=== PATIENT | female | born 1945 | race Caucasian/White ===

== ENCOUNTER 2020-12-05 22:07 | Inpatient (IN) | payer MEDICARE, BC ==
[2020-12-05] MEDS ORDERED: SODIUM CHLORIDE 0.9% 1,000 ML IV STA (22:09)
--- NOTE | 2020-12-05 22:11 | ED ---
Chest Pain HPI - General Stated Complaint: Chest Pain Time Seen by Provider: 12/05/20 22:09 Source: RN notes reviewed, old records reviewed Mode of arrival: EMS Limitations: no limitations - History of Present Illness Initial Comments: This is a 75-year-old female to the ER for evaluation. Patient resents today for evaluation in regards to chest pain. Patient has history of CAD chest pain A. fib hypertension. Patient is on anticoagulation, Xarelto. Patient states she has not been feeling well all day worsening tonight the pain was substernal with no radiation no significant shortness of breath or sweating. MD Complaint: chest pain -: hour(s) (4) Onset: during rest Pain Location: substernal, left chest Pain Radiation: none Severity: moderate Severity scale (1-10): 6 Quality: tightness, heaviness Consistency: constant Improves With: nothing Worsens With: nothing Context: other (none) Anginal Symptoms: nausea, sense of impending doom Other Symptoms: palpitations Treatments Prior to Arrival: none - Related Data Home Medications Medication Instructions Recorded Confirmed Amiodarone HCl [Pacerone] 400 mg PO DAILY 12/05/20 12/05/20 Cholecalciferol [Vitamin D3 (25 50 mcg PO DAILY 12/05/20 12/05/20 Mcg = 1000 Iu)] Cyanocobalamin (Vitamin B-12) 1,000 mcg PO DAILY 12/05/20 12/05/20 [Vitamin B-12] Diltiazem HCl [Diltiazem HCl 24Hr 180 mg PO DAILY 12/05/20 12/05/20 ER (CD)] HYDROcodone/APAP 10-325MG [[place] 1 tab PO Q6H PRN 12/05/20 12/05/20 10-325] Pantoprazole Sodium [Protonix] 40 mg PO DAILY 12/05/20 12/05/20 Rivaroxaban [Xarelto] 20 mg PO DAILY 12/05/20 12/05/20 Venlafaxine HCl ER [Effexor XR] 150 mg PO DAILY 12/05/20 12/05/20 Vit C/E/Zn/Coppr/Lutein/Zeaxan 1 cap PO BID 12/05/20 12/05/20 [Preservision Areds 2 Softgel] amLODIPine [Norvasc] 5 mg PO DIRECTED 12/05/20 12/05/20 Allergies Allergy/AdvReac Type Severity Reaction Status Date / Time diazepam [From Valium] AdvReac Hallucinati Verified 12/05/20 22:15 ons meclizine [From Antivert] AdvReac Anaphylaxis Verified 12/05/20 22:15 Review of Systems ROS Statement: Those systems with pertinent positive or pertinent negative responses have been documented in the HPI. ROS Other: All systems not noted in ROS Statement are negative. EKG Findings - EKG Comments: EKG Findings:: EKG shows a flutter 95 QRS 88 QTc 510 General Exam General appearance: alert, in no apparent distress Head exam: Present: atraumatic, normocephalic, normal inspection Eye exam: Present: normal appearance, PERRL, EOMI. Absent: scleral icterus, conjunctival injection, periorbital swelling ENT exam: Present: normal exam, mucous membranes moist Neck exam: Present: normal inspection. Absent: tenderness, meningismus, lymphadenopathy Respiratory exam: Present: normal lung sounds bilaterally. Absent: respiratory distress, wheezes, rales, rhonchi, stridor Cardiovascular Exam: Present: normal rhythm, bradycardia, normal heart sounds. Absent: systolic murmur, diastolic murmur, rubs, gallop, clicks GI/Abdominal exam: Present: soft, normal bowel sounds. Absent: distended, tenderness, guarding, rebound, rigid Extremities exam: Present: normal inspection, full ROM, normal capillary refill. Absent: tenderness, pedal edema, joint swelling, calf tenderness Back exam: Present: normal inspection Neurological exam: Present: alert, oriented X3, CN II-XII intact Psychiatric exam: Present: normal affect, normal mood Skin exam: Present: warm, dry, intact, normal color. Absent: rash Course Vital Signs 12/05/20 12/05/20 12/06/20 22:09 23:15 00:00 Temperature 97.8 F Pulse Rate 50 L 95 80 Pulse Rate [ Ambulatory Service Representative ] Respiratory 18 18 18 Rate Blood Pressure 110/79 148/82 O2 Sat by Pulse 98 95 95 Oximetry 12/06/20 00:45 Temperature Pulse Rate Pulse Rate [ 64 Ambulatory Service Representative ] Respiratory Rate Blood Pressure O2 Sat by Pulse Oximetry - Reevaluation(s) Reevaluation #1: 12/06/20 01:21 Medical record is reviewed Reevaluation #2: 12/06/20 01:21 Patient still feels uneasy still has chest pain in the ER Reevaluation #3: 12/06/20 01:21 Patient is informed of results and questions are answered - Consultations Consultation #1: Spoke with he to agree to admit this patient Chest Pain MDM - MDM 75 female to the ER for evaluation patient be admitted for chest pain, patient has history of heart disease and CAD and will be admitted for chest pain observation Critical Care Time Critical Care Time: Yes Total Critical Care Time: 31 Disposition Clinical Impression: Chest pain Disposition: ADMITTED IP TO THIS HOSP Condition: Undetermined Is patient prescribed a controlled substance at d/c from ED?: No Referrals: Lewis Mendoza MD [Primary Care Provider] - 1-2 days
[2020-12-05 22:43] LABS: Basophils % (A) 0 %; Eosinophils % (A) 2 %; HCT 39.5 % (34.0-46.0); HGB 13.1 gm/dL (11.4-16.0); Lymphocytes # (A) 2.5 k/uL (1.0-4.8); Lymphocytes % (A) 25 %; MCH 29.5 pg (25.0-35.0); MCHC 33.3 g/dL (31.0-37.0); MCV 88.7 fL (80.0-100.0); Mean Platelet Volume 8.8; Monocytes # (A) 0.5 k/uL (0-1.0); Monocytes % (A) 5 %; Neutrophils # (A) 6.6 k/uL (1.3-7.7); Neutrophils % (A) 66 %; Platelet Count 219 k/uL (150-450); RBC 4.45 m/uL (3.80-5.40); RDW 15.5 % (11.5-15.5); WBC 10.1 k/uL (3.8-10.6)
[2020-12-05 22:44] LABS: Eosinophils # (A) 0.2 k/uL (0-0.7)
--- NOTE | 2020-12-05 22:50 | XR ---
EXAMINATION TYPE: XR chest 2V DATE OF EXAM: 12/05/2020 COMPARISON: NONE HISTORY: Chest pain TECHNIQUE: 2 views FINDINGS: There is no heart failure nor confluent pneumonic infiltrate. Costophrenic angles are clear . There are no hilar masses. There are chest leads. IMPRESSION: No active cardiopulmonary disease. Normal heart.
[2020-12-05 23:06] LABS: Partial Thromboplastin Time 23.9 sec (22.0-30.0); Prothrombin Time 10.5 sec (9.0-12.0)
[2020-12-05 23:30] LABS: Albumin 3.6 g/dL (3.5-5.0); Calcium 8.8 mg/dL (8.4-10.2); Magnesium 2.1 mg/dL (1.6-2.3); Total Bilirubin 0.2 mg/dL (0.2-1.3); Total Protein 6.4 g/dL (6.3-8.2)
[2020-12-06] MEDS ORDERED: ASPIRIN 81 MG PO STA (01:18)
[2020-12-06] MEDS ORDERED: NITROGLYCERIN SL TABS 0.4 MG TAB SUBLINGUAL PRN ×3 (01:18→14:33)
[2020-12-06] MEDS: MORPHINE SULFATE 4 MG/ML SYRINGE IV PRN ×2 (02:20→08:05)
[2020-12-06] MEDS ORDERED: HEPARIN SODIUM 1,000 UN/ML (10ML VL) IV ONE (04:46)
[2020-12-06] MEDS ORDERED: HEPARIN SODIUM 1,000 UN/ML (10ML VL) IV PRN (04:49)
[2020-12-06] MEDS ORDERED: HEPARIN SOD,PORK IN 0.45% NACL 25,000 UNIT in 0.45% NACL 1 250ML.BAG IV SCH (05:00)
--- NOTE | 2020-12-06 08:45 | P.HPIM ---
History of Present Illness H&P Date: 12/06/20 Chief Complaint: Chest pain This is history of physical 75-year-old white female with known history of PAD and hypertension. The patient states significant chest pressure. There has been some titration of her cardiac meds in the past. She states some palpitations but no pain over the last several days. Yesterday she had significant substernal chest pain. Some nausea and diaphoresis is stated. The patient is admitted for rule out myocardial infraction and chest pain. Review of Systems Constitutional: Denies chills, Denies fever Eyes: denies blurred vision, denies pain Ears, nose, mouth and throat: Denies headache, Denies sore throat Cardiovascular: Reports chest pain, Denies leg edema Genitourinary: Denies dysuria, Denies hematuria Integumentary: Reports rash Neurological: Denies numbness, Denies weakness Past Medical History Past Medical History: Coronary Artery Disease (CAD), Chest Pain / Angina, Hypertension Additional Past Medical History / Comment(s): extensive cardiac history, A-fib History of Any Multi-Drug Resistant Organisms: None Reported Past Surgical History: Adenoidectomy, Heart Catheterization With Stent, Orthopedic Surgery, Tonsillectomy Additional Past Surgical History / Comment(s): stents in lower extremities Past Psychological History: No Psychological Hx Reported Smoking Status: Former smoker Past Alcohol Use History: Occasional Past Drug Use History: None Reported Medications and Allergies Home Medications Medication Instructions Recorded Confirmed Type Amiodarone HCl [Pacerone] 400 mg PO DAILY 12/05/20 12/05/20 History Cholecalciferol [Vitamin D3 (25 50 mcg PO DAILY 12/05/20 12/05/20 History Mcg = 1000 Iu)] Cyanocobalamin (Vitamin B-12) 1,000 mcg PO DAILY 12/05/20 12/05/20 History [Vitamin B-12] Diltiazem HCl [Diltiazem HCl 24Hr 180 mg PO DAILY 12/05/20 12/05/20 History ER (CD)] HYDROcodone/APAP 10-325MG [[place] 1 tab PO Q6H PRN 12/05/20 12/05/20 History 10-325] Pantoprazole Sodium [Protonix] 40 mg PO DAILY 12/05/20 12/05/20 History Rivaroxaban [Xarelto] 20 mg PO DAILY 12/05/20 12/05/20 History Venlafaxine HCl ER [Effexor XR] 150 mg PO DAILY 12/05/20 12/05/20 History Vit C/E/Zn/Coppr/Lutein/Zeaxan 1 cap PO BID 12/05/20 12/05/20 History [Preservision Areds 2 Softgel] amLODIPine [Norvasc] 5 mg PO DIRECTED 12/05/20 12/05/20 History Allergies Allergy/AdvReac Type Severity Reaction Status Date / Time diazepam [From Valium] AdvReac Hallucinati Verified 12/05/20 22:15 ons meclizine [From Antivert] AdvReac Anaphylaxis Verified 12/05/20 22:15 Physical Exam Vitals: Vital Signs Temp Pulse Pulse Resp BP BP Pulse Ox 12/06/20 07:51 97.8 F 65 18 131/82 99 12/06/20 05:35 98.0 F 106 H 18 94/71 97 12/06/20 02:16 97.9 F 115 H 18 138/93 95 12/06/20 00:45 64 12/06/20 00:00 80 18 95 12/05/20 23:15 95 18 148/82 95 12/05/20 22:09 97.8 F 50 L 18 110/79 98 Intake and Output 12/05/20 12/06/20 12/06/20 22:59 06:59 14:59 Other: Weight 107.048 kg - Constitutional General appearance: obese - Neck Neck: no lymphadenopathy - Respiratory Respiratory: bilateral: CTA - Cardiovascular Rhythm: regular Heart sounds: normal: S1, S2 Abnormal Heart Sounds: no S3 Gallop - Gastrointestinal General gastrointestinal: soft, no tenderness - Integumentary Integumentary: no cellulitis - Neurologic Neurologic: CNII-XII intact - Musculoskeletal Musculoskeletal: strength equal bilaterally - Psychiatric Psychiatric: A&O x's 3, appropriate affect, intact judgment & insight Results CBC & Chem 7: 12/05/20 22:17 12/05/20 22:17 Labs: Abnormal Lab Results - Last 24 Hours (Table) 12/05/20 12/06/20 12/06/20 Range/Units 22:17 02:19 05:00 Sodium 135 L (137-145) mmol/L BUN 21 H (7-17) mg/dL Glucose 146 H (74-99) mg/dL Troponin I 1.250 H* 2.080 H* (0.000-0.034) ng/mL Assessment and Plan (1) CAD (coronary artery disease) Current Visit: Yes Status: Acute Code(s): I25.10 - ATHSCL HEART DISEASE OF [place] CORONARY ARTERY W/O ANG PCTRS SNOMED Code(s): 13569184 (2) Hypertension Current Visit: Yes Status: Acute Code(s): I10 - ESSENTIAL (PRIMARY) HYPERTENSION SNOMED Code(s): 00321195 (3) PAD (peripheral artery disease) Current Visit: Yes Status: Acute Code(s): I73.9 - PERIPHERAL VASCULAR DISEASE, UNSPECIFIED SNOMED Code(s): 927131854 (4) Chest pain Current Visit: Yes Status: Acute Code(s): R07.9 - CHEST PAIN, UNSPECIFIED SNOMED Code(s): 65395620 Plan: Rule out myocardial infarction. Await cardiology input. Reconcile medications as necessary. Prognosis is guarded. See orders otherwise.
[2020-12-06] MEDS ORDERED: HYDROcodone/APAP 10-325MG 1 EACH TAB PO PRN (08:46)
[2020-12-06] MEDS ORDERED: AMIODARONE 200 MG TAB PO SCH (09:00)
[2020-12-06] MEDS ORDERED: RIVAROXABAN 20 MG TAB PO SCH (09:00)
[2020-12-06] MEDS ORDERED: DILTIAZEM CD 180 MG CAP.ER.24H PO SCH (09:00)
[2020-12-06] MEDS: VIT A,C & E-LUTEIN-MINERALS 1 EACH TAB PO SCH ×2 (10:25→20:08)
[2020-12-06] MEDS: PANTOPRAZOLE 40 MG TABLET PO SCH (10:25)
[2020-12-06] MEDS: VENLAFAXINE HCL ER 150 MG CAP PO SCH (10:25)
[2020-12-06] MEDS: CYANOCOBALAMIN 500 MCG TAB PO SCH (10:25)
[2020-12-06] MEDS: CHOLECALCIFEROL 25 MCG (1000 IU) TABLET PO SCH (10:25)
[2020-12-06] MEDS ORDERED: SODIUM CHLORIDE 0.9% 1,000 ML in EMPTY BAG 1 BAG IV ONE (10:56)
[2020-12-06] MEDS ORDERED: ALPRAZolam 0.25 MG TAB PO PRN (10:56)
[2020-12-06] MEDS ORDERED: ATORVASTATIN 80 MG TAB PO STA (10:56)
[2020-12-06] MEDS ORDERED: ASPIRIN 325 MG TAB PO STA (10:56)
[2020-12-06] MEDS ORDERED: ALPRAZolam 0.5 MG TAB PO PRN (10:56)
--- NOTE | 2020-12-06 11:22 | P.CRDCN ---
History of Present Illness Consult date: 12/06/20 History of present illness: HISTORY OF PRESENT ILLNESS: This is a 75-year-old female with a past medical history significant for hypertension, peripheral vascular disease, former nicotine dependence, and recent diagnosis of paroxysmal atrial fibrillation. Patient follows in the office with Dr. Mulligan. We have been asked to see the patient in consultation for elevated troponins. Patient examined at the bedside in the emergency room. Patient's spouse present. Patient states yesterday she began having chest pain. She denied radiation of the pain. She reports feeling diaphoretic. She also reports that she was having palpitations. She states her son called 911 and she came to the hospital via EMS for evaluation. Patient reports she has been having episodes of dizziness at home. She also reports episodes of her chest "burning" at night when her "meds wear off". Patient reports having chest pain at 2:00 in the morning and received a dose of morphine with relief. She also states she had another episode of chest pain this morning around 8:30. At the time of examination, patient denies chest pain or pressure. Patient reports taking Xarelto at home for her atrial for ablation. She states her last dose was Sunday evening. EKG reveals atrial flutter with controlled ventricular rate. Telemetry reveals sinus mechanism Chest xray no active cardiac pulmonary disease. Laboratory data: WBC 10.1. Hemoglobin 13.1. Platelet count 219. Sodium 135. Potassium 4.0. BUN 21. Creatinine 0.92. Magnesium 2.1. Troponin 0.029. 1.250. 2.080. Current home cardiac medications include Xarelto 20 mg daily, amiodarone 400 mg daily, and Cardizem CD 180 mg daily REVIEW OF SYSTEMS: At the time of my exam: CONSTITUTIONAL: Denies fever or chills. HEENT: Denies blurred vision, vision changes, or eye pain. Denies hemoptysis CARDIOVASCULAR: Denies chest pain. Denies orthopnea. Denies PND. Denies pa lpitations RESPIRATORY: Denies shortness of breath. GASTROINTESTINAL: Denies abdominal pain. Denies nausea or vomiting. HEMATOLOGIC: Denies bleeding disorders. GENITOURINARY: Denies any blood in urine. SKIN: Denies pruitis. Denies rash. PHYSICAL EXAM: VITAL SIGNS: Reviewed. GENERAL: Well-developed in no acute distress. HEENT: Head is normocephalic. Pupils are equal, round. Sclerae anicteric. Mucous membranes of the mouth are moist. Neck supple. No JVD or thyromegaly LUNGS: Respirations even and unlabored. Lungs essentially clear to auscultation bilaterally. HEART: Regular rate and rhythm. S1 and S2 heard. ABDOMEN: Soft. Nondistended. Nontender. EXTREMITIES: Normal range of motion. No clubbing or cyanosis. Peripheral pulses intact. Trace bilateral lower extremity edema NEUROLOGIC: Awake and alert. Oriented x 3. ASSESSMENT: Non-ST elevated myocardial infarction Paroxysmal atrial fibrillation, on anticoagulation with Xarelto Peripheral vascular disease Hypertension Former nicotine dependence PLAN: Obtain 2D echo to assess cardiac structure and function Decrease aspirin to 81 mg daily Continue to hold Xarelto. Continue IV heparin Add metoprolol 25mg BID Patient to undergo cardiac cath today with Dr. Mulligan Further recommendations pending patient course Nurse practitioner note has been reviewed by physician. Signing provider agrees with the documented findings, assessment, and plan of care. Past Medical History Past Medical History: Coronary Artery Disease (CAD), Chest Pain / Angina, Hypertension Additional Past Medical History / Comment(s): extensive cardiac history, A-fib History of Any Multi-Drug Resistant Organisms: None Reported Past Surgical History: Adenoidectomy, Heart Catheterization With Stent, Orthopedic Surgery, Tonsillectomy Additional Past Surgical History / Comment(s): stents in lower extremities Past Anesthesia/Blood Transfusion Reactions: No Reported Reaction Date of Last Stent Placement:: 2008 Past Psychological History: No Psychological Hx Reported Smoking Status: Former smoker Past Alcohol Use History: Occasional Past Drug Use History: None Reported Medications and Allergies Home Medications Medication Instructions Recorded Confirmed Type Amiodarone HCl [Pacerone] 400 mg PO DAILY 12/05/20 12/05/20 History Cholecalciferol [Vitamin D3 (25 50 mcg PO DAILY 12/05/20 12/05/20 History Mcg = 1000 Iu)] Cyanocobalamin (Vitamin B-12) 1,000 mcg PO DAILY 12/05/20 12/05/20 History [Vitamin B-12] Diltiazem HCl [Diltiazem HCl 24Hr 180 mg PO DAILY 12/05/20 12/05/20 History ER (CD)] HYDROcodone/APAP 10-325MG [[place] 1 tab PO Q6H PRN 12/05/20 12/05/20 History 10-325] Pantoprazole Sodium [Protonix] 40 mg PO DAILY 12/05/20 12/05/20 History Rivaroxaban [Xarelto] 20 mg PO DAILY 12/05/20 12/05/20 History Venlafaxine HCl ER [Effexor XR] 150 mg PO DAILY 12/05/20 12/05/20 History Vit C/E/Zn/Coppr/Lutein/Zeaxan 1 cap PO BID 12/05/20 12/05/20 History [Preservision Areds 2 Softgel] Allergies Allergy/AdvReac Type Severity Reaction Status Date / Time diazepam [From Valium] AdvReac Hallucinati Verified 12/05/20 22:15 ons meclizine [From Antivert] AdvReac Anaphylaxis Verified 12/05/20 22:15 Physical Exam Vitals: Vital Signs Temp Pulse Pulse Resp BP BP Pulse Ox 12/06/20 07:51 97.8 F 65 18 131/82 99 12/06/20 05:35 98.0 F 106 H 18 94/71 97 12/06/20 02:16 97.9 F 115 H 18 138/93 95 12/06/20 00:45 64 12/06/20 00:00 80 18 95 12/05/20 23:15 95 18 148/82 95 12/05/20 22:09 97.8 F 50 L 18 110/79 98 Intake and Output 12/05/20 12/06/20 12/06/20 22:59 06:59 14:59 Other: Weight 107.048 kg 107.048 kg Results 12/05/20 22:17 12/05/20 22:17 Cardiac Enzymes 12/05/20 12/05/20 12/06/20 Range/Units 22:17 22:17 02:19 AST 26 (14-36) U/L Troponin I 0.029 1.250 H* (0.000-0.034) ng/mL 12/06/20 Range/Units 05:00 AST (14-36) U/L Troponin I 2.080 H* (0.000-0.034) ng/mL Coagulation 12/05/20 Range/Units 22:17 PT 10.5 (9.0-12.0) sec APTT 23.9 (22.0-30.0) sec CBC 12/05/20 Range/Units 22:17 WBC 10.1 (3.8-10.6) k/uL RBC 4.45 (3.80-5.40) m/uL Hgb 13.1 (11.4-16.0) gm/dL Hct 39.5 (34.0-46.0) % Plt Count 219 (150-450) k/uL Comprehensive Metabolic Panel 12/05/20 Range/Units 22:17 Sodium 135 L (137-145) mmol/L Potassium 4.0 (3.5-5.1) mmol/L Chloride 102 (98-107) mmol/L Carbon Dioxide 25 (22-30) mmol/L BUN 21 H (7-17) mg/dL Creatinine 0.92 (0.52-1.04) mg/dL Glucose 146 H (74-99) mg/dL Calcium 8.8 (8.4-10.2) mg/dL AST 26 (14-36) U/L ALT 17 (4-34) U/L Alkaline Phosphatase 74 (38-126) U/L Total Protein 6.4 (6.3-8.2) g/dL Albumin 3.6 (3.5-5.0) g/dL Current Medications Generic Name Dose Route Start Last Admin Trade Name Freq PRN Reason Stop Dose Admin Hydrocodone Bitart/Acetaminophen 1 each 12/06/20 08:46 Hydrocodone/Apap 10-325mg 1 Each Tab PO Q6H PRN Pain Alprazolam 0.25 mg 12/06/20 10:56 Alprazolam 0.25 Mg Tab PO Q6HR PRN Mild Anxiety Alprazolam 0.5 mg 12/06/20 10:56 Alprazolam 0.5 Mg Tab PO Q6HR PRN Moderate Anxiety Amiodarone HCl 400 mg 12/06/20 09:00 12/06/20 10:25 Amiodarone 200 Mg Tab PO 400 mg DAILY MISSY Administration Aspirin 325 mg 12/07/20 09:00 Aspirin 325 Mg Tab PO DAILY MISSY Cholecalciferol 50 mcg 12/06/20 09:00 12/06/20 10:25 Cholecalciferol 25 Mcg (1000 Iu) Tablet PO 50 mcg DAILY MISSY Administration Cyanocobalamin 1,000 mcg 12/06/20 09:00 12/06/20 10:25 Cyanocobalamin 500 Mcg Tab PO 1,000 mcg DAILY MISSY Administration Diltiazem HCl 180 mg 12/06/20 09:00 12/06/20 10:25 Diltiazem Cd 180 Mg Cap.Er.24h PO 180 mg DAILY MISSY Administration Heparin Sodium (Porcine) 0 unit 12/06/20 04:49 Heparin Sodium 1,000 Un/Ml (10ml Vl) IV Q6HR PRN Low PTT Protocol Heparin Sodium/Sodium Chloride 250 mls @ 10.009 mls/hr 12/06/20 05:00 12/06/20 05:34 25,000 unit/ Sodium Chloride IV 9.35 units/kg/hr .Q24H MISSY 10.009 mls/hr Administration Protocol 9.35 UNITS/KG/HR Sodium Chloride 1,000 ml/ IV 1,000 mls @ 107.048 mls/hr 12/06/20 10:56 Solution IV 12/06/20 20:16 .Q9H21M ONE 1 ML/KG/HR Heparin Sodium (Porcine) 10, 1,001 mls @ 999 mls/hr 12/07/20 07:00 000 unit/ Sodium Chloride IRRIGATION 12/07/20 23:00 ONCE PRN INTRA-OP Heparin Sodium (Porcine) 2,500 250.5 mls @ 250 mls/hr 12/07/20 07:00 unit/ Sodium Chloride IRRIGATION 12/07/20 23:00 ONCE PRN INTRA-OP Morphine Sulfate 4 mg 12/06/20 01:18 12/06/20 08:05 Morphine Sulfate 4 Mg/Ml Syringe IV 4 mg Q4HR PRN Administration Chest Pain Multivitamins/Minerals 1 each 12/06/20 09:00 12/06/20 10:25 Vit A,C & D-Valjol-Rbqtqksq 1 Each Tab PO 1 each BID MISSY Administration Nitroglycerin 0.4 mg 12/06/20 01:18 Nitroglycerin Sl Tabs 0.4 Mg Tab SUBLINGUAL Q5M PRN Chest Pain Nitroglycerin 0.4 mg 12/06/20 10:56 Nitroglycerin Sl Tabs 0.4 Mg Tab SUBLINGUAL Q5M PRN Chest Pain Pantoprazole Sodium 40 mg 12/06/20 09:00 12/06/20 10:25 Pantoprazole 40 Mg Tablet PO 40 mg DAILY@0730 MISSY Administration Venlafaxine HCl 150 mg 12/06/20 09:00 12/06/20 10:25 Venlafaxine Hcl Er 150 Mg Cap PO 150 mg DAILY MISSY Administration Intake and Output 12/05/20 12/06/20 12/06/20 22:59 06:59 14:59 Other: Weight 107.048 kg 107.048 kg 12/05/20 22:17 12/05/20 22:17
[2020-12-06] MEDS ORDERED: VERAPAMIL 2.5 MG/ML 2 ML AMP ONE (11:49)
[2020-12-06] MEDS ORDERED: LIDOCAINE 1% INJ 10MG/ML (20 ML MDV) ONE ×2 (11:50→12:30)
[2020-12-06] MEDS ORDERED: IV FLUID CONTINUATION 1,000 ML IV ONE (11:55)
[2020-12-06] MEDS ORDERED: fentaNYL (PF) 50 MCG/ML 2 ML AMP ONE (12:17)
[2020-12-06] MEDS ORDERED: LIDOCAINE 1% INJ 10MG/ML (20 ML MDV) SQ ONE ×2 (12:20)
[2020-12-06] MEDS: MIDAZOLAM 2 MG/2 ML VIAL IV ONE ×2 (12:21→13:30)
[2020-12-06] MEDS ORDERED: fentaNYL (PF) 50 MCG/ML 2 ML AMP IV ONE (12:21)
[2020-12-06] MEDS ORDERED: VERAPAMIL SYRINGE (5 MG/10 ML) INTRAARTER ONE (12:32)
[2020-12-06] MEDS: HEPARIN SODIUM 1,000 UN/ML (10ML VL) IV ONE ×2 (12:33→12:57)
[2020-12-06] MEDS ORDERED: CLOPIDOGREL 75 MG TAB ONE (12:56)
[2020-12-06] MEDS ORDERED: CLOPIDOGREL 75 MG TAB PO ONE (13:02)
--- NOTE | 2020-12-06 13:02 | P.CARDCATH ---
Date of Procedure: 12/06/20 Preoperative Diagnosis: Non-STEMI Postoperative Diagnosis: Critical lesion involving the mid RCA and moderate disease in the LAD Procedure(s) Performed: Left heart catheterization without left ventriculography Description of Procedure: HISTORY: This is a 75-year-old female with history of hypertension and previous history of smoking and also peripheral vascular disease with previous aortobifemoral bypass, who presented to the hospital with complaints of chest pain, positive troponins suggestive of non-ST DC. Patient is advised to have a cardiac catheterization for definitive diagnosis CONSENT:I have discussed the risks, benefits and alternative therapies for the above-mentioned procedure and for both sedation/analgesia as well as necessary blood product administration, if indicated, as they pertain to this patient. The patient has indicated understanding and acceptance of the risks and procedures discussed. PROCEDURE: Patient was brought to the lab in a fasting state. Patient was given some IV sedation. The right brachial area is infiltrated with lidocaine and right brachial artery was entered using Seldinger technique. A 6-Hebrew catheter was left in place and selective coronary arteriography was performed. Patient tolerated the procedure well. Patient went on to have stent placement of the RCA. No immediate complications were noted and patient was transferred to [facility] in a stable condition Conscious Sedation: Versed 1mg Fentanyl 50 g Duration 27minutes HEMODYNAMICS: The aortic pressure is about 137/70. Left ventricle end-diastolic pressure is 20-25 SELECTIVE CORONARY ARTERIOGRAPHY: LEFT MAIN: Normal length and patent THE LEFT ANTERIOR DESCENDING CORONARY ARTERY: . This is a good caliber vessel giving rise good-sized diagonal branch. There is a 50- 60% lesion in the LAD and origin of the diagonal THE LEFT CIRCUMFLEX AND IS CORONARY ARTERY: This is a fair caliber vessel. Free of any significant focal lesion THE RIGHT CORONARY ARTERY: . This is a good caliber vessel with diffuse disease involving the midportion with about 95% stenosis at worst with a filling defect suggestive of acute ruptured plaque LEFT VENTRICULOGRAPHY: Not performed FINAL IMPRESSION: . Critical lesion involving the RCA. Moderate disease in one LAD PLAN: And placement of the RCA to be done by Dr. Pruitt PROGNOSIS: Fair
[2020-12-06] MEDS ORDERED: IOPAMIDOL-370 125ML BTL INJ ONE (13:17)
[2020-12-06] MEDS ORDERED: HYDROmorphone 0.5 MG/0.5 ML SYRINGE IVP ONE (13:18)
[2020-12-06] MEDS ORDERED: SODIUM CHLORIDE 0.9% 500 ML 500 ML IV ONE (13:20)
[2020-12-06] MEDS: HEPARIN SODIUM 1,000 UN/ML (10ML VL) ONE ×2 (13:35→14:12)
[2020-12-06] MEDS ORDERED: IOPAMIDOL-370 100ML BTL INJ ONE ×2 (14:09→14:27)
[2020-12-06] MEDS ORDERED: MAG HYDROX/AL HYDROX/SIMETH 30 ML CUP PO PRN (14:33)
[2020-12-06] MEDS ORDERED: RX INFO: IV CONTRAST WAS GIVEN 1 EACH MISC MISCELLANE PRN (14:33)
[2020-12-06] MEDS ORDERED: ATROPINE SULFATE 0.1 MG/ML 10ML SYRINGE IV PRN (14:33)
[2020-12-06] MEDS ORDERED: ZOLPIDEM 5 MG TAB PO PRN (14:33)
[2020-12-06] MEDS ORDERED: SODIUM CHLORIDE 0.9% 1,000 ML IV SCH (14:45)
[2020-12-06] MEDS: METOPROLOL TARTRATE 25 MG TAB PO SCH ×2 (15:05→23:00)
--- NOTE | 2020-12-06 15:26 | PTCA ---
PERCUTANEOUSTRANS CORORONARY ANGIOGRAPHY Mrs. Sharpe is a 75-year-old female with known history of severe peripheral vascular disease who presented with fat-RG-nooffvv-elevation myocardial infarction, was evaluated by Dr. Mulligan and underwent cardiac catheterization. She was found to have subtotally occluded mid right coronary artery with heavily calcified vessel; in view of that, recommendation was made regarding angioplasty and stenting. The procedure as well as its risks and complications were discussed with the patient, who was in full understanding and agreement. PROCEDURE: A 6-Wallisian AL0.75 guiding catheter was introduced into the system after cannulating the ostium of the right coronary artery. There was inability to advance the wire and there was evidence to suggest a total occlusion of the vessel with a possible dissection. At that time, the guiding catheter was removed and a 6-Wallisian FR4 and subsequently a 6- Wallisian FR3.5 guiding catheter was introduced into the system. After engaging the right coronary ostium, a 0.014 balanced medium weight J-wire with the help of a straight Super Cross was successful in crossing the lesion and positioned distally. Following that, a 2.5 x 12 mm NC Trek balloon was advanced and multiple inflations to a maximum of 8 atmospheres were done. Following that the balloon was removed and a 2.5 x 33 mm Xience Skypoint was deployed proximally and post-dilated at 16 atmospheres. Following that the balloon was removed and another 0.014 balanced medium weight J-wire was advanced next to the first one in a joesph fashion, positioned distally. Then another 2.5 x 33 mm Xience Skypoint was advanced, positioned distal to the first one and post- dilated at 16 atmospheres. Following that the balloon was removed an IVUS [place] Eye catheter was introduced and images were obtained. Following that, the IVUS catheter was removed and a 3.5 x 18 mm Xience Skypoint was positioned proximally at the ostium and post-dilated at 16 atmospheres. Following that, the balloon was removed and a 3.75 x 15 mm NC Trek balloon was advanced and multiple inflations throughout the stented segments were done at a maximum of 10 atmospheres. After the last inflation, after appropriate wait, the balloon and the guidewire were withdrawn back into the guiding catheter. Images were obtained and repeated. Those images revealed stable successful stenting. At that point, the guiding catheter, the balloon and the guidewire were removed. The sheath was sutured in place the patient was returned to her room in stable condition. Of note, the patient received a total of 9000 units of intravenous heparin and her ACT was followed. She also received a loading dose of clopidogrel. Her chest discomfort resolved at the end of the procedure. RESULT: Successful stenting of the right coronary artery with reduction of stenosis from 95% to 0%. RECOMMENDATIONS: The patient will be continued on aspirin, Plavix, beta jarod, ARI inhibitor and statin. The importance of dual antiplatelet treatment was discussed with the patient her family, and they are in full understanding and agreement. Duration of the procedure was 82 minutes. BRETT / SANJUANAN: [id number] / ANDRZEJ
[2020-12-06] MEDS: lisinopriL 5 MG TAB PO SCH (19:57)
[2020-12-06] MEDS ORDERED: METOPROLOL TARTRATE 25 MG TAB PO SCH (21:00)
[2020-12-06] MEDS: RIVAROXABAN 20 MG TAB PO SCH (22:59)
[2020-12-07] MEDS: PANTOPRAZOLE 40 MG TABLET PO SCH (06:47)
[2020-12-07] MEDS ORDERED: HEPARIN SODIUM,PORCINE 2,500 UNIT in SODIUM CHLORIDE 0.9% 250 ML IRRIGATION PRN (07:00)
[2020-12-07] MEDS ORDERED: HEPARIN SODIUM,PORCINE 10,000 UNIT in SODIUM CHLORIDE 0.9% 1,000 ML IRRIGATION PRN (07:00)
[2020-12-07 08:52] LABS: Calcium 8.9 mg/dL (8.4-10.2); Potassium 4.6 mmol/L (3.5-5.1)
[2020-12-07] MEDS: ASPIRIN 81 MG PO SCH (08:56)
[2020-12-07] MEDS: METOPROLOL TARTRATE 25 MG TAB PO SCH ×3 (08:56→22:37)
[2020-12-07] MEDS: VIT A,C & E-LUTEIN-MINERALS 1 EACH TAB PO SCH ×2 (08:56→19:54)
[2020-12-07] MEDS: AMIODARONE 200 MG TAB PO SCH (08:56)
[2020-12-07] MEDS: VENLAFAXINE HCL ER 150 MG CAP PO SCH (08:56)
[2020-12-07] MEDS: CHOLECALCIFEROL 25 MCG (1000 IU) TABLET PO SCH (08:57)
[2020-12-07] MEDS: PRASUGREL 10 MG TAB PO SCH (08:57)
[2020-12-07] MEDS: lisinopriL 5 MG TAB PO SCH ×2 (08:57→19:54)
[2020-12-07] MEDS: CYANOCOBALAMIN 500 MCG TAB PO SCH (08:57)
[2020-12-07] MEDS ORDERED: ASPIRIN 325 MG TAB PO SCH (09:00)
[2020-12-07] MEDS ORDERED: ASPIRIN 81 MG PO SCH (09:00)
[2020-12-07 11:39] VITALS: BMI 44.2
--- NOTE | 2020-12-07 11:56 | ECHOF ---
Referral Reason:LV functino MEASUREMENTS -------- HEIGHT: 157.5 cm WEIGHT: 109.8 kg BP: 120/28 RVIDd: 2.8 cm (< 3.3) IVSd: 1.2 cm (0.6 - 1.1) LVIDd: 4.4 cm (3.9 - 5.3) LVPWd: 1.1 cm (0.6 - 1.1) IVSs: 1.8 cm LVIDs: 2.6 cm LVPWs: 1.9 cm LAESV Index (A-L): 26.41 ml/m Ao Diam: 3.3 cm (2.0 - 3.7) AV Cusp: 2.2 cm (1.5 - 2.6) LA Diam: 2.6 cm (2.7 - 3.8) MV EXCURSION: 12.842 mm (> 18.000) MV EF SLOPE: 56 mm/s (70 - 150) EPSS: 1.6 cm MV E Ran: 1.02 m/s MV DecT: 280 ms MV A Ran: 1.19 m/s MV E/A Ratio: 0.86 RAP: 5.00 mmHg RVSP: 11.95 mmHg FINDINGS -------- This was a technically difficult study with suboptimal views. The left ventricular size is normal. There is mild concentric left ventricular hypertrophy. Overa ll left ventricular systolic function is low-normal with, an EF between 50 - 55 %. Normal LAP Grade 1 Diastolic Dysfunction. Basal inferior LV wall motion is hypokinetic. Basal inferoseptal LV wa ll motion is hypokinetic. The right ventricle is normal in size. The left atrial size is normal. The right atrial size is normal. Lumason used The aortic valve is trileaflet and appears structurally normal. The mitral valve is normal. There is trace mitral regurgitation. The tricuspid valve appears structurally normal. Trace tricuspid regurgitation present. Right cain tricular systolic pressure is normal at < 35 mmHg. There is no pulmonic regurgitation present. The aortic root size is normal. IVC Not well visulized. There is no pericardial effusion. CONCLUSIONS -------- 1. The left ventricular size is normal. 2. There is mild concentric left ventricular hypertrophy. 3. Overall left ventricular systolic function is low-normal with, an EF between 50 - 55 %. 4. Normal LAP Grade 1 Diastolic Dysfunction. 5. Basal inferior LV wall motion is hypokinetic. 6. Basal inferoseptal LV wall motion is hypokinetic. 7. There is trace mitral regurgitation. 8. Trace tricuspid regurgitation present. 9. There is no pericardial effusion. REGISTERED NURSE POST PARTUM: Britney Vaca RDCS
--- NOTE | 2020-12-07 14:22 | P.PN ---
Subjective Progress Note Date: 12/07/20 HISTORY OF PRESENT ILLNESS: This is a 75-year-old female with a past medical history significant for hypertension, peripheral vascular disease, former nicotine dependence, and recent diagnosis of paroxysmal atrial fibrillation. Patient follows in the office with Dr. Mulligan. We have been asked to see the patient in consultation for elevated troponins. Patient examined at the bedside in the emergency room. Patient's spouse present. Patient states yesterday she began having chest pain. She denied radiation of the pain. She reports feeling diaphoretic. She also reports that she was having palpitations. She states her son called 911 and she came to the hospital via EMS for evaluation. Patient reports she has been having episodes of dizziness at home. She also reports episodes of her chest "burning" at night when her "meds wear off". Patient reports having chest pain at 2:00 in the morning and received a dose of morphine with relief. She also states she had another episode of chest pain this morning around 8:30. At the time of examination, patient denies chest pain or pressure. Patient reports taking Xarelto at home for her atrial for ablation. She states her last dose was Sunday evening. EKG reveals atrial flutter with controlled ventricular rate. Telemetry reveals sinus mechanism Chest xray no active cardiac pulmonary disease. Laboratory data: WBC 10.1. Hemoglobin 13.1. Platelet count 219. Sodium 135. Potassium 4.0. BUN 21. Creatinine 0.92. Magnesium 2.1. Troponin 0.029. 1.250. 2.080. Current home cardiac medications include Xarelto 20 mg daily, amiodarone 400 mg daily, and Cardizem CD 180 mg daily 12/07/2020 Patient examined this morning at the bedside. Patient is status post cardiac catheterization with Dr. Mulligan. She underwent stenting of the right coronary artery with Dr. Pruitt. Patient denies chest pain or pressure. She denies shortness of breath. Vital signs are stable. Echocardiogram completed reveals ejection fraction 50-55%. Basal inferior LV wall hypokinesis. Nasal inferior septal LV wall hypokinesis. Trace mitral regurgitation. Trace tricuspid regurgitation. Vital signs are stable. PHYSICAL EXAM: VITAL SIGNS: Reviewed. GENERAL: Well-developed in no acute distress. HEENT: Head is normocephalic. Pupils are equal, round. Sclerae anicteric. Mucous membranes of the mouth are moist. Neck supple. No JVD or thyromegaly LUNGS: Respirations even and unlabored. Lungs essentially clear to auscultation bilaterally. HEART: Regular rate and rhythm. S1 and S2 heard. EXTREMITIES: Normal range of motion. No clubbing or cyanosis. Peripheral pulses intact. Trace bilateral lower extremity edema. Right brachial cath site with pulse present. ASSESSMENT: Non-ST elevated myocardial infarction, status post PCI to RCA Paroxysmal atrial fibrillation, on anticoagulation with Xarelto Peripheral vascular disease Hypertension Former nicotine dependence PLAN: Continue current cardiac medications Continue to observe patient for an additional 24 hours. Possible discharge home tomorrow Further recommendations pending patient course Nurse practitioner note has been reviewed by physician. Signing provider agrees with the documented findings, assessment, and plan of care. Objective - Vital Signs Vital signs: Vital Signs Temp 98.0 F 12/07/20 12:00 Pulse 67 12/07/20 12:00 Resp 18 12/07/20 12:00 BP 128/66 12/07/20 12:00 Pulse Ox 96 12/07/20 12:00 Intake & Output 12/06/20 12/07/20 12/07/20 18:59 06:59 18:59 Intake Total 470 240 840 Output Total 0 Balance 470 240 840 Weight 109.8 kg 109.8 kg Intake: IV 350 Oral 120 240 840 Output: Urine 0 Other: Voiding Method Toilet Toilet # Voids 2 1 1 - Labs CBC & Chem 7: 12/05/20 22:17 12/07/20 07:58 Labs: Abnormal Lab Results - Last 24 Hours (Table) 12/07/20 Range/Units 07:58 Glucose 103 H (74-99) mg/dL
[2020-12-07] MEDS: RIVAROXABAN 20 MG TAB PO SCH (17:27)
[2020-12-07 20:15] LABS: Chol/HDL Ratio 4.13; LDL Cholesterol,Calculated 120.6 mg/dL (0.0-131.0); VLDL Calculation 20.4 mg/dL (5.00-40.00)
[2020-12-07] MEDS ORDERED: ATORVASTATIN 80 MG TAB PO SCH (21:00)
[2020-12-08] MEDS: PANTOPRAZOLE 40 MG TABLET PO SCH (06:32)
--- NOTE | 2020-12-08 08:36 | P.DS ---
Providers Date of admission: 12/06/20 11:49 Attending physician: Lewis Mendoza Consults: 12/06/20 01:18 Consult Physician Urgent Consulting Provider: Aquiles Pruitt Consult Reason/Comments: cp Do you want consulting provider notified?: Yes 12/06/20 14:33 Consult Physician Routine Consulting Provider: [facility] Consult Reason/Comments: Post Interventional patient Do you want consulting provider notified?: Already Contacted Primary care physician: Lewis Mendoza - Discharge Diagnosis(es) (1) CAD (coronary artery disease) Current Visit: Yes Status: Acute (2) Hypertension Current Visit: Yes Status: Acute (3) PAD (peripheral artery disease) Current Visit: Yes Status: Acute (4) Chest pain Current Visit: Yes Status: Acute Hospital Course: This is a discharge summary and a 75-year-old white female who is essentially admitted for angina. The patient ended up having coronary studies which required multiple stents in RCA. The patient tolerated the procedure was placed on appropriate anticoagulation as dictated by cardiology. The patient is tolerating diet but did have slight fall prior to discharge. No overt chest pressure. She feels back to her "baseline." And the patient will follow-up with me in about 3 days. Patient Condition at Discharge: Stable Plan - Discharge Summary Discharge Rx Participant: No New Discharge Prescriptions: New Prasugrel [Effient] 10 mg PO DAILY #30 tab Atorvastatin [Lipitor] 80 mg PO HS #30 tab Metoprolol Tartrate [Lopressor] 25 mg PO TID #90 tab lisinopriL [Zestril] 5 mg PO BID #60 tab Aspirin [Adult Low Dose Aspirin EC] 81 mg PO DAILY #90 tab Nitroglycerin Sl Tabs [Nitrostat] 0.4 mg SUBLINGUAL Q5M PRN tab PRN Reason: Chest Pain Continue Venlafaxine HCl ER [Effexor XR] 150 mg PO DAILY Rivaroxaban [Xarelto] 20 mg PO DAILY HYDROcodone/APAP 10-325MG [Cassoday 10-325] 1 tab PO Q6H PRN PRN Reason: Pain Vit C/E/Zn/Coppr/Lutein/Zeaxan [Preservision Areds 2 Softgel] 1 cap PO BID Cholecalciferol [Vitamin D3 (25 Mcg = 1000 Iu)] 50 mcg PO DAILY Pantoprazole Sodium [Protonix] 40 mg PO DAILY Diltiazem HCl [Diltiazem HCl 24Hr ER (CD)] 180 mg PO DAILY Amiodarone HCl [Pacerone] 400 mg PO DAILY Cyanocobalamin (Vitamin B-12) [Vitamin B-12] 1,000 mcg PO DAILY Discharge Medication List Amiodarone HCl [Pacerone] 400 mg PO DAILY 12/05/20 [History] Cholecalciferol [Vitamin D3 (25 Mcg = 1000 Iu)] 50 mcg PO DAILY 12/05/20 [History] Cyanocobalamin (Vitamin B-12) [Vitamin B-12] 1,000 mcg PO DAILY 12/05/20 [History] Diltiazem HCl [Diltiazem HCl 24Hr ER (CD)] 180 mg PO DAILY 12/05/20 [History] HYDROcodone/APAP 10-325MG [Cassoday 10-325] 1 tab PO Q6H PRN 12/05/20 [History] Pantoprazole Sodium [Protonix] 40 mg PO DAILY 12/05/20 [History] Rivaroxaban [Xarelto] 20 mg PO DAILY 12/05/20 [History] Venlafaxine HCl ER [Effexor XR] 150 mg PO DAILY 12/05/20 [History] Vit C/E/Zn/Coppr/Lutein/Zeaxan [Preservision Areds 2 Softgel] 1 cap PO BID 12/05/20 [History] Aspirin [Adult Low Dose Aspirin EC] 81 mg PO DAILY #90 tab 12/08/20 [Rx] Atorvastatin [Lipitor] 80 mg PO HS #30 tab 12/08/20 [Rx] Metoprolol Tartrate [Lopressor] 25 mg PO TID #90 tab 12/08/20 [Rx] Nitroglycerin Sl Tabs [Nitrostat] 0.4 mg SUBLINGUAL Q5M PRN tab 12/08/20 [Rx] Prasugrel [Effient] 10 mg PO DAILY #30 tab 12/08/20 [Rx] lisinopriL [Zestril] 5 mg PO BID #60 tab 12/08/20 [Rx] Follow up Appointment(s)/Referral(s): Lewis Mendoza MD [Primary Care Provider] - 3 Days [facility], [NON-STAFF] - Discharge Disposition: HOME SELF-CARE
[2020-12-08 08:43] VITALS: BP 106/61; PULSE 94; RESP 18; TEMP 98.1
[2020-12-08] MEDS: CYANOCOBALAMIN 500 MCG TAB PO SCH (08:43)
[2020-12-08] MEDS: AMIODARONE 200 MG TAB PO SCH (08:44)
[2020-12-08] MEDS: VIT A,C & E-LUTEIN-MINERALS 1 EACH TAB PO SCH (08:44)
[2020-12-08] MEDS: METOPROLOL TARTRATE 25 MG TAB PO SCH (08:44)
[2020-12-08] MEDS: lisinopriL 5 MG TAB PO SCH (08:44)
[2020-12-08] MEDS: ASPIRIN 81 MG PO SCH (08:44)
[2020-12-08] MEDS: CHOLECALCIFEROL 25 MCG (1000 IU) TABLET PO SCH (08:44)
[2020-12-08] MEDS: VENLAFAXINE HCL ER 150 MG CAP PO SCH (08:44)
[2020-12-08] MEDS: PRASUGREL 10 MG TAB PO SCH (08:44)
--- NOTE | 2020-12-08 13:36 | P.PN ---
Subjective Progress Note Date: 12/08/20 HISTORY OF PRESENT ILLNESS: This is a 75-year-old female with a past medical history significant for hypertension, peripheral vascular disease, former nicotine dependence, and recent diagnosis of paroxysmal atrial fibrillation. Patient follows in the office with Dr. Mulligan. We have been asked to see the patient in consultation for elevated troponins. Patient examined at the bedside in the emergency room. Patient's spouse present. Patient states yesterday she began having chest pain. She denied radiation of the pain. She reports feeling diaphoretic. She also reports that she was having palpitations. She states her son called 911 and she came to the hospital via EMS for evaluation. Patient reports she has been having episodes of dizziness at home. She also reports episodes of her chest "burning" at night when her "meds wear off". Patient reports having chest pain at 2:00 in the morning and received a dose of morphine with relief. She also states she had another episode of chest pain this morning around 8:30. At the time of examination, patient denies chest pain or pressure. Patient reports taking Xarelto at home for her atrial for ablation. She states her last dose was Sunday evening. EKG reveals atrial flutter with controlled ventricular rate. Telemetry reveals sinus mechanism Chest xray no active cardiac pulmonary disease. Laboratory data: WBC 10.1. Hemoglobin 13.1. Platelet count 219. Sodium 135. Potassium 4.0. BUN 21. Creatinine 0.92. Magnesium 2.1. Troponin 0.029. 1.250. 2.080. Current home cardiac medications include Xarelto 20 mg daily, amiodarone 400 mg daily, and Cardizem CD 180 mg daily 12/07/2020 Patient examined this morning at the bedside. Patient is status post cardiac catheterization with Dr. Mulligan. She underwent stenting of the right coronary artery with Dr. Pruitt. Patient denies chest pain or pressure. She denies shortness of breath. Vital signs are stable. Echocardiogram completed reveals ejection fraction 50-55%. Basal inferior LV wall hypokinesis. Nasal inferior septal LV wall hypokinesis. Trace mitral regurgitation. Trace tricuspid regurgitation. Vital signs are stable. 12/08/2020 Patient examined this morning at the bedside. Patient denies chest pain or pre ssure. She denies shortness of breath. Vital signs are stable. She is anxious to be discharged home today. PHYSICAL EXAM: VITAL SIGNS: Reviewed. GENERAL: Well-developed in no acute distress. HEENT: Head is normocephalic. Pupils are equal, round. Sclerae anicteric. Mucous membranes of the mouth are moist. Neck supple. No JVD or thyromegaly LUNGS: Respirations even and unlabored. Lungs essentially clear to auscultation bilaterally. HEART: Regular rate and rhythm. S1 and S2 heard. EXTREMITIES: Normal range of motion. No clubbing or cyanosis. Peripheral pulses intact. Trace bilateral lower extremity edema. Right brachial cath site with pulse present. ASSESSMENT: Non-ST elevated myocardial infarction, status post PCI to RCA Paroxysmal atrial fibrillation, on anticoagulation with Xarelto Peripheral vascular disease Hypertension Former nicotine dependence PLAN: Continue current cardiac medications Patient is stable for discharge home today from a cardiac standpoint She is to follow up on an outpatient basis Nurse practitioner note has been reviewed by physician. Signing provider agrees with the documented findings, assessment, and plan of care. Objective - Vital Signs Vital signs: Vital Signs Temp 98.1 F 12/08/20 08:00 Pulse 94 12/08/20 08:00 Resp 18 12/08/20 08:00 BP 106/61 12/08/20 08:00 Pulse Ox 96 12/08/20 08:00 Intake & Output 12/07/20 12/08/20 12/08/20 18:59 06:59 18:59 Intake Total 1560 240 120 Balance 1560 240 120 Weight 109.8 kg 109.4 kg Intake: Oral 1560 240 120 Other: Voiding Method Toilet Toilet Toilet # Voids 3 1 - Labs CBC & Chem 7: 12/05/20 22:17 12/07/20 07:58
== END 2020-12-08 11:26 | disposition home or self-care (01) | DRG 247 ==
LOC: EC 22:07 → 1SOBS 12-06 01:18 → 3SCARD 12-06 04:29 → OBSVTOIN 12-06 11:49 → 3SCARD 12-06 14:23
PROVIDERS: ADMIT Family Medicine; ATTEND Family Medicine
PROC: 027036Z Dilation of Coronary Artery, One Artery with Three Drug-eluting Intraluminal Devices, Percutaneous Approach (ICD-10-PCS; principal; 2020-12-06 12:30)
PROC: B2111ZZ Fluoroscopy of Multiple Coronary Arteries using Low Osmolar Contrast (ICD-10-PCS; 2020-12-06 12:30)
PROC: 4A023N7 Measurement of Cardiac Sampling and Pressure, Left Heart, Percutaneous Approach (ICD-10-PCS; 2020-12-06 12:30)
DX: I21.4 Non-ST elevation (NSTEMI) myocardial infarction (principal); I48.92 Unspecified atrial flutter; I25.10 Atherosclerotic heart disease of native coronary artery without angina pectoris; I10 Essential (primary) hypertension; I48.0 Paroxysmal atrial fibrillation; I73.9 Peripheral vascular disease, unspecified; Z79.01 Long term (current) use of anticoagulants; Z79.899 Other long term (current) drug therapy; Z87.891 Personal history of nicotine dependence; Z98.61 Coronary angioplasty status; Z95.828 Presence of other vascular implants and grafts; Z90.89 Acquired absence of other organs
CPT/HCPCS: 36415; 71046; 80048; 80053; 80061; 83690; 83735; 83880; 84484; 85025; 85610; 85730; 92978; 93005; 93306; 93458; 96360; 99291

== ENCOUNTER → 2020-12-27 | Outpatient (CLI) | payer MEDICARE, BC | END | disposition home or self-care (01) | LOC: LABWHC1 16:05 | PROVIDERS: ATTEND Family Medicine | DX: Z20.822 Contact with and (suspected) exposure to COVID-19 (principal) | CPT/HCPCS: U0003; C9803; U0005 ==

== ENCOUNTER 2021-01-10 17:43 | Inpatient (IN) | payer MEDICARE, BC ==
[2021-01-10 20:15] LABS: Basophils % (A) 0 %; Eosinophils # (A) 0.1 k/uL (0-0.7); Eosinophils % (A) 1 %; HCT 40.9 % (34.0-46.0); Lymphocytes % (A) 9 %; MCH 28.6 pg (25.0-35.0); MCHC 31.7 g/dL (31.0-37.0); MCV 90.2 fL (80.0-100.0); Mean Platelet Volume 10.3; Monocytes # (A) 0.6 k/uL (0-1.0); Monocytes % (A) 3 %; Neutrophils # (A) 18.7 k/uL (1.3-7.7); Neutrophils % (A) 87 %; Platelet Count 290 k/uL (150-450); RBC 4.53 m/uL (3.80-5.40); RDW 15.6 % (11.5-15.5); WBC 21.5 k/uL (3.8-10.6)
[2021-01-10 20:25] LABS: Albumin 3.7 g/dL (3.5-5.0); Calcium 9.1 mg/dL (8.4-10.2); Total Bilirubin 0.5 mg/dL (0.2-1.3); Total Protein 6.7 g/dL (6.3-8.2)
[2021-01-10 20:38] LABS: Potassium 4.8 mmol/L (3.5-5.1)
[2021-01-10] MEDS ORDERED: PANTOPRAZOLE 40 MG/10 ML VIAL IVP STA (20:51)
[2021-01-10] MEDS ORDERED: HYDROmorphone 0.5 MG/0.5 ML SYRINGE IVP STA (20:51)
--- NOTE | 2021-01-10 20:57 | ED ---
General Adult HPI - General Chief complaint: GI Bleed Stated complaint: diarrhea, blood in stool Time Seen by Provider: 01/10/21 20:36 Source: patient, family, RN notes reviewed Mode of arrival: ambulatory Limitations: no limitations - History of Present Illness Initial comments: Patient is a pleasant 75-year-old female presenting to the emergency Department with rectal bleeding. Onset of symptoms was a few hours ago. Patient has had some discomfort left lower abdomen today. No fevers. Patient does have history of diverticular disease. Blood is bright red mixed with stool. No vomiting. - Related Data Home Medications Medication Instructions Recorded Confirmed Amiodarone HCl [Pacerone] 400 mg PO DAILY 12/05/20 01/10/21 Cholecalciferol [Vitamin D3 (25 25 mcg PO DAILY 12/05/20 01/10/21 Mcg = 1000 Iu)] Cyanocobalamin (Vitamin B-12) 1,000 mcg PO DAILY 12/05/20 01/10/21 [Vitamin B-12] Diltiazem HCl [Diltiazem HCl 24Hr 180 mg PO DAILY 12/05/20 01/10/21 ER (CD)] HYDROcodone/APAP 10-325MG [Bronson 1 tab PO Q6H PRN 12/05/20 01/10/21 10-325] Pantoprazole Sodium [Protonix] 40 mg PO DAILY 12/05/20 01/10/21 Rivaroxaban [Xarelto] 20 mg PO W/SUPPER 12/05/20 01/10/21 Venlafaxine HCl ER [Effexor XR] 150 mg PO DAILY 12/05/20 01/10/21 Vit C/E/Zn/Coppr/Lutein/Zeaxan 1 cap PO DAILY 12/05/20 01/10/21 [Preservision Areds 2 Softgel] Previous Rx's Medication Instructions Recorded Aspirin [Adult Low Dose Aspirin EC] 81 mg PO DAILY #90 tab 12/08/20 Atorvastatin [Lipitor] 80 mg PO HS #30 tab 12/08/20 Metoprolol Tartrate [Lopressor] 25 mg PO TID #90 tab 12/08/20 Nitroglycerin Sl Tabs [Nitrostat] 0.4 mg SUBLINGUAL Q5M PRN tab 12/08/20 Prasugrel [Effient] 10 mg PO DAILY #30 tab 12/08/20 lisinopriL [Zestril] 5 mg PO BID #60 tab 12/08/20 Allergies Allergy/AdvReac Type Severity Reaction Status Date / Time diazepam [From Valium] AdvReac Hallucinati Verified 01/10/21 21:23 ons meclizine [From Antivert] AdvReac Anaphylaxis Verified 01/10/21 21:23 Review of Systems ROS Statement: Those systems with pertinent positive or pertinent negative responses have been documented in the HPI. ROS Other: All systems not noted in ROS Statement are negative. Constitutional: Denies: fever Eyes: Denies: eye pain ENT: Denies: ear pain Respiratory: Denies: cough Cardiovascular: Denies: chest pain Endocrine: Denies: fatigue Gastrointestinal: Reports: as per HPI, abdominal pain, hematochezia Genitourinary: Denies: dysuria Musculoskeletal: Denies: back pain Skin: Denies: rash Neurological: Denies: weakness Past Medical History Past Medical History: Coronary Artery Disease (CAD), Chest Pain / Angina, Hypertension Additional Past Medical History / Comment(s): extensive cardiac history, A-fib History of Any Multi-Drug Resistant Organisms: None Reported Past Surgical History: Adenoidectomy, Heart Catheterization With Stent, Orthopedic Surgery, Tonsillectomy Additional Past Surgical History / Comment(s): stents in lower extremities Past Anesthesia/Blood Transfusion Reactions: No Reported Reaction Date of Last Stent Placement:: 2008 Past Psychological History: No Psychological Hx Reported Smoking Status: Former smoker Past Alcohol Use History: Occasional Past Drug Use History: None Reported General Exam Limitations: no limitations General appearance: alert, in no apparent distress Head exam: Present: normocephalic Eye exam: Present: normal appearance Neck exam: Present: normal inspection Respiratory exam: Present: normal lung sounds bilaterally Cardiovascular Exam: Present: regular rate, normal rhythm GI/Abdominal exam: Present: soft, tenderness (Moderate left-sided tenderness). Absent: distended, guarding, rebound, rigid Rectal exam: Present: normal inspection (Limited stool on exam) Back exam: Present: normal inspection Neurological exam: Present: alert Psychiatric exam: Present: normal affect, normal mood Skin exam: Present: normal color Course Vital Signs 01/10/21 01/10/21 18:49 21:36 Temperature 98.5 F Pulse Rate 48 L 56 L Respiratory 20 16 Rate Blood Pressure 87/47 123/62 O2 Sat by Pulse 93 L 99 Oximetry EKG Findings - EKG Comments: EKG Findings:: Sinus bradycardia with rate of 54. RI 172. QRS 88. QT 452. QTC 420. Normal axis. Normal QRS. No acute ST change. Medical Decision Making - Medical Decision Making Patient reevaluated. Patient and family updated. Case was discussed with Dr. Wells, who will consult. Dr. Mendoza has been paged for admission. - Lab Data Result diagrams: 01/10/21 20:01 01/10/21 20:01 Lab Results 01/10/21 01/10/21 01/10/21 Range/Units 20:01 20:01 20:01 WBC 21.5 H (3.8-10.6) k/uL RBC 4.53 (3.80-5.40) m/uL Hgb 13.0 (11.4-16.0) gm/dL Hct 40.9 (34.0-46.0) % MCV 90.2 (80.0-100.0) fL MCH 28.6 (25.0-35.0) pg MCHC 31.7 (31.0-37.0) g/dL RDW 15.6 H (11.5-15.5) % Plt Count 290 (150-450) k/uL MPV 10.3 Neutrophils % 87 % Lymphocytes % 9 % Monocytes % 3 % Eosinophils % 1 % Basophils % 0 % Neutrophils # 18.7 H (1.3-7.7) k/uL Lymphocytes # 2.0 (1.0-4.8) k/uL Monocytes # 0.6 (0-1.0) k/uL Eosinophils # 0.1 (0-0.7) k/uL Basophils # 0.0 (0-0.2) k/uL PT (9.0-12.0) sec INR (<1.2) APTT 22.4 (22.0-30.0) sec Sodium 136 L (137-145) mmol/L Potassium 4.8 (3.5-5.1) mmol/L Chloride 102 (98-107) mmol/L Carbon Dioxide 24 (22-30) mmol/L Anion Gap 10 mmol/L BUN 37 H (7-17) mg/dL Creatinine 1.53 H (0.52-1.04) mg/dL Est GFR (CKD-EPI)AfAm 38 (>60 ml/min/1.73 sqM) Est GFR (CKD-EPI)NonAf 33 (>60 ml/min/1.73 sqM) Glucose 125 H (74-99) mg/dL Calcium 9.1 (8.4-10.2) mg/dL Total Bilirubin 0.5 (0.2-1.3) mg/dL AST 25 (14-36) U/L ALT 19 (4-34) U/L Alkaline Phosphatase 78 (38-126) U/L Troponin I (0.000-0.034) ng/mL Total Protein 6.7 (6.3-8.2) g/dL Albumin 3.7 (3.5-5.0) g/dL Stool Occult Blood (Negative) 01/10/21 01/10/21 01/10/21 Range/Units 20:01 21:08 21:08 WBC (3.8-10.6) k/uL RBC (3.80-5.40) m/uL Hgb (11.4-16.0) gm/dL Hct (34.0-46.0) % MCV (80.0-100.0) fL MCH (25.0-35.0) pg MCHC (31.0-37.0) g/dL RDW (11.5-15.5) % Plt Count (150-450) k/uL MPV Neutrophils % % Lymphocytes % % Monocytes % % Eosinophils % % Basophils % % Neutrophils # (1.3-7.7) k/uL Lymphocytes # (1.0-4.8) k/uL Monocytes # (0-1.0) k/uL Eosinophils # (0-0.7) k/uL Basophils # (0-0.2) k/uL PT 12.1 H (9.0-12.0) sec INR 1.2 H (<1.2) APTT (22.0-30.0) sec Sodium (137-145) mmol/L Potassium (3.5-5.1) mmol/L Chloride (98-107) mmol/L Carbon Dioxide (22-30) mmol/L Anion Gap mmol/L BUN (7-17) mg/dL Creatinine (0.52-1.04) mg/dL Est GFR (CKD-EPI)AfAm (>60 ml/min/1.73 sqM) Est GFR (CKD-EPI)NonAf (>60 ml/min/1.73 sqM) Glucose (74-99) mg/dL Calcium (8.4-10.2) mg/dL Total Bilirubin (0.2-1.3) mg/dL AST (14-36) U/L ALT (4-34) U/L Alkaline Phosphatase (38-126) U/L Troponin I <0.012 (0.000-0.034) ng/mL Total Protein (6.3-8.2) g/dL Albumin (3.5-5.0) g/dL Stool Occult Blood Positive H (Negative) - Radiology Data Radiology results: report reviewed (Computed tomography scan of abdomen and pelvis shows wall thickening long segment sigmoid colon consistent with colitis or diverticulitis. No abscess.), image reviewed (Chest x-ray shows mild right angelica-diaphragm elevation, unchanged.) Disposition Clinical Impression: Diverticulitis Disposition: ADMITTED IP TO THIS [facility] Is patient prescribed a controlled substance at d/c from ED?: No Referrals: Lewis Mendoza MD [Primary Care Provider] - 1-2 days Decision Time: 23:04
[2021-01-10 21:15] LABS: INR 1.2 (<1.2); Prothrombin Time 12.1 sec (9.0-12.0)
[2021-01-10] MEDS ORDERED: SODIUM CHLORIDE 0.9% 1,000 ML IV STA (21:22)
[2021-01-10] MEDS ORDERED: SODIUM CHLORIDE 0.9% 500 ML 500 ML IV STA (21:22)
--- NOTE | 2021-01-10 21:24 | XR ---
EXAMINATION TYPE: XR chest 1V portable DATE OF EXAM: 01/10/2021 COMPARISON: 12/05/2020 HISTORY: Cough TECHNIQUE: FINDINGS: Heart and mediastinum appear normal. Lungs appear clear of infiltrate. There is elevated ri ght diaphragm. Bony thorax is intact. There is no heart failure. IMPRESSION: There is mild chronic elevation of the right diaphragm without change. 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 Normal heart.
--- NOTE | 2021-01-10 22:58 | CT ---
EXAMINATION TYPE: CT abdomen pelvis w con DATE OF EXAM: 01/10/2021 COMPARISON: None HISTORY: abd pain CT DLP: 1614.8 mGycm Automated exposure control for dose reduction was used. CONTRAST: Performed with IV Contrast, patient injected with 80 mL of Isovue 300. Images obtained from the diaphragm to the floor the pelvis with IV contrast. Lung bases are clear. There is no pleural effusion. Heart size is normal. There is no pericardial eff usion. Liver spleen pancreas gallbladder stomach appear intact. The bile ducts are not dilated. There is no adrenal mass. Kidneys have normal size. There is satisfactory contrast opacification of t he kidneys. There is no hydronephrosis. Ureters are not dilated. 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 There is no retroperitoneal adenopathy. Bladder distends smoothly. There is right hip prosthesis. The re is no free fluid in the pelvis. Uterus is anteverted. There is no sign of a pelvic mass. Appendix is not seen. There is some wall thickening of the descending colon and sigmoid colon with scattered diverticula an d mild fat stranding. There is no ascites. There is no free air. There is no bowel obstruction. Lumbar vertebra have normal alignment. There is no compression fracture. There is right hip prosthesi s. Bony pelvis is intact. Hip joints are intact. IMPRESSION: There is sigmoid diverticula with wall thickening involving long segment of the sigmoid colon and con sistent with colitis or diverticulitis. No abscess.
[2021-01-10] MEDS ORDERED: AMPICILLIN-SULBACTAM 3 GM in SODIUM CHLORIDE 0.9% 100 ML IVPB STA (23:04)
[2021-01-10] MEDS ORDERED: ACETAMINOPHEN TAB 325 MG TAB PO PRN (23:06)
[2021-01-10] MEDS ORDERED: NALOXONE 0.4 MG/ML 1 ML VIAL IV PRN (23:06)
[2021-01-10] MEDS ORDERED: HYDROmorphone 1 MG/ML 1 ML SYRINGE IVP PRN (23:06)
[2021-01-10] MEDS: SODIUM CHLORIDE 0.9% 1,000 ML IV SCH (23:48)
[2021-01-11 04:12] LABS: Basophils % (A) 0 %; Eosinophils # (A) 0.1 k/uL (0-0.7); Eosinophils % (A) 1 %; HCT 36.3 % (34.0-46.0); HGB 11.4 gm/dL (11.4-16.0); Lymphocytes # (A) 2.7 k/uL (1.0-4.8); Lymphocytes % (A) 20 %; MCHC 31.4 g/dL (31.0-37.0); MCV 92.2 fL (80.0-100.0); Mean Platelet Volume 10.6; Monocytes # (A) 0.6 k/uL (0-1.0); Monocytes % (A) 4 %; Neutrophils # (A) 10.3 k/uL (1.3-7.7); Neutrophils % (A) 74 %; Platelet Count 199 k/uL (150-450); RBC 3.94 m/uL (3.80-5.40); RDW 15.5 % (11.5-15.5); WBC 13.9 k/uL (3.8-10.6)
[2021-01-11 04:28] LABS: Calcium 8.5 mg/dL (8.4-10.2); Potassium 4.8 mmol/L (3.5-5.1); Total Bilirubin 0.4 mg/dL (0.2-1.3); Total Protein 5.6 g/dL (6.3-8.2)
[2021-01-11] MEDS: AMPICILLIN-SULBACTAM 1.5 GM in SODIUM CHLORIDE 0.9% 50 ML IVPB SCH ×4 (07:32→23:24)
[2021-01-11] MEDS: HYDROmorphone 0.5 MG/0.5 ML SYRINGE IVP PRN ×2 (07:32→16:06)
[2021-01-11] MEDS: SODIUM CHLORIDE 0.9% 1,000 ML IV SCH ×3 (07:33→23:24)
[2021-01-11] MEDS ORDERED: PANTOPRAZOLE 40 MG/10 ML VIAL IV SCH (09:00)
--- NOTE | 2021-01-11 13:19 | P.GSCN ---
History of Present Illness Consult date: 01/11/21 History of present illness: CHIEF COMPLAINT: Blood in stool HISTORY OF PRESENT ILLNESS: This is a 75-year-old female who presented to the hospital with complaints of left lower quadrant abdominal pain that started yesterday. She also was having bright red blood per rectum that was mixed with stool. She does have a history of diverticular disease. Patient does take Xarelto and Effient at home. Patient denies any fever chills or sweats. Denies any nausea or vomiting. Patient seen and examined with Dr. ortiz PAST MEDICAL HISTORY: Coronary artery disease with cardiac stent, hypertension, atrial fibrillation PAST SURGICAL HISTORY: Adenoidectomy, Heart Catheterization With Stent, Orthopedic Surgery, Tonsillectomy. Stents in lower extremities MEDICATIONS: See list below ALLERGIES: See list below SOCIAL HISTORY: No illicit drug use. Former smoker REVIEW OF SYSTEMS: CONSTITUTIONAL: Denies fever or chills. HEENT: Denies blurred vision, vision changes, or eye pain. Denies hemoptysis CARDIOVASCULAR: Denies chest pain or pressure. RESPIRATORY: No shortness of breath. GASTROINTESTINAL: See HPI for pertinent findings HEMATOLOGIC: Denies bleeding disorders. GENITOURINARY: Denies any blood in urine or increased urinary frequency. SKIN: Denies pruitis. Denies rash. PHYSICAL EXAM: VITAL SIGNS: Reviewed GENERAL: Well-developed in no acute distress. HEENT: No sclera icterus. Extraocular movements grossly intact. Moist buccal mucosa. Head is atraumatic, normocephalic. No nasal drainage. ABDOMEN: Soft. Nondistended. Tenderness to palpation of left lower quadrant NEUROLOGIC: Alert and oriented. Cranial nerves II through XII grossly intact. LABORATORY DATA: WBC 21.5 down to 13.9 Hemoglobin 13 down to 11.4 Sodium 137 potassium 4.8 creatinine 1.40 Stool positive for occult blood COVID-19 not detected IMAGING: Computed tomography scan abdomen and pelvis shows sigmoid diverticula with wall thickening involving long segment of the sigmoid colon consistent with colitis or diverticulitis. No abscess ASSESSMENT: 1. Acute diverticulitis 2. Rectal bleeding likely due to diverticular bleed secondary to the diverticulitis PLAN: -Continue conservative management -Continue antibiotics -Continue IV fluids -Continue clear liquid diet -Repeat CBC in a.m. -Hold Xarelto and Effient -Recommend outpatient colonoscopy in 6-8 weeks Thank you for this consultation Physician Baker Paint note has been reviewed by physician. Signing provider agrees with the documented findings, assessment, and plan of care. Past Medical History Past Medical History: Coronary Artery Disease (CAD), Chest Pain / Angina, Hypertension Additional Past Medical History / Comment(s): extensive cardiac history, A-fib History of Any Multi-Drug Resistant Organisms: None Reported Past Surgical History: Adenoidectomy, Heart Catheterization With Stent, Orthopedic Surgery, Tonsillectomy Additional Past Surgical History / Comment(s): stents in lower extremities Past Anesthesia/Blood Transfusion Reactions: No Reported Reaction Date of Last Stent Placement:: 2008 Past Psychological History: No Psychological Hx Reported Smoking Status: Former smoker Past Alcohol Use History: Occasional Past Drug Use History: None Reported Medications and Allergies Home Medications Medication Instructions Recorded Confirmed Type Amiodarone HCl [Pacerone] 400 mg PO DAILY 12/05/20 01/10/21 History Cholecalciferol [Vitamin D3 (25 25 mcg PO DAILY 12/05/20 01/10/21 History Mcg = 1000 Iu)] Cyanocobalamin (Vitamin B-12) 1,000 mcg PO DAILY 12/05/20 01/10/21 History [Vitamin B-12] Diltiazem HCl [Diltiazem HCl 24Hr 180 mg PO DAILY 12/05/20 01/10/21 History ER (CD)] HYDROcodone/APAP 10-325MG [[place] 1 tab PO Q6H PRN 12/05/20 01/10/21 History 10-325] Pantoprazole Sodium [Protonix] 40 mg PO DAILY 12/05/20 01/10/21 History Rivaroxaban [Xarelto] 20 mg PO W/SUPPER 12/05/20 01/10/21 History Venlafaxine HCl ER [Effexor XR] 150 mg PO DAILY 12/05/20 01/10/21 History Vit C/E/Zn/Coppr/Lutein/Zeaxan 1 cap PO DAILY 12/05/20 01/10/21 History [Preservision Areds 2 Softgel] Aspirin [Adult Low Dose Aspirin EC] 81 mg PO DAILY #90 tab 12/08/20 01/10/21 Rx Atorvastatin [Lipitor] 80 mg PO HS #30 tab 12/08/20 01/10/21 Rx Metoprolol Tartrate [Lopressor] 25 mg PO TID #90 tab 12/08/20 01/10/21 Rx Nitroglycerin Sl Tabs [Nitrostat] 0.4 mg SUBLINGUAL Q5M PRN tab 12/08/20 01/10/21 Rx Prasugrel [Effient] 10 mg PO DAILY #30 tab 12/08/20 01/10/21 Rx lisinopriL [Zestril] 5 mg PO BID #60 tab 12/08/20 01/10/21 Rx Allergies Allergy/AdvReac Type Severity Reaction Status Date / Time diazepam [From Valium] AdvReac Hallucinati Verified 01/10/21 21:23 ons meclizine [From Antivert] AdvReac Anaphylaxis Verified 01/10/21 21:23 Surgical - Exam Vital Signs Temp Pulse Resp BP Pulse Ox 98.5 F 48 L 20 87/47 93 L 01/10/21 18:49 01/10/21 18:49 01/10/21 18:49 01/10/21 18:49 01/10/21 18:49 Results - Labs 01/11/21 03:34 01/11/21 03:34 Abnormal Lab Results - Last 24 Hours (Table) 01/10/21 01/10/21 01/10/21 Range/Units 20:01 20:01 21:08 WBC 21.5 H (3.8-10.6) k/uL RDW 15.6 H (11.5-15.5) % Neutrophils # 18.7 H (1.3-7.7) k/uL PT (9.0-12.0) sec INR (<1.2) Sodium 136 L (137-145) mmol/L BUN 37 H (7-17) mg/dL Creatinine 1.53 H (0.52-1.04) mg/dL Glucose 125 H (74-99) mg/dL Total Protein (6.3-8.2) g/dL Albumin (3.5-5.0) g/dL Stool Occult Blood Positive H (Negative) 01/10/21 01/11/21 01/11/21 Range/Units 21:08 03:34 03:34 WBC 13.9 H (3.8-10.6) k/uL RDW (11.5-15.5) % Neutrophils # 10.3 H (1.3-7.7) k/uL PT 12.1 H (9.0-12.0) sec INR 1.2 H (<1.2) Sodium (137-145) mmol/L BUN 33 H (7-17) mg/dL Creatinine 1.40 H (0.52-1.04) mg/dL Glucose 105 H (74-99) mg/dL Total Protein 5.6 L (6.3-8.2) g/dL Albumin 3.0 L (3.5-5.0) g/dL Stool Occult Blood (Negative) Diabetes panel 01/10/21 01/11/21 Range/Units 20:01 03:34 Sodium 136 L 137 (137-145) mmol/L Potassium 4.8 4.8 (3.5-5.1) mmol/L Chloride 102 105 (98-107) mmol/L Carbon Dioxide 24 26 (22-30) mmol/L BUN 37 H 33 H (7-17) mg/dL Creatinine 1.53 H 1.40 H (0.52-1.04) mg/dL Glucose 125 H 105 H (74-99) mg/dL Calcium 9.1 8.5 (8.4-10.2) mg/dL AST 25 19 (14-36) U/L ALT 19 16 (4-34) U/L Alkaline Phosphatase 78 63 (38-126) U/L Total Protein 6.7 5.6 L (6.3-8.2) g/dL Albumin 3.7 3.0 L (3.5-5.0) g/dL Calcium panel 01/10/21 01/11/21 Range/Units 20:01 03:34 Calcium 9.1 8.5 (8.4-10.2) mg/dL Albumin 3.7 3.0 L (3.5-5.0) g/dL Pituitary panel 01/10/21 01/11/21 Range/Units 20:01 03:34 Sodium 136 L 137 (137-145) mmol/L Potassium 4.8 4.8 (3.5-5.1) mmol/L Chloride 102 105 (98-107) mmol/L Carbon Dioxide 24 26 (22-30) mmol/L BUN 37 H 33 H (7-17) mg/dL Creatinine 1.53 H 1.40 H (0.52-1.04) mg/dL Glucose 125 H 105 H (74-99) mg/dL Calcium 9.1 8.5 (8.4-10.2) mg/dL Adrenal panel 01/10/21 01/11/21 Range/Units 20:01 03:34 Sodium 136 L 137 (137-145) mmol/L Potassium 4.8 4.8 (3.5-5.1) mmol/L Chloride 102 105 (98-107) mmol/L Carbon Dioxide 24 26 (22-30) mmol/L BUN 37 H 33 H (7-17) mg/dL Creatinine 1.53 H 1.40 H (0.52-1.04) mg/dL Glucose 125 H 105 H (74-99) mg/dL Calcium 9.1 8.5 (8.4-10.2) mg/dL Total Bilirubin 0.5 0.4 (0.2-1.3) mg/dL AST 25 19 (14-36) U/L ALT 19 16 (4-34) U/L Alkaline Phosphatase 78 63 (38-126) U/L Total Protein 6.7 5.6 L (6.3-8.2) g/dL Albumin 3.7 3.0 L (3.5-5.0) g/dL
--- NOTE | 2021-01-11 13:49 | P.HPIM ---
History of Present Illness H&P Date: 01/11/21 Chief Complaint: Left lower quadrant abdominal pain. This is a history and physical on a 75-year-old white female with known history of hypertension and PAD who states yesterday sudden onset of left lower quadrant abdominal pain with bloody diarrhea. Evaluation in the emergency room did show significant systemic inflammatory response with diverticular disease and diverticulitis on the CT scan of the abdomen. The patient states that she still feels significant pain poor appetite. No nausea or vomiting recently. Low- grade fever is stated. She is essentially admitted for diverticulitis. Review of Systems Constitutional: Denies chills, Denies fever Eyes: denies blurred vision, denies pain Ears, nose, mouth and throat: Denies headache, Denies sore throat Cardiovascular: Denies chest pain, Denies shortness of breath Respiratory: Denies cough Gastrointestinal: Reports as per HPI, Reports abdominal pain Genitourinary: Denies dysuria, Denies hematuria Musculoskeletal: Denies myalgias Past Medical History Past Medical History: Coronary Artery Disease (CAD), Chest Pain / Angina, Hypertension Additional Past Medical History / Comment(s): extensive cardiac history, A-fib History of Any Multi-Drug Resistant Organisms: None Reported Past Surgical History: Adenoidectomy, Heart Catheterization With Stent, Orthopedic Surgery, Tonsillectomy Additional Past Surgical History / Comment(s): stents in lower extremities Past Anesthesia/Blood Transfusion Reactions: No Reported Reaction Date of Last Stent Placement:: 2008 Past Psychological History: No Psychological Hx Reported Smoking Status: Former smoker Past Alcohol Use History: Occasional Past Drug Use History: None Reported Medications and Allergies Home Medications Medication Instructions Recorded Confirmed Type RX: Amiodarone HCl [Pacerone] 400 mg PO DAILY 12/05/20 01/10/21 History RX: Cholecalciferol [Vitamin D3 25 mcg PO DAILY 12/05/20 01/10/21 History (25 Mcg = 1000 Iu)] RX: Cyanocobalamin (Vitamin B-12) 1,000 mcg PO DAILY 12/05/20 01/10/21 History [Vitamin B-12] RX: Diltiazem HCl [Diltiazem HCl 180 mg PO DAILY 12/05/20 01/10/21 History 24Hr ER (CD)] RX: HYDROcodone/APAP 10-325MG 1 tab PO Q6H PRN 12/05/20 01/10/21 History [[place] 10-325] RX: Pantoprazole Sodium [Protonix] 40 mg PO DAILY 12/05/20 01/10/21 History RX: Rivaroxaban [Xarelto] 20 mg PO W/SUPPER 12/05/20 01/10/21 History RX: Venlafaxine HCl ER [Effexor XR] 150 mg PO DAILY 12/05/20 01/10/21 History RX: Vit C/E/Zn/Coppr/Lutein/Zeaxan 1 cap PO DAILY 12/05/20 01/10/21 History [Preservision Areds 2 Softgel] Aspirin [Adult Low Dose Aspirin EC] 81 mg PO DAILY #90 tab 12/08/20 01/10/21 Rx RX: Atorvastatin [Lipitor] 80 mg PO HS #30 tab 12/08/20 01/10/21 Rx RX: Metoprolol Tartrate [Lopressor] 25 mg PO TID #90 tab 12/08/20 01/10/21 Rx RX: Nitroglycerin Sl Tabs 0.4 mg SUBLINGUAL Q5M PRN tab 12/08/20 01/10/21 Rx [Nitrostat] RX: Prasugrel [Effient] 10 mg PO DAILY #30 tab 12/08/20 01/10/21 Rx RX: lisinopriL [Zestril] 5 mg PO BID #60 tab 12/08/20 01/10/21 Rx Allergies Allergy/AdvReac Type Severity Reaction Status Date / Time diazepam [From Valium] AdvReac Hallucinati Verified 01/10/21 21:23 ons meclizine [From Antivert] AdvReac Anaphylaxis Verified 01/10/21 21:23 Physical Exam Vitals: Vital Signs Temp Pulse Resp BP Pulse Ox 01/11/21 07:00 18 96 01/11/21 06:00 18 96 01/11/21 02:26 97.0 F L 65 18 129/44 96 01/10/21 23:52 60 16 117/67 98 01/10/21 21:36 56 L 16 123/62 99 01/10/21 18:49 98.5 F 48 L 20 87/47 93 L Intake and Output 01/10/21 01/11/21 01/11/21 22:59 06:59 14:59 Other: Weight 101.605 kg - Constitutional General appearance: obese - EENT Eyes: no abnormal pupil - Neck Neck: no lymphadenopathy - Respiratory Respiratory: bilateral: CTA - Cardiovascular Rhythm: regular Heart sounds: normal: S1, S2 Abnormal Heart Sounds: no S3 Gallop - Gastrointestinal General gastrointestinal: soft, no tenderness - Integumentary Integumentary: normal - Neurologic Neurologic: CNII-XII intact Results CBC & Chem 7: 01/11/21 03:34 01/11/21 03:34 Labs: Abnormal Lab Results - Last 24 Hours (Table) 01/10/21 01/10/21 01/10/21 Range/Units 20:01 20:01 21:08 WBC 21.5 H (3.8-10.6) k/uL RDW 15.6 H (11.5-15.5) % Neutrophils # 18.7 H (1.3-7.7) k/uL PT (9.0-12.0) sec INR (<1.2) Sodium 136 L (137-145) mmol/L BUN 37 H (7-17) mg/dL Creatinine 1.53 H (0.52-1.04) mg/dL Glucose 125 H (74-99) mg/dL Total Protein (6.3-8.2) g/dL Albumin (3.5-5.0) g/dL Stool Occult Blood Positive H (Negative) 01/10/21 01/11/21 01/11/21 Range/Units 21:08 03:34 03:34 WBC 13.9 H (3.8-10.6) k/uL RDW (11.5-15.5) % Neutrophils # 10.3 H (1.3-7.7) k/uL PT 12.1 H (9.0-12.0) sec INR 1.2 H (<1.2) Sodium (137-145) mmol/L BUN 33 H (7-17) mg/dL Creatinine 1.40 H (0.52-1.04) mg/dL Glucose 105 H (74-99) mg/dL Total Protein 5.6 L (6.3-8.2) g/dL Albumin 3.0 L (3.5-5.0) g/dL Stool Occult Blood (Negative) Assessment and Plan (1) Diverticulitis Current Visit: Yes Status: Acute Code(s): K57.92 - DVTRCLI OF INTEST, PART UNSP, W/O PERF OR ABSCESS W/O BLEED SNOMED Code(s): 911875632 (2) Hypertension Current Visit: No Status: Acute Code(s): I10 - ESSENTIAL (PRIMARY) HYPERTENSION SNOMED Code(s): 98853705 (3) PAD (peripheral artery disease) Current Visit: No Status: Acute Code(s): I73.9 - PERIPHERAL VASCULAR DISEASE, UNSPECIFIED SNOMED Code(s): 667756887 Plan: Continue empiric antibiotic treatment for diverticulitis. If after surgical evaluation as necessary. Check CBC and CMP in the a.m. She is otherwise a full code. Reconcile home medications when tolerating by mouth.
[2021-01-11] MEDS ORDERED: NITROGLYCERIN SL TABS 0.4 MG TAB SUBLINGUAL PRN (13:57)
[2021-01-11] MEDS ORDERED: HYDROcodone/APAP 10-325MG 1 EACH TAB PO PRN (13:57)
[2021-01-11] MEDS: AMIODARONE 200 MG TAB PO SCH (14:25)
[2021-01-11] MEDS: ASPIRIN 81 MG PO SCH (14:25)
[2021-01-11] MEDS: METOPROLOL TARTRATE 25 MG TAB PO SCH ×2 (14:25→20:39)
[2021-01-11] MEDS: lisinopriL 5 MG TAB PO SCH ×2 (14:26→20:37)
[2021-01-11] MEDS: RIVAROXABAN 20 MG TAB PO SCH (18:26)
[2021-01-11] MEDS: ATORVASTATIN 80 MG TAB PO SCH (20:39)
[2021-01-12] MEDS: SODIUM CHLORIDE 0.9% 1,000 ML IV SCH ×3 (05:54→23:14)
[2021-01-12 06:44] LABS: Basophils % (A) 0 %; Eosinophils # (A) 0.2 k/uL (0-0.7); Eosinophils % (A) 2 %; HCT 38.5 % (34.0-46.0); HGB 12.1 gm/dL (11.4-16.0); Lymphocytes # (A) 2.1 k/uL (1.0-4.8); Lymphocytes % (A) 22 %; MCH 28.8 pg (25.0-35.0); MCHC 31.4 g/dL (31.0-37.0); MCV 91.8 fL (80.0-100.0); Mean Platelet Volume 10.5; Monocytes # (A) 0.4 k/uL (0-1.0); Monocytes % (A) 4 %; Neutrophils # (A) 6.7 k/uL (1.3-7.7); Neutrophils % (A) 71 %; Platelet Count 205 k/uL (150-450); RDW 15.7 % (11.5-15.5); WBC 9.4 k/uL (3.8-10.6)
[2021-01-12 06:52] LABS: African American GFR (CKD) 79 (>60 ml/min/1.73 sqM); Anion Gap 4 mmol/L; Blood Urea Nitrogen 15 mg/dL (7-17); Calcium 8.8 mg/dL (8.4-10.2); Carbon Dioxide 25 mmol/L (22-30); Chloride 113 mmol/L (98-107); Glucose 91 mg/dL (74-99); Non-African American GFR(CKD) 68 (>60 ml/min/1.73 sqM); Potassium 4.5 mmol/L (3.5-5.1); Sodium 142 mmol/L (137-145); Total Protein 5.7 g/dL (6.3-8.2)
[2021-01-12 06:53] LABS: ALT 14 U/L (4-34); AST 21 U/L (14-36); Albumin/Globulin Ratio 1.1; Alkaline Phosphatase 70 U/L (38-126); Globulin 2.7 g/dL; Total Bilirubin 0.4 mg/dL (0.2-1.3)
[2021-01-12] MEDS: CHOLECALCIFEROL 25 MCG (1000 IU) TABLET PO SCH (09:03)
[2021-01-12] MEDS: PANTOPRAZOLE 40 MG TABLET PO SCH (09:03)
[2021-01-12] MEDS: AMPICILLIN-SULBACTAM 1.5 GM in SODIUM CHLORIDE 0.9% 50 ML IVPB SCH ×3 (09:03→23:14)
[2021-01-12] MEDS: ASPIRIN 81 MG PO SCH (09:03)
[2021-01-12] MEDS: AMIODARONE 200 MG TAB PO SCH (09:03)
[2021-01-12] MEDS: lisinopriL 5 MG TAB PO SCH ×2 (09:04→20:26)
[2021-01-12] MEDS: VENLAFAXINE HCL ER 150 MG CAP PO SCH (09:04)
[2021-01-12] MEDS: PRASUGREL 10 MG TAB PO SCH (09:04)
[2021-01-12] MEDS: METOPROLOL TARTRATE 25 MG TAB PO SCH ×3 (09:04→21:03)
--- NOTE | 2021-01-12 12:29 | CDI ---
Documentation Clarification Form Date: 01/12/2021 12:23:14 PM From: Ary Linton [facility], CCDS Admit Date: 01/10/2021 11:06:00 PM Patient Name: Alyssa Sharpe Visit Number: [id number] Discharge Date: ATTENTION: The Clinical Documentation Specialists (CDI) and [facility] Coding Staff appreciate your assistance in clarifying documentation. Please respond to the clarification below the line at the bottom and electronically sign. The CDI & [facility] Coding staff will review the response and follow-up if needed. Please note: Queries are made part of the Legal Health Record. If you have any questions, please contact the author of this message via ITS. Dr. Lewis Mendoza: Atrial Fibrillation is documented in the 01/11 History & Physical and the 01/11 Surgery Consult in the patient's Medical History. Additional clarification regarding the type of atrial fibrillation is requested. History/Risk Factors per the 01/11 H/P: CAD with coronary stents, Angina, Atrial Fibrillation, Diverticular Disease, Hypertension. Clinical Indicators: Presented to the ED on 01/10 with Diarrhea and bloody stool. ED Clinical Impression: Diverticulitis 01/10 VS: T 98.5, P 48 - 56 - 60; R 20, BP 87/47 - 123/62 - 117/67; PO 93 RA - 98 RA, BMI: 42.3 01/10 EKG: R 54 Sinus bradycardia Treatment: IV Dilaudid, IV Protonix, IV fl rate 130, IV fl bolus 500 mls @ 999 mls/hr q31M, IV Ampicillin. Xarelto & Effexor held. Home Rx: Xarelto, Nitro sl, Horatio, Lipitor, Effexor, Protonix, Cardizem, Lopressor, Low Dose Aspirin, Pacerone Please clarify the type of atrial fibrillation, if known: [ x ] Chronic [ ] Permanent [ ] Paroxysmal [ ] Persistent [ ] Other, please specify [ ] Unable to determine (Template Last Revised: August 2020) MTDD
--- NOTE | 2021-01-12 14:36 | P.PN ---
Subjective Progress Note Date: 01/12/21 CHIEF COMPLAINT: Left lower quadrant abdominal pain HISTORY OF PRESENT ILLNESS: Surgical service is following regards to patient's left lower quadrant abdominal pain due to diverticulitis. Patient reports a decrease in her abdominal pain. She is currently rating her pain about a 2 out of 10. She was admitted the pain was 11 out of 10. She denies any nausea or vomiting. She did have a small amount of blood per rectum this morning when she passed gas. She's afebrile. Her white count has normalized from 13.9-9.4. Hemoglobin has gone from 11.4-12.1. Medicine service has restarted patient's Xarelto and Effient. PHYSICAL EXAM: VITAL SIGNS: Reviewed. GENERAL: Well-developed in no acute distress. HEENT: No sclera icterus. Extraocular movements grossly intact. Moist buccal mucosa. Head is atraumatic, normocephalic. ABDOMEN: Soft. Nondistended. Mild tenderness to palpation left lower quadrant NEUROLOGIC: Alert and oriented. Cranial nerves II through XII grossly intact. ASSESSMENT: 1. Acute diverticulitis 2. Rectal bleeding likely due to diverticular bleed secondary to the dive rticulitis PLAN: -Continue conservative management -Advance diet to full liquids -Continue antibiotics -Continue IV fluids -Repeat CBC in a.m. -Recommend outpatient colonoscopy in 6-8 weeks Physician Answerer note has been reviewed by physician. Signing provider agrees with the documented findings, assessment, and plan of care. Objective - Vital Signs Vital signs: Vital Signs Temp 98.2 F 01/12/21 11:58 Pulse 97 01/12/21 11:58 Resp 20 01/12/21 11:58 BP 130/73 01/12/21 11:58 Pulse Ox 96 01/12/21 11:58 Intake & Output 01/11/21 01/12/21 01/12/21 18:59 06:59 18:59 Intake Total 100 2500 60 Balance 100 2500 60 Weight 101.605 kg Intake: Intake, IV Titration 100 2000 Amount Ampicillin-Sulbactam 1.5 100 500 gm In Sodium Chloride 0.9 % 50 ml @ 100 mls/hr IVPB Q8HR [facility] Rx#:[id number] Sodium Chloride 0.9% 1, 1500 000 ml @ 130 mls/hr IV . Q7H42M [facility] Rx#:[id number] Oral 500 60 Other: Voiding Method Toilet # Voids 3 - Labs CBC & Chem 7: 01/12/21 05:59 01/12/21 05:59 Labs: Abnormal Lab Results - Last 24 Hours (Table) 01/12/21 01/12/21 Range/Units 05:59 05:59 RDW 15.7 H (11.5-15.5) % Chloride 113 H (98-107) mmol/L Total Protein 5.7 L (6.3-8.2) g/dL Albumin 3.0 L (3.5-5.0) g/dL Microbiology - Last 24 Hours (Table) 01/10/21 23:44 Blood Culture - Preliminary Blood No Growth after 24 hours 01/10/21 23:25 Blood Culture - Preliminary Blood No Growth after 24 hours
[2021-01-12] MEDS: RIVAROXABAN 20 MG TAB PO SCH (17:30)
[2021-01-12] MEDS: ATORVASTATIN 80 MG TAB PO SCH (20:26)
--- NOTE | 2021-01-12 23:02 | P.PN ---
Subjective Progress Note Date: 01/12/21 Principal diagnosis: This is a continue progress in a patient admitted for left lower quadrant pain. Acute diverticular disease is noted. Appreciate surgical input. The patient has residual pain. She wishes to go home but I suspect she would benefit from continued antibiotic treatment Feels much better. No sleep issues. No sniffing nausea, vomiting or diarrhea. Tolerating liquids. Objective - Vital Signs Vital signs: Vital Signs Temp 98.2 F 01/12/21 19:35 Pulse 97 01/12/21 19:45 Resp 20 01/12/21 19:45 BP 114/75 01/12/21 19:35 Pulse Ox 96 01/12/21 19:35 Intake & Output 01/12/21 01/12/21 01/13/21 06:59 18:59 06:59 Intake Total 2500 1720 Balance 2500 1720 Intake: Intake, IV Titration 1999 1660 Amount Ampicillin-Sulbactam 1.5 500 100 gm In Sodium Chloride 0.9 % 50 ml @ 100 mls/hr IVPB Q8HR [facility] Rx#:[id number] Sodium Chloride 0.9% 1, 1500 1560 000 ml @ 130 mls/hr IV . Q7H42M [facility] Rx#:[id number] Oral 500 60 Other: Voiding Method Toilet Toilet # Voids 3 10 - Constitutional General appearance: Present: obese - EENT Eyes: Absent: abnormal pupil - Neck Neck: Absent: lymphadenopathy - Respiratory Respiratory: bilateral: CTA - Gastrointestinal General gastrointestinal: Present: soft, tenderness Localized gastrointestinal: tender: LLQ - Psychiatric Psychiatric: Present: A&O x's 3 - Labs CBC & Chem 7: 01/12/21 05:59 01/12/21 05:59 Labs: Abnormal Lab Results - Last 24 Hours (Table) 01/12/21 01/12/21 Range/Units 05:59 05:59 RDW 15.7 H (11.5-15.5) % Chloride 113 H (98-107) mmol/L Total Protein 5.7 L (6.3-8.2) g/dL Albumin 3.0 L (3.5-5.0) g/dL Microbiology - Last 24 Hours (Table) 01/10/21 23:44 Blood Culture - Preliminary Blood No Growth after 24 hours 01/10/21 23:25 Blood Culture - Preliminary Blood No Growth after 24 hours Assessment and Plan (1) Diverticulitis Current Visit: Yes Status: Acute Code(s): K57.92 - DVTRCLI OF INTEST, PART UNSP, W/O PERF OR ABSCESS W/O BLEED SNOMED Code(s): 336992719 (2) Hypertension Current Visit: No Status: Acute Code(s): I10 - ESSENTIAL (PRIMARY) HYPERTENSION SNOMED Code(s): 25871014 (3) PAD (peripheral artery disease) Current Visit: No Status: Acute Code(s): I73.9 - PERIPHERAL VASCULAR DISEASE, UNSPECIFIED SNOMED Code(s): 363822647 Plan: Continue empiric antibiotic treatment for diverticulitis. If after surgical evaluation as necessary. Check CBC and CMP in the a.m. Anticipate discharge in the next 24
[2021-01-13] MEDS: SODIUM CHLORIDE 0.9% 1,000 ML IV SCH (05:09)
[2021-01-13] MEDS: AMPICILLIN-SULBACTAM 1.5 GM in SODIUM CHLORIDE 0.9% 50 ML IVPB SCH (08:17)
[2021-01-13] MEDS: PANTOPRAZOLE 40 MG TABLET PO SCH (08:18)
[2021-01-13] MEDS: VENLAFAXINE HCL ER 150 MG CAP PO SCH (08:18)
[2021-01-13] MEDS: lisinopriL 5 MG TAB PO SCH (08:18)
[2021-01-13] MEDS: METOPROLOL TARTRATE 25 MG TAB PO SCH (08:18)
[2021-01-13] MEDS: CHOLECALCIFEROL 25 MCG (1000 IU) TABLET PO SCH (08:18)
[2021-01-13] MEDS: ASPIRIN 81 MG PO SCH (08:18)
[2021-01-13] MEDS: PRASUGREL 10 MG TAB PO SCH (08:18)
[2021-01-13] MEDS: AMIODARONE 200 MG TAB PO SCH (08:18)
[2021-01-13 12:36] LABS: Basophils % (A) 0 %; Eosinophils # (A) 0.1 k/uL (0-0.7); Eosinophils % (A) 1 %; HCT 38.1 % (34.0-46.0); HGB 11.9 gm/dL (11.4-16.0); Lymphocytes # (A) 2.2 k/uL (1.0-4.8); Lymphocytes % (A) 22 %; MCH 28.7 pg (25.0-35.0); MCHC 31.2 g/dL (31.0-37.0); MCV 91.9 fL (80.0-100.0); Mean Platelet Volume 9.7; Monocytes # (A) 0.4 k/uL (0-1.0); Monocytes % (A) 4 %; Neutrophils % (A) 71 %; Platelet Count 221 k/uL (150-450); RBC 4.14 m/uL (3.80-5.40); RDW 15.5 % (11.5-15.5); WBC 9.8 k/uL (3.8-10.6)
[2021-01-13 13:07] VITALS: BP 161/75; PULSE 63; RESP 17; TEMP 98.5
--- NOTE | 2021-01-13 14:01 | P.DS ---
Providers Date of admission: 01/10/21 23:06 Attending physician: Lewis Mendoza Consults: 01/10/21 23:08 Consult Physician Urgent Consulting Provider: Chano Richardson Consult Reason/Comments: diverticulitis Do you want consulting provider notified?: Yes Primary care physician: Lewis Mendoza - Discharge Diagnosis(es) (1) Diverticulitis Current Visit: Yes Status: Acute (2) Hypertension Current Visit: No Status: Acute (3) PAD (peripheral artery disease) Current Visit: No Status: Acute Plan - Discharge Summary New Discharge Prescriptions: New Amoxicillin/Potassium Clav [Augmentin 500-125 Tablet] 1 tab PO Q12HR 7 Days #14 tab Continue Venlafaxine HCl ER [Effexor XR] 150 mg PO DAILY Rivaroxaban [Xarelto] 20 mg PO W/SUPPER HYDROcodone/APAP 10-325MG [Protection 10-325] 1 tab PO Q6H PRN PRN Reason: Pain Prasugrel [Effient] 10 mg PO DAILY #30 tab Atorvastatin [Lipitor] 80 mg PO HS #30 tab Metoprolol Tartrate [Lopressor] 25 mg PO TID #90 tab lisinopriL [Zestril] 5 mg PO BID #60 tab Vit C/E/Zn/Coppr/Lutein/Zeaxan [Preservision Areds 2 Softgel] 1 cap PO DAILY Cholecalciferol [Vitamin D3 (25 Mcg = 1000 Iu)] 25 mcg PO DAILY Pantoprazole Sodium [Protonix] 40 mg PO DAILY Diltiazem HCl [Diltiazem HCl 24Hr ER (CD)] 180 mg PO DAILY Amiodarone HCl [Pacerone] 400 mg PO DAILY Cyanocobalamin (Vitamin B-12) [Vitamin B-12] 1,000 mcg PO DAILY Aspirin [Adult Low Dose Aspirin EC] 81 mg PO DAILY #90 tab Nitroglycerin Sl Tabs [Nitrostat] 0.4 mg SUBLINGUAL Q5M PRN tab PRN Reason: Chest Pain Discharge Medication List Amiodarone HCl [Pacerone] 400 mg PO DAILY 12/05/20 [History] Cholecalciferol [Vitamin D3 (25 Mcg = 1000 Iu)] 25 mcg PO DAILY 12/05/20 [History] Cyanocobalamin (Vitamin B-12) [Vitamin B-12] 1,000 mcg PO DAILY 12/05/20 [History] Diltiazem HCl [Diltiazem HCl 24Hr ER (CD)] 180 mg PO DAILY 12/05/20 [History] HYDROcodone/APAP 10-325MG [Protection 10-325] 1 tab PO Q6H PRN 12/05/20 [History] Pantoprazole Sodium [Protonix] 40 mg PO DAILY 12/05/20 [History] Rivaroxaban [Xarelto] 20 mg PO W/SUPPER 12/05/20 [History] Venlafaxine HCl ER [Effexor XR] 150 mg PO DAILY 12/05/20 [History] Vit C/E/Zn/Coppr/Lutein/Zeaxan [Preservision Areds 2 Softgel] 1 cap PO DAILY 12/05/20 [History] Aspirin [Adult Low Dose Aspirin EC] 81 mg PO DAILY #90 tab 12/08/20 [Rx] Atorvastatin [Lipitor] 80 mg PO HS #30 tab 12/08/20 [Rx] Metoprolol Tartrate [Lopressor] 25 mg PO TID #90 tab 12/08/20 [Rx] Nitroglycerin Sl Tabs [Nitrostat] 0.4 mg SUBLINGUAL Q5M PRN tab 12/08/20 [Rx] Prasugrel [Effient] 10 mg PO DAILY #30 tab 12/08/20 [Rx] lisinopriL [Zestril] 5 mg PO BID #60 tab 12/08/20 [Rx] Amoxicillin/Potassium Clav [Augmentin 500-125 Tablet] 1 tab PO Q12HR 7 Days #14 tab 01/13/21 [Rx] Follow up Appointment(s)/Referral(s): Lewis Mendoza MD [Primary Care Provider] - 1-2 days [facility], [NON-STAFF] - 1 Week
--- NOTE | 2021-01-13 14:23 | P.PN ---
Subjective Progress Note Date: 01/13/21 CHIEF COMPLAINT: Left lower quadrant abdominal pain HISTORY OF PRESENT ILLNESS: Surgical service is following regards to patient's diverticulitis. She reports that her abdominal pain has resolved. She is not requiring any pain medication. She denies any nausea or vomiting. She is tolerating full liquid diet. She's afebrile. Heart rate she's been tachycardic heart rate up to 125. She does have a known history of atrial fibrillation. PHYSICAL EXAM: VITAL SIGNS: Reviewed. GENERAL: Well-developed in no acute distress. HEENT: No sclera icterus. Extraocular movements grossly intact. Moist buccal mucosa. Head is atraumatic, normocephalic. ABDOMEN: Soft. Nondistended nontender NEUROLOGIC: Alert and oriented. Cranial nerves II through XII grossly intact. ASSESSMENT: 1. Acute diverticulitis improving with conservative management 2. Rectal bleeding likely due to diverticular bleed secondary to the diverticulitis. Resolved PLAN: -Patient can be discharge from surgical standpoint -Continue antibiotics after discharge -Recommend outpatient colonoscopy in 6-8 weeks Physician Archery Equipment Repairer note has been reviewed by physician. Signing provider agrees with the documented findings, assessment, and plan of care. Objective - Vital Signs Vital signs: Vital Signs Temp 98.1 F 01/13/21 04:35 Pulse 125 H 01/13/21 09:07 Resp 20 01/13/21 04:35 BP 158/75 01/13/21 09:07 Pulse Ox 94 L 01/13/21 04:35 Intake & Output 01/12/21 01/13/21 01/13/21 18:59 06:59 18:59 Intake Total 1720 2050 Balance 1720 2050 Intake: Intake, IV Titration 1660 1550 Amount Ampicillin-Sulbactam 1.5 100 50 gm In Sodium Chloride 0.9 % 50 ml @ 100 mls/hr IVPB Q8HR MISSY Rx#:[id number] Sodium Chloride 0.9% 1, 1560 1500 000 ml @ 130 mls/hr IV . Q7H42M MISSY Rx#:[id number] Oral 60 500 Other: Voiding Method Toilet # Voids 10 3 - Labs CBC & Chem 7: 01/13/21 12:20 01/12/21 05:59 Labs: Microbiology - Last 24 Hours (Table) 09/27/21 23:44 Blood Culture - Preliminary Blood No Growth after 48 hours 01/10/21 23:25 Blood Culture - Preliminary Blood No Growth after 48 hours
== END 2021-01-13 15:33 | disposition home or self-care (01) | DRG 378 ==
LOC: EC 17:43 → 5NMEDONC 23:06
PROVIDERS: ADMIT Family Medicine; ATTEND Family Medicine
DX: K57.93 Diverticulitis of intestine, part unspecified, without perforation or abscess with bleeding (principal); I48.20 Chronic atrial fibrillation, unspecified; Z68.41 Body mass index [BMI] 40.0-44.9, adult; K57.31 Diverticulosis of large intestine without perforation or abscess with bleeding; I10 Essential (primary) hypertension; I25.10 Atherosclerotic heart disease of native coronary artery without angina pectoris; E66.9 Obesity, unspecified; Z20.822 Contact with and (suspected) exposure to COVID-19; I73.9 Peripheral vascular disease, unspecified; Z79.01 Long term (current) use of anticoagulants; Z79.02 Long term (current) use of antithrombotics/antiplatelets; Z79.82 Long term (current) use of aspirin; Z79.899 Other long term (current) drug therapy; Z87.891 Personal history of nicotine dependence; Z95.5 Presence of coronary angioplasty implant and graft; Z88.8 Allergy status to other drugs, medicaments and biological substances; Z95.828 Presence of other vascular implants and grafts; Z88.5 Allergy status to narcotic agent
CPT/HCPCS: 36415; 71045; 74177; 80053; 82272; 84484; 85025; 85610; 85730; 87040; 87635; 93005; 96361; 96374; 96375; 99285

== ENCOUNTER 2021-07-09 14:14 | Emergency (ER) | payer MEDICARE, BC ==
[2021-07-09 14:20] VITALS: RESP 18; TEMP 96.9
[2021-07-09 15:51] LABS: Basophils # (A) 0.1 k/uL (0-0.2); Basophils % (A) 1 %; Eosinophils # (A) 0.2 k/uL (0-0.7); Eosinophils % (A) 3 %; HCT 40.7 % (34.0-46.0); HGB 12.5 gm/dL (11.4-16.0); Lymphocytes # (A) 2.6 k/uL (1.0-4.8); Lymphocytes % (A) 29 %; MCH 26.8 pg (25.0-35.0); MCHC 30.6 g/dL (31.0-37.0); MCV 87.7 fL (80.0-100.0); Mean Platelet Volume 8.8; Monocytes # (A) 0.6 k/uL (0-1.0); Monocytes % (A) 7 %; Neutrophils # (A) 5.5 k/uL (1.3-7.7); Neutrophils % (A) 60 %; Platelet Count 299 k/uL (150-450); RBC 4.64 m/uL (3.80-5.40); RDW 15.2 % (11.5-15.5); WBC 9.2 k/uL (3.8-10.6)
[2021-07-09 16:02] LABS: Calcium 8.8 mg/dL (8.4-10.2); Magnesium 2.3 mg/dL (1.6-2.3); Potassium 4.6 mmol/L (3.5-5.1); Total Bilirubin 0.6 mg/dL (0.2-1.3); Total Protein 7.1 g/dL (6.3-8.2)
[2021-07-09 16:06] LABS: Partial Thromboplastin Time 25.3 sec (22.0-30.0); Prothrombin Time 10.7 sec (9.0-12.0)
--- NOTE | 2021-07-09 17:28 | ED ---
GI Bleed HPI - General Chief complaint: GI Bleed Stated complaint: GI Bleed Source: patient, family Mode of arrival: ambulatory Limitations: no limitations - History of Present Illness Initial comments: 75 year old female past medical history of coronary artery disease, hypertens ion, A. fib on xarelto presents to the emergency department after she had a bowel movement with bright red blood earlier today. States that she had brown formed stool however when she wiped she saw bright red blood. Denies any abdominal pain or rectal pain. No history of peptic ulcer disease. Does have a history of hemorrhoids. No fevers, chills, nausea, vomiting, hematemesis. Reports to one episode of previous when she had this. Patient has taken her anticoagulation as directed. Patient did go to the hospital however reports that her made her. No other alleviating, Perceptin or modifying factors - Related Data Home Medications Medication Instructions Recorded Confirmed Cholecalciferol [Vitamin D3 (25 25 mcg PO DAILY 12/05/20 07/09/21 Mcg = 1000 Iu)] Cyanocobalamin (Vitamin B-12) 1,000 mcg PO DAILY 12/05/20 07/09/21 [Vitamin B-12] Diltiazem HCl [Diltiazem HCl 24Hr 180 mg PO DAILY 12/05/20 07/09/21 ER (CD)] Pantoprazole Sodium [Protonix] 40 mg PO DAILY 12/05/20 07/09/21 Rivaroxaban [Xarelto] 20 mg PO W/SUPPER 12/05/20 07/09/21 Venlafaxine HCl ER [Effexor XR] 150 mg PO DAILY 12/05/20 07/09/21 Vit C/E/Zn/Coppr/Lutein/Zeaxan 1 cap PO DAILY 12/05/20 07/09/21 [Preservision Areds 2 Softgel] Amiodarone [Cordarone] 200 mg PO BID 07/09/21 07/09/21 Losartan [Cozaar] 25 mg PO DAILY 07/09/21 07/09/21 Metoprolol Tartrate [Lopressor] 25 mg PO BID 07/09/21 07/09/21 Montelukast [Singulair] 10 mg PO HS 07/09/21 07/09/21 amLODIPine [Norvasc] 5 mg PO DAILY 07/09/21 07/09/21 Previous Rx's Medication Instructions Recorded Aspirin [Adult Low Dose Aspirin EC] 81 mg PO DAILY #90 tab 12/08/20 Nitroglycerin Sl Tabs [Nitrostat] 0.4 mg SUBLINGUAL Q5M PRN tab 12/08/20 Prasugrel [Effient] 10 mg PO DAILY #30 tab 12/08/20 Amoxicillin/Potassium Clav 1 tab PO Q12HR #20 tab 07/09/21 [Augmentin 875-125 Tablet] Allergies Allergy/AdvReac Type Severity Reaction Status Date / Time diazepam [From Valium] AdvReac Hallucinati Verified 07/09/21 17:21 ons meclizine [From Antivert] AdvReac Anaphylaxis Verified 07/09/21 17:21 Review of Systems ROS Statement: Those systems with pertinent positive or pertinent negative responses have been documented in the HPI. ROS Other: All systems not noted in ROS Statement are negative. Past Medical History Past Medical History: Coronary Artery Disease (CAD), Chest Pain / Angina, Hypertension Additional Past Medical History / Comment(s): extensive cardiac history, A-fib History of Any Multi-Drug Resistant Organisms: None Reported Past Surgical History: Adenoidectomy, Heart Catheterization With Stent, Orthopedic Surgery, Tonsillectomy Additional Past Surgical History / Comment(s): stents in lower extremities Past Anesthesia/Blood Transfusion Reactions: No Reported Reaction Date of Last Stent Placement:: 2008 Past Psychological History: No Psychological Hx Reported Smoking Status: Former smoker - Past Family History Mother Family Medical History: Chest Pain / Angina, Deep Vein Thrombosis (DVT), Myocardial Infarction ([place]), Pulmonary Embolus Father Family Medical History: CVA/TIA General Exam Limitations: no limitations Course Vital Signs 07/09/21 07/09/21 14:17 17:49 Temperature 96.9 F L Pulse Rate 59 L 57 L Respiratory 18 18 Rate Blood Pressure 131/56 138/51 O2 Sat by Pulse 97 98 Oximetry Medical Decision Making - Medical Decision Making Upon arrival patient is placed into room 9. Thorough history and physical exam was performed. Rectal exam is performed and demonstrates brown stool which does come back as occult positive. Laboratory studies reviewed. Hemoglobin 12.5. Coreg physician studies within normal limits. I did discuss diagnosis, differential and treatment options. Patient is in no pain at this time. Patient requesting discharge home. Recommend that she follow up with her primary care doctor in 2-4 days for reevaluation. The patient has any new worsening symptoms or increasing blood per rectum to return to the emergency department. I did recommend that the patient follow up with surgery or GI for colonoscopy. Patient understood and was discharged home in stable condition - Lab Data Result diagrams: 07/09/21 15:40 07/09/21 15:40 Lab Results 07/09/21 07/09/21 07/09/21 Range/Units 15:40 15:40 15:40 WBC 9.2 (3.8-10.6) k/uL RBC 4.64 (3.80-5.40) m/uL Hgb 12.5 (11.4-16.0) gm/dL Hct 40.7 (34.0-46.0) % MCV 87.7 (80.0-100.0) fL MCH 26.8 (25.0-35.0) pg MCHC 30.6 L (31.0-37.0) g/dL RDW 15.2 (11.5-15.5) % Plt Count 299 (150-450) k/uL MPV 8.8 Neutrophils % 60 % Lymphocytes % 29 % Monocytes % 7 % Eosinophils % 3 % Basophils % 1 % Neutrophils # 5.5 (1.3-7.7) k/uL Lymphocytes # 2.6 (1.0-4.8) k/uL Monocytes # 0.6 (0-1.0) k/uL Eosinophils # 0.2 (0-0.7) k/uL Basophils # 0.1 (0-0.2) k/uL PT 10.7 (9.0-12.0) sec INR 1.0 (<1.2) APTT 25.3 (22.0-30.0) sec Sodium (137-145) mmol/L Potassium (3.5-5.1) mmol/L Chloride (98-107) mmol/L Carbon Dioxide (22-30) mmol/L Anion Gap mmol/L BUN (7-17) mg/dL Creatinine (0.52-1.04) mg/dL Est GFR (CKD-EPI)AfAm (>60 ml/min/1.73 sqM) Est GFR (CKD-EPI)NonAf (>60 ml/min/1.73 sqM) Glucose (74-99) mg/dL Calcium (8.4-10.2) mg/dL Magnesium (1.6-2.3) mg/dL Total Bilirubin (0.2-1.3) mg/dL AST (14-36) U/L ALT (4-34) U/L Alkaline Phosphatase (38-126) U/L Troponin I (0.000-0.034) ng/mL Total Protein (6.3-8.2) g/dL Albumin (3.5-5.0) g/dL Stool Occult Blood Positive H (Negative) 07/09/21 07/09/21 Range/Units 15:40 15:40 WBC (3.8-10.6) k/uL RBC (3.80-5.40) m/uL Hgb (11.4-16.0) gm/dL Hct (34.0-46.0) % MCV (80.0-100.0) fL MCH (25.0-35.0) pg MCHC (31.0-37.0) g/dL RDW (11.5-15.5) % Plt Count (150-450) k/uL MPV Neutrophils % % Lymphocytes % % Monocytes % % Eosinophils % % Basophils % % Neutrophils # (1.3-7.7) k/uL Lymphocytes # (1.0-4.8) k/uL Monocytes # (0-1.0) k/uL Eosinophils # (0-0.7) k/uL Basophils # (0-0.2) k/uL PT (9.0-12.0) sec INR (<1.2) APTT (22.0-30.0) sec Sodium 137 (137-145) mmol/L Potassium 4.6 (3.5-5.1) mmol/L Chloride 107 (98-107) mmol/L Carbon Dioxide 23 (22-30) mmol/L Anion Gap 7 mmol/L BUN 16 (7-17) mg/dL Creatinine 0.98 (0.52-1.04) mg/dL Est GFR (CKD-EPI)AfAm 65 (>60 ml/min/1.73 sqM) Est GFR (CKD-EPI)NonAf 57 (>60 ml/min/1.73 sqM) Glucose 76 (74-99) mg/dL Calcium 8.8 (8.4-10.2) mg/dL Magnesium 2.3 (1.6-2.3) mg/dL Total Bilirubin 0.6 (0.2-1.3) mg/dL AST 21 (14-36) U/L ALT 11 (4-34) U/L Alkaline Phosphatase 71 (38-126) U/L Troponin I <0.012 (0.000-0.034) ng/mL Total Protein 7.1 (6.3-8.2) g/dL Albumin 4.0 (3.5-5.0) g/dL Stool Occult Blood (Negative) Disposition Clinical Impression: Hematochezia Disposition: HOME SELF-CARE Condition: Stable Instructions (If sedation given, give patient instructions): Gastrointestinal Bleeding (ED) Additional Instructions: If you develop any pain, fevers or worsening bleeding I recommend you come back to the hospital. Follow up with your doctor and I recommend that you have a colonoscopy in the near future Prescriptions: Amoxicillin/Potassium Clav [Augmentin 875-125 Tablet] 1 tab PO Q12HR #20 tab Is patient prescribed a controlled substance at d/c from ED?: No Referrals: Lewis Mendoza MD [Primary Care Provider] - 1-2 days Time of Disposition: 17:28
[2021-07-09 17:50] VITALS: BP 138/51; PULSE 57
== END 2021-07-09 17:50 | disposition home or self-care (01) ==
LOC: EC 14:14
DX: K92.1 Melena (principal); I25.10 Atherosclerotic heart disease of native coronary artery without angina pectoris; I10 Essential (primary) hypertension; Z87.891 Personal history of nicotine dependence; Z79.82 Long term (current) use of aspirin
CPT/HCPCS: 36415; 80053; 82272; 83735; 84484; 85025; 85610; 85730; 99284

== ENCOUNTER 2021-08-04 06:19 | Day surgery (SDC) | payer MEDICARE, BC ==
[2021-08-02 15:24] VITALS: BMI 42.3
[~2021-08-04 06:19] MED LIST: LACTATED RINGERS 1,000 ML IV SCH; SODIUM CHLORIDE 0.9% 1,000 ML IV SCH
[2021-08-04] MEDS ORDERED: SODIUM CHLORIDE 0.9% 500 ML 500 ML IV ONE (06:42)
[2021-08-04 06:52] VITALS: TEMP 98.2
[2021-08-04] MEDS ORDERED: PROPOFOL 10 MG/ML 20 ML VIAL IV ONE (07:26)
[2021-08-04] MEDS ORDERED: BENZOCAINE SPRAY 1 CAN TOPICAL ONE (07:28)
[2021-08-04 08:02] VITALS: RESP 16
[2021-08-04 09:30] VITALS: BP 95/46; PULSE 59
--- NOTE | 2021-08-04 10:42 | ECHOT ---
TRANSESOPHAGEAL ECHOCARDIOGRAM PROCEDURE: Transesophageal echocardiogram. INDICATION: To rule out intracardiac thrombus prior to cardioversion in a patient with persistent atrial fibrillation. PROCEDURE NOTE: After obtaining informed consent, transesophageal echocardiogram was performed in left lateral position using an Omniplane probe. Local and IV sedation were obtained by the security assurance analyst. Patient tolerated the procedure well without any obvious immediate complications. Color Doppler, 2D and spectral analysis has been performed. FINDINGS: 1. There is no intracardiac thrombus within the left atrial appendage, left atrium, right atrium, right ventricle or left ventricle. 2. Left atrium appears mildly enlarged. 3. Right ventricle seen within normal limits. 4. Left ventricle appears mildly enlarged, shows diffuse global hypokinesis with mild LV dysfunction with an ejection fraction of 45%. 5. Mitral valve is anatomically normal. There is moderate central mitral regurgitation noted. 6. Tricuspid valve shows mild tricuspid regurgitation. 7. Aortic valve is a 3-leaflet valve. There is no evidence of aortic stenosis or regurgitation. 8. Interatrial septum: There is no evidence of [id number] shunt by color-flow Doppler or [id number]-el-[id number] shunt by agitated saline contrast study. 9. Aorta shows mild atherosclerotic changes and aortic root measures normally. CONCLUSIONS: 1. No intracardiac thrombus. 2. Mild LV dysfunction. 3. Moderate mitral regurgitation. PLAN: Patient will proceed with cardioversion. MMODL / IJN: [id number] /
--- NOTE | 2021-08-04 11:53 | LTR ---
August 04, 2021 To: Dr. Mendoza Re: Alyssa Sharpe (45) Dear Reji, I performed ANKITA and cardioversion on Alyssa Sharpe; a detailed report is enclosed for your records. In brief, the patient was successfully cardioverted with a single shock of 100 joules. Thank you for giving me the privilege of participating in the care of this pleasant lady. Sincerely, Kev Echeverria M.D. BRETT / [place]: [id number] /
--- NOTE | 2021-08-04 11:53 | PCN ---
PROCEDURE NOTE CARDIOVERSION NOTE: INDICATION: Persistent atrial fibrillation. PROCEDURE NOTE: After obtaining informed consent and making sure that the patient was adequately anticoagulated with Xarelto and ruling out intracardiac thrombus with a transesophageal echo, the patient underwent electrical cardioversion with 100 joules of synchronized DC current. Patient converted to sinus rhythm following a single shock and stayed in sinus rhythm. She will continue her current medications, including the amiodarone that she is on. MMODL / IJN: [id number] /
== END 2021-08-04 09:24 | disposition home or self-care (01) ==
LOC: CATHCVL 06:19
PROVIDERS: ATTEND Internal Medicine Cardiovascular Disease
DX: I08.1 Rheumatic disorders of both mitral and tricuspid valves (principal); I48.19 Other persistent atrial fibrillation; Z98.61 Coronary angioplasty status; E78.5 Hyperlipidemia, unspecified; I10 Essential (primary) hypertension; I73.9 Peripheral vascular disease, unspecified; Z87.891 Personal history of nicotine dependence; Z82.49 Family history of ischemic heart disease and other diseases of the circulatory system; K21.9 Gastro-esophageal reflux disease without esophagitis; I65.29 Occlusion and stenosis of unspecified carotid artery; Z79.01 Long term (current) use of anticoagulants; Z79.82 Long term (current) use of aspirin; Z79.899 Other long term (current) drug therapy; Z88.8 Allergy status to other drugs, medicaments and biological substances
CPT/HCPCS: 93312; 93320; 93325; 92960; J2704

== ENCOUNTER 2022-07-30 11:08 | Emergency (ER) | payer MEDICARE, BC ==
[2022-07-30 11:21] VITALS: TEMP 98
[2022-07-30] MEDS ORDERED: ASPIRIN 81 MG PO STA (11:49)
[2022-07-30] MEDS ORDERED: LORazepam 2 MG/ML INJ IV STA (11:49)
--- NOTE | 2022-07-30 11:53 | ED ---
General Adult HPI - General Chief complaint: Arrhythmia/Palpitations Stated complaint: Palpitations Time Seen by Provider: 07/30/22 11:39 Source: patient, RN notes reviewed Mode of arrival: wheelchair Limitations: no limitations - History of Present Illness Initial comments: Patient is a pleasant 76-year-old female presenting to the emergency department with concerns of palpitations. Onset of symptoms has been intermittent the last couple of days. Patient admits to having increased stress and anxiety recently. Patient did have some chest discomfort however that was 2 days ago, none since that time. That did improve with nitroglycerin. No dyspnea. No leg pain or leg swelling. Patient does feel her heart beat racing in her ear. - Related Data Home Medications Medication Instructions Recorded Confirmed Cholecalciferol [Vitamin D3 (25 25 mcg PO DAILY 12/05/20 08/04/21 Mcg = 1000 Iu)] Cyanocobalamin (Vitamin B-12) 1,000 mcg PO DAILY 12/05/20 08/04/21 [Vitamin B-12] Rivaroxaban [Xarelto] 20 mg PO W/SUPPER 12/05/20 08/04/21 Venlafaxine HCl ER [Effexor XR] 150 mg PO DAILY 12/05/20 08/04/21 dilTIAZem HCL [dilTIAZem HCL 24Hr 180 mg PO DAILY 12/05/20 08/04/21 ER (CD)] Amiodarone [Cordarone] 200 mg PO BID 07/09/21 08/04/21 Losartan [Cozaar] 25 mg PO DAILY 07/09/21 08/04/21 Metoprolol Tartrate [Lopressor] 50 mg PO BID 07/09/21 08/04/21 Montelukast [Singulair] 10 mg PO HS 07/09/21 08/04/21 amLODIPine [Norvasc] 5 mg PO DAILY 07/09/21 08/04/21 Previous Rx's Medication Instructions Recorded Aspirin [Adult Low Dose Aspirin EC] 81 mg PO DAILY #90 tab 12/08/20 Nitroglycerin Sl Tabs [Nitrostat] 0.4 mg SUBLINGUAL Q5M PRN tab 12/08/20 Prasugrel [Effient] 10 mg PO DAILY #30 tab 12/08/20 Allergies Allergy/AdvReac Type Severity Reaction Status Date / Time diazepam [From Valium] AdvReac Hallucinati Verified 07/30/22 11:21 ons meclizine [From Antivert] AdvReac Anaphylaxis Verified 07/30/22 11:21 Review of Systems ROS Statement: Those systems with pertinent positive or pertinent negative responses have been documented in the HPI. ROS Other: All systems not noted in ROS Statement are negative. Constitutional: Denies: fever Eyes: Denies: eye pain ENT: Denies: ear pain Respiratory: Denies: cough Cardiovascular: Reports: as per HPI, palpitations Endocrine: Denies: fatigue Gastrointestinal: Denies: abdominal pain Genitourinary: Denies: dysuria Musculoskeletal: Denies: back pain Skin: Denies: rash Neurological: Denies: weakness Past Medical History Past Medical History: Atrial Fibrillation, Coronary Artery Disease (CAD), Chest Pain / Angina, Hypertension Additional Past Medical History / Comment(s): extensive cardiac history, A-fib, SEEN IN ER FOR BLOOD IN STOOL R/T HEMORRHOIDS History of Any Multi-Drug Resistant Organisms: None Reported Past Surgical History: Adenoidectomy, Heart Catheterization, Heart Catheterization With Stent, Joint Replacement, Orthopedic Surgery, Pacemaker, Tonsillectomy Additional Past Surgical History / Comment(s): stents in lower extremities, RT KNEE PARTIAL REPLACEMENT, RT RACHID, COLONOSCOPY, BILAT CATARACTS REMOVED WITH LENS IMPLANTS, FEM FEM CROSS OVER X 2, STENT IN LT ARM, BILAT GROIN STENTS, HEART STENTS X 3, BILAT CTR, Past Anesthesia/Blood Transfusion Reactions: No Reported Reaction Date of Last Stent Placement:: 2008 Past Psychological History: No Psychological Hx Reported Smoking Status: Former smoker Past Alcohol Use History: None Reported Past Drug Use History: None Reported - Past Family History Mother Family Medical History: Chest Pain / Angina, Deep Vein Thrombosis (DVT), Myocardial Infarction (GA), Pulmonary Embolus Father Family Medical History: CVA/TIA General Exam Limitations: no limitations General appearance: alert, in no apparent distress Head exam: Present: normocephalic Eye exam: Present: normal appearance Neck exam: Present: normal inspection Respiratory exam: Present: normal lung sounds bilaterally Cardiovascular Exam: Present: tachycardia, irregular rhythm GI/Abdominal exam: Present: soft. Absent: tenderness Extremities exam: Present: normal inspection. Absent: pedal edema, calf tenderness Neurological exam: Present: alert Psychiatric exam: Present: normal affect, normal mood Skin exam: Present: normal color Course Vital Signs 07/30/22 07/30/22 07/30/22 11:15 11:57 12:00 Temperature 98.0 F Pulse Rate 81 98 110 H Respiratory 20 20 18 Rate Blood Pressure 162/72 O2 Sat by Pulse 99 97 98 Oximetry 07/30/22 12:30 Temperature Pulse Rate 62 Respiratory 12 Rate Blood Pressure 108/43 O2 Sat by Pulse 99 Oximetry EKG Findings - EKG Results: EKG: interpreted by KOREYD (Atrial flutter. Left axis. Normal QRS. Nonspecific ST-T.) Medical Decision Making - Medical Decision Making Was pt. sent in by a medical professional or institution (, [facility], REPULPING SUPERVISOR, urgent care, hospital, or half-way...) When possible be specific @ -No Did you speak to anyone other than the patient for history (EMS, parent, family, police, friend...)? What history was obtained from this source @ - is present and helps provide additional history including patient's strickler attendant Did you review nursing and triage notes (agree or disagree)? Why? @ -I reviewed and agree with nursing and triage notes Were old charts reviewed (outside hosp., previous admission, EMS record, old EKG, old radiological studies, urgent care reports/EKG's, half-way records)? Report findings @ -No old charts were reviewed Differential Diagnosis (chest pain, altered mental status, abdominal pain women, abdominal pain men, vaginal bleeding, weakness, fever, dyspnea, syncope, headache, dizziness, GI bleed, back pain, seizure, CVA, palpatations, mental health)? @ EKG interpreted by me (3pts min.). @ -As above X-rays interpreted by me (1pt min.). @ -Chest x-ray shows no acute process. Elevation of right hemidiaphragm. CT interpreted by me (1pt min.). @ -None done U/S interpreted by me (1pt. min.). @ -None done What testing was considered but not performed or refused? (CT, X-rays, U/S, labs)? Why? @ -None What meds were considered but not given or refused? Why? @ -None Did you discuss the management of the patient with other professionals (professionals i.e. , [facility], REPULPING SUPERVISOR, lab, RT, psych nurse, licensed social worker, plastic sheeting cutter, teacher, command and control officer, manager case)? Give summary @ -No Was smoking cessation discussed for >3mins.? @ -No Was critical care preformed (if so, how long)? @ -No Were there social determinants of health that impacted care today? How? (Homelessness, low income, unemployed, alcoholism, drug addiction, trans portation, low edu. Level, literacy, decrease access to med. care, nursing home, rehab)? @ -No Was there de-escalation of care discussed even if they declined (Discuss DNR or withdrawal of care, Hospice)? DNR status @ -No What co-morbidities impacted this encounter? (DM, HTN, Smoking, COPD, CAD, Cancer, CVA, ARF, Chemo, Hep., AIDS, mental health diagnosis, sleep apnea, morbid obesity)? @ -None Was patient admitted / discharged? Hospital course, mention meds given and route, prescriptions, significant lab abnormalities, going to OR and other pertinent info. @ -Patient reevaluated and symptom-free. Monitor with sinus rhythm. Patient and family are updated on results and need for follow-up. Undiagnosed new problem with uncertain prognosis? @ -No Drug Therapy requiring intensive monitoring for toxicity (Heparin, Nitro, Insulin, Cardizem)? @ -No Were any procedures done? @ -No Diagnosis/symptom? @ -Atrial flutter Acute, or Chronic, or Acute on Chronic? @ -Acute on chronic Uncomplicated (without systemic symptoms) or Complicated (systemic symptoms)? @ -default Side effects of treatment? @ -No Exacerbation, Progression, or Severe Exacerbation? @ -No Poses a threat to life or bodily function? How? (Chest pain, USA, GA, pneumonia, PE, COPD, DKA, ARF, appy, cholecystitis, CVA, Diverticulitis, Homicidal, Suicidal, threat to staff... and all critical care pts) @ -No - Lab Data Result diagrams: 07/30/22 12:01 07/30/22 12: Lab Results 07/30/22 07/30/22 07/30/22 Range/Units 12: 12: 12: WBC 8.7 (3.8-10.6) k/uL RBC 5.20 (3.80-5.40) m/uL Hgb 15.0 (11.4-16.0) gm/dL Hct 46.6 H (34.0-46.0) % MCV 89.7 (80.0-100.0) fL MCH 28.9 (25.0-35.0) pg MCHC 32.2 (31.0-37.0) g/dL RDW 14.8 (11.5-15.5) % Plt Count 227 (150-450) k/uL MPV 9.3 Neutrophils % 56 % Lymphocytes % 34 % Monocytes % 6 % Eosinophils % 2 % Basophils % 0 % Neutrophils # 4.8 (1.3-7.7) k/uL Lymphocytes # 2.9 (1.0-4.8) k/uL Monocytes # 0.6 (0-1.0) k/uL Eosinophils # 0.1 (0-0.7) k/uL Basophils # 0.0 (0-0.2) k/uL PT 11.4 (9.0-12.0) sec INR 1.1 (<1.2) APTT 27.1 (22.0-30.0) sec Sodium 140 (137-145) mmol/L Potassium 4.6 (3.5-5.1) mmol/L Chloride 103 (98-107) mmol/L Carbon Dioxide 30 (22-30) mmol/L Anion Gap 7 mmol/L BUN 25 H (7-17) mg/dL Creatinine 1.05 H (0.52-1.04) mg/dL Est GFR (CKD-EPI)AfAm 60 (>60 ml/min/1.73 sqM) Est GFR (CKD-EPI)NonAf 52 (>60 ml/min/1.73 sqM) Glucose 88 (74-99) mg/dL Calcium 8.9 (8.4-10.2) mg/dL Magnesium 2.4 H (1.6-2.3) mg/dL Total Bilirubin 0.4 (0.2-1.3) mg/dL AST 20 (14-36) U/L ALT 16 (4-34) U/L Alkaline Phosphatase 69 (38-126) U/L Troponin I (0.000-0.034) ng/mL Total Protein 7.2 (6.3-8.2) g/dL Albumin 4.0 (3.5-5.0) g/dL TSH 2.770 (0.465-4.680) mIU/L Free T4 1.13 (0.78-2.19) ng/dL Free T3 pg/mL 4.1 (2.8-5.3) pg/ml 07/30/22 Range/Units 12:01 WBC (3.8-10.6) k/uL RBC (3.80-5.40) m/uL Hgb (11.4-16.0) gm/dL Hct (34.0-46.0) % MCV (80.0-100.0) fL MCH (25.0-35.0) pg MCHC (31.0-37.0) g/dL RDW (11.5-15.5) % Plt Count (150-450) k/uL MPV Neutrophils % % Lymphocytes % % Monocytes % % Eosinophils % % Basophils % % Neutrophils # (1.3-7.7) k/uL Lymphocytes # (1.0-4.8) k/uL Monocytes # (0-1.0) k/uL Eosinophils # (0-0.7) k/uL Basophils # (0-0.2) k/uL PT (9.0-12.0) sec INR (<1.2) APTT (22.0-30.0) sec Sodium (137-145) mmol/L Potassium (3.5-5.1) mmol/L Chloride (98-107) mmol/L Carbon Dioxide (22-30) mmol/L Anion Gap mmol/L BUN (7-17) mg/dL Creatinine (0.52-1.04) mg/dL Est GFR (CKD-EPI)AfAm (>60 ml/min/1.73 sqM) Est GFR (CKD-EPI)NonAf (>60 ml/min/1.73 sqM) Glucose (74-99) mg/dL Calcium (8.4-10.2) mg/dL Magnesium (1.6-2.3) mg/dL Total Bilirubin (0.2-1.3) mg/dL AST (14-36) U/L ALT (4-34) U/L Alkaline Phosphatase (38-126) U/L Troponin I <0.012 (0.000-0.034) ng/mL Total Protein (6.3-8.2) g/dL Albumin (3.5-5.0) g/dL TSH (0.465-4.680) mIU/L Free T4 (0.78-2.19) ng/dL Free T3 pg/mL (2.8-5.3) pg/ml Disposition Clinical Impression: Atrial flutter Disposition: HOME SELF-CARE Condition: Stable Instructions (If sedation given, give patient instructions): Heart Palpitations (ED), Atrial Flutter (ED) Additional Instructions: Please do follow-up with your primary care physician and strickler attendant in the next day or 2 for recheck. Return for increased heart rate, pain, difficulty breathing, worsening or change in symptoms or other concerns. Is patient prescribed a controlled substance at d/c from ED?: No Referrals: Lewis Mendoza MD [Primary Care Provider] - 1-2 days Time of Disposition: 13:52
--- NOTE | 2022-07-30 12:13 | XR ---
EXAMINATION TYPE: XR chest 2V DATE OF EXAM: 07/30/2022 12:06 PM COMPARISON: Chest radiographs from 01/10/2021 TECHNIQUE: XR chest 2V Frontal and lateral views of the chest. CLINICAL INDICATION:Female, 76 years old with history of dysrhythmia; FINDINGS: Lungs/Pleura: There is no evidence of pleural effusion, focal consolidation, or pneumothorax. Elevati on of the right hemidiaphragm redemonstrated. Pulmonary vascularity: Unremarkable. Heart/mediastinum: Cardiomediastinal silhouette is enlarged and stable. Two lead cardiac conduction d evice overlying the left hemithorax with lead tips projecting over the right ventricle and right atri um. Musculoskeletal: No acute osseous pathology. IMPRESSION: 1. No acute cardiopulmonary disease/process. 2. Chronic elevation of the right hemidiaphragm. 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 This can be further evaluated with fluoroscopic sniff test as clinically indicated.
[2022-07-30 12:16] LABS: Basophils % (A) 0 %; Eosinophils # (A) 0.1 k/uL (0-0.7); Eosinophils % (A) 2 %; HCT 46.6 % (34.0-46.0); Lymphocytes # (A) 2.9 k/uL (1.0-4.8); Lymphocytes % (A) 34 %; MCH 28.9 pg (25.0-35.0); MCHC 32.2 g/dL (31.0-37.0); MCV 89.7 fL (80.0-100.0); Mean Platelet Volume 9.3; Monocytes # (A) 0.6 k/uL (0-1.0); Monocytes % (A) 6 %; Neutrophils # (A) 4.8 k/uL (1.3-7.7); Neutrophils % (A) 56 %; Platelet Count 227 k/uL (150-450); RDW 14.8 % (11.5-15.5); WBC 8.7 k/uL (3.8-10.6)
[2022-07-30 12:27] LABS: Calcium 8.9 mg/dL (8.4-10.2); Magnesium 2.4 mg/dL (1.6-2.3); Potassium 4.6 mmol/L (3.5-5.1); Total Bilirubin 0.4 mg/dL (0.2-1.3); Total Protein 7.2 g/dL (6.3-8.2)
[2022-07-30 12:28] LABS: INR 1.1 (<1.2); Partial Thromboplastin Time 27.1 sec (22.0-30.0); Prothrombin Time 11.4 sec (9.0-12.0)
[2022-07-30 12:42] LABS: T4, Free (Free Thyroxine) 1.13 ng/dL (0.78-2.19)
[2022-07-30 14:21] VITALS: BP 119/53; PULSE 60; RESP 18
== END 2022-07-30 14:21 | disposition home or self-care (01) ==
LOC: EC 11:08
DX: I48.92 Unspecified atrial flutter (principal); I25.10 Atherosclerotic heart disease of native coronary artery without angina pectoris; I10 Essential (primary) hypertension; Z87.891 Personal history of nicotine dependence; Z88.6 Allergy status to analgesic agent; Z88.8 Allergy status to other drugs, medicaments and biological substances; Z79.899 Other long term (current) drug therapy; Z79.01 Long term (current) use of anticoagulants
CPT/HCPCS: 36415; 93005; 84439; 84481; 80053; 83735; 84443; 84484; 85025; 85610; 85730; 71046; 99285; 96374; J2060

== ENCOUNTER → 2023-03-28 | Outpatient (CLI) | payer MEDICARE, BC ==
--- NOTE | 2023-03-29 09:16 | MM ---
Reason for Exam: Screening (asymptomatic). Patient History: Menarche at age 12. First Full-Term at age 21. Postmenopausal. Risk Values: Janis 5 year model risk: 1.6%. NCI Lifetime model risk: 3.0%. Prior Study Comparison: No prior studies available for comparison. Tissue Density: There are scattered fibroglandular densities. Findings: Analyzed By CAD. There is no suspicious group of microcalcifications or new suspicious mass. Overall Assessment: Negative, BI-RAD 1 Management: Screening Mammogram of both breasts in [address] [facility] will attempt to contact patient to return for supplemental views and ultrasound if indicated. Patient should continue monthly self-breast exams. A clinical breast exam by your physician is recommended on an annual basis. This exam should not preclude additional follow-up of suspicious palpable abnormalities. Note on Janis scores and lifetime risk: 1. A Janis score greater than 3% is considered moderate risk. If this is the case, consider specialist referral to assess eligibility for a risk reducing agent. 2. If overall lifetime risk for the development of breast cancer is 20% or higher, the patient may qualify for future screening with alternating mammogram and breast MRI. Electronically signed and approved by: Milan Sanchez DO
--- NOTE | 2023-03-30 12:00 | BD ---
EXAMINATION TYPE: Axial Bone Density DATE OF EXAM: 03/28/2023 CLINICAL HISTORY: 77 years old Female. ICD-10 CODE: N95.1 MENOPAUSAL AND FEMALE CLIMA Height: 61 in Weight: 224 lbs RISK FACTORS HISTORY OF: Surgery to Hip(right): rt hip age 67 Active: limited Postmenopausal woman: age 58 MEDICATIONS: Additional Medications: vit d,heart meds, blood pressure meds, blood thinners, EXAM MEASUREMENTS: Bone mineral densitometry was performed using the [employer]. Bone mineral density as measured about the Lumbar spine is: ----- L1-L4(G/cm2): 1.470 T Score Values are as follows: ----- L1: 1.4 ----- L2: 2.1 ----- L3: 2.6 ----- L4: 3.2 ----- L1-L4: 2.4 Z Score Values are as follows: ----- L1: 2.1 ----- L2: 2.7 ----- L3: 3.2 ----- L4: 3.8 ----- L1-L4: 3.0 Bone mineral density baseline Bone mineral density about the L hip (g/cm2): 0.974 T Score values are as follows: -----L Neck: -1.9 -----L Total: -0.3 Z Score values are as follows: -----L Neck: -0.6 -----L Total: 0.8 Bone mineral density baseline FRAX%s: The graph provided illustrates a 12.2% chance for a major osteoporotic fx and a 3.0% chance f or the hips probability for fx in 10 years time. IMPRESSION: Osteopenia (T Score between -2.5 and -1). There is slightly increased risk of fracture and the patient may be considered for treatment. Re-Screen 2-5 years. NOTE: T-SCORE=SD OF THE YOUNG ADULT MEAN.
== END | disposition home or self-care (01) ==
LOC: RADMAMWWP 06:54
PROVIDERS: ATTEND Family Medicine
DX: Z12.31 Encounter for screening mammogram for malignant neoplasm of breast (principal); N95.1 Menopausal and female climacteric states; M85.852 Other specified disorders of bone density and structure, left thigh
CPT/HCPCS: 77063; 77067; 77080

== ENCOUNTER 2023-07-11 10:11 | Emergency (ER) | payer MEDICARE, BC ==
--- NOTE | 2023-07-11 10:34 | ED ---
Abdominal Pain HPI - General Chief Complaint: Abdominal Pain Stated Complaint: Bowel Obstruction after Enema Time Seen by Provider: 07/11/23 10:25 Source: patient, RN notes reviewed Mode of arrival: wheelchair Limitations: no limitations - History of Present Illness Initial Comments: 77-year-old female with a history of diverticulosis presents emergency department chief complaint of constipation. She states that her formed bowel movement was about a week ago. She states that over the last few days she has had difficulty time having complete bowel movements and states she has been passing small round bowel movements. She denies any hematochezia or bright red blood per rectum. Patient states that her last colonoscopy was about 1 year ago where they did not report any abnormal findings and was stated to follow-up as scheduled. Patient states that she does have a history of hemorrhoids, but denies any Luciana or dark or tarry stools at this time. She states that she is taken a senna laxative last night, MiraLAX this morning, and tried a enema at home with no relief. States that she has a bloating sensation in her abdomen that it is cramping, similar sensation when she has to have a bowel movement - Related Data Home Medications Medication Instructions Recorded Confirmed Cholecalciferol [Vitamin D3 (25 25 mcg PO HS 12/05/20 07/11/23 Mcg = 1000 Iu)] Rivaroxaban [Xarelto] 20 mg PO W/SUPPER 12/05/20 07/11/23 Venlafaxine HCl ER [Effexor XR] 150 mg PO DAILY 12/05/20 07/11/23 Losartan [Cozaar] 25 mg PO DAILY 07/09/21 07/11/23 Clotrimazole/Betameth Cream 1 applic TOPICAL BID PRN 07/11/23 07/11/23 [Lotrisone] HYDROcodone/APAP 10-325MG [[place] 1 tab PO Q6HR PRN 07/11/23 07/11/23 10-325] Metoprolol Tartrate [Lopressor] 100 mg PO BID 07/11/23 07/11/23 Vit C/E/Zn/Coppr/Lutein/Zeaxan 1 cap PO BID 07/11/23 07/11/23 [Preservision Areds 2 Softgel] dilTIAZem HCL [dilTIAZem HCL 24Hr 240 mg PO DAILY 07/11/23 07/11/23 ER (Xr)] Previous Rx's Medication Instructions Recorded Amoxic-Pot Clav 875-125Mg 1 tab PO Q12HR #20 tab 07/11/23 [Augmentin 875-125] Fluconazole 150 mg PO ONCE #1 tab 07/11/23 Allergies Allergy/AdvReac Type Severity Reaction Status Date / Time meclizine [From Antivert] Allergy Anaphylaxis Verified 07/11/23 13:46 diazepam [From Valium] AdvReac Hallucinati Verified 07/11/23 13:46 ons/angry Review of Systems ROS Statement: Those systems with pertinent positive or pertinent negative responses have been documented in the HPI. ROS Other: All systems not noted in ROS Statement are negative. Past Medical History Past Medical History: Atrial Fibrillation, Coronary Artery Disease (CAD), Chest Pain / Angina, Hypertension Additional Past Medical History / Comment(s): extensive cardiac history, A-fib, SEEN IN ER FOR BLOOD IN STOOL R/T HEMORRHOIDS History of Any Multi-Drug Resistant Organisms: None Reported Past Surgical History: Adenoidectomy, Heart Catheterization, Heart Cathet erization With Stent, Joint Replacement, Orthopedic Surgery, Pacemaker, Tonsillectomy Additional Past Surgical History / Comment(s): stents in lower extremities, RT KNEE PARTIAL REPLACEMENT, RT RACHID, COLONOSCOPY, BILAT CATARACTS REMOVED WITH LENS IMPLANTS, FEM FEM CROSS OVER X 2, STENT IN LT ARM, BILAT GROIN STENTS, HEART STENTS X 3, BILAT CTR, Past Anesthesia/Blood Transfusion Reactions: No Reported Reaction Date of Last Stent Placement:: 2008 Past Psychological History: No Psychological Hx Reported Smoking Status: Former smoker Past Alcohol Use History: None Reported Past Drug Use History: None Reported - Past Family History Mother Family Medical History: Chest Pain / Angina, Deep Vein Thrombosis (DVT), Myocardial Infarction ([place]), Pulmonary Embolus Father Family Medical History: CVA/TIA General Exam Limitations: no limitations General appearance: alert, in no apparent distress Head exam: Present: atraumatic, normocephalic, normal inspection Eye exam: Present: normal appearance, PERRL, EOMI. Absent: scleral icterus, conjunctival injection, periorbital swelling ENT exam: Present: normal exam, mucous membranes moist Neck exam: Present: normal inspection. Absent: tenderness, meningismus, lymphadenopathy Respiratory exam: Present: normal lung sounds bilaterally. Absent: respiratory distress, wheezes, rales, rhonchi, stridor Cardiovascular Exam: Present: regular rate, normal rhythm, normal heart sounds. Absent: systolic murmur, diastolic murmur, rubs, gallop, clicks GI/Abdominal exam: Present: soft, distended, tenderness (RLQ and LLQ to palpation). Absent: guarding, rebound Extremities exam: Present: normal inspection, full ROM, normal capillary refill. Absent: tenderness, pedal edema, joint swelling, calf tenderness Back exam: Present: normal inspection Neurological exam: Present: alert, oriented X3, CN II-XII intact Psychiatric exam: Present: normal affect, normal mood Skin exam: Present: warm, dry, intact, normal color. Absent: rash Course Vital Signs 07/11/23 07/11/23 07/11/23 10:19 13:34 15:21 Temperature 97.9 F Pulse Rate 77 111 H 80 Respiratory 16 18 18 Rate Blood Pressure 132/57 124/98 127/74 O2 Sat by Pulse 98 98 96 Oximetry Medical Decision Making - Medical Decision Making Was pt. sent in by a medical professional or institution (, PA, AUTO FORMER MACHINE OPERATOR, urgent care, hospital, or senior living...) When possible be specific @ -No Did you speak to anyone other than the patient for history (EMS, parent, family, police, friend...)? What history was obtained from this source @ -No Did you review nursing and triage notes (agree or disagree)? Why? @ -I reviewed and agree with nursing and triage notes Were old charts reviewed (outside hosp., previous admission, EMS record, old EKG, old radiological studies, urgent care reports/EKG's, senior living records)? Report findings @ -No old charts were reviewed Differential Diagnosis (chest pain, altered mental status, abdominal pain women, abdominal pain men, vaginal bleeding, weakness, fever, dyspnea, syncope, headache, dizziness, GI bleed, back pain, seizure, CVA, palpatations, mental health, musculoskeletal)? @ -Differential Abdominal Pain Women: Appendicitis, Cholecystitis, diverticulosis, ischemic bowel, pancreatitis, hepatitis, UTI, gastroenteritis, AAA, incarcerated hernia, bowel obstruction, constipation, inflammatory bowel, hepatitis, peptic ulcer disease, splenic infarction, perforated viscus, vulvitis, ovarian torsion, PID, kidney stone, placenta abruption, this is not meant to be an all-inclusive list EKG interpreted by me (3pts min.). @ -None X-rays interpreted by me (1pt min.). @ -None done CT interpreted by me (1pt min.). @ -CT of abdomen and pelvis with contrast reveals findings of diverticulitis in the descending colon U/S interpreted by me (1pt. min.). @ -None done What testing was considered but not performed or refused? (CT, X-rays, U/S, labs)? Why? @ -None What meds were considered but not given or refused? Why? @ -None Did you discuss the management of the patient with other professionals (professionals i.e. , PA, AUTO FORMER MACHINE OPERATOR, lab, RT, psych nurse, social work instructor, roller coaster designer, teacher, chief analytics officer, housing case manager)? Give summary @ -No Was smoking cessation discussed for >3mins.? @ -No Was critical care preformed (if so, how long)? @ -No Were there social determinants of health that impacted care today? How? (Homelessness, low income, unemployed, alcoholism, drug addiction, transportation, low edu. Level, literacy, decrease access to med. care, fci, rehab)? @ -No Was there de-escalation of care discussed even if they declined (Discuss DNR or withdrawal of care, Hospice)? DNR status @ -No What co-morbidities impacted this encounter? (DM, HTN, Smoking, COPD, CAD, Cancer, CVA, ARF, Chemo, Hep., AIDS, mental health diagnosis, sleep apnea, morbid obesity)? @ -None Was patient admitted / discharged? Hospital course, mention meds given and route, prescriptions, significant lab abnormalities, going to OR and other p ertinent info. @ -77-year-old female with chief complaint of abdominal distention and constipation. X-ray KUB with no acute findings. Physical examination patient was found to be tender of the left lower quadrant and right lower quadrant on palpation. Patient's last CT of abdomen was done 2 years ago, due to findings of tenderness on examination, basic laboratory results were ordered and patient was sent for CT of abdomen revealed findings of acute diverticulitis. Discussed results of finding with patient, and she will be sent home on oral antibiotics. I discussed this case with my attending Dr. Dueñas who is agreeable with plan and for discharge. Undiagnosed new problem with uncertain prognosis? @ -No Drug Therapy requiring intensive monitoring for toxicity (Heparin, Nitro, Insulin, Cardizem)? @ -No Were any procedures done? @ -No Diagnosis/symptom? @ -abdominal pain, diverticulitis Acute, or Chronic, or Acute on Chronic? @ -Acute Uncomplicated (without systemic symptoms) or Complicated (systemic symptoms)? @ -uncomplicated Side effects of treatment? @ -No Exacerbation, Progression, or Severe Exacerbation? @ -No Poses a threat to life or bodily function? How? (Chest pain, [place], [place], pneumonia, PE, COPD, DKA, ARF, appy, cholecystitis, CVA, Diverticulitis, Homicidal, Suicidal, threat to staff... and all critical care pts) @ -No - Lab Data Result diagrams: 07/11/23 11:40 07/11/23 11:40 Lab Results 07/11/23 07/11/23 07/11/23 Range/Units 11:40 11:40 11:40 WBC 12.7 H (3.8-10.6) k/uL RBC 4.85 (3.80-5.40) m/uL Hgb 14.5 (11.4-16.0) gm/dL Hct 45.9 (34.0-46.0) % MCV 94.5 (80.0-100.0) fL MCH 29.9 (25.0-35.0) pg MCHC 31.6 (31.0-37.0) g/dL RDW 14.5 (11.5-15.5) % Plt Count 189 (150-450) k/uL MPV 9.8 Neutrophils % 75 % Lymphocytes % 19 % Monocytes % 4 % Eosinophils % 1 % Basophils % 0 % Neutrophils # 9.5 H (1.3-7.7) k/uL Lymphocytes # 2.4 (1.0-4.8) k/uL Monocytes # 0.5 (0-1.0) k/uL Eosinophils # 0.1 (0-0.7) k/uL Basophils # 0.0 (0-0.2) k/uL PT 11.0 (10.0-12.5) sec INR 1.0 (<1.2) APTT 26.4 (22.0-30.0) sec Sodium 139 (137-145) mmol/L Potassium 4.4 (3.5-5.1) mmol/L Chloride 104 (98-107) mmol/L Carbon Dioxide 27 (22-30) mmol/L Anion Gap 8 mmol/L BUN 28 H (7-17) mg/dL Creatinine 0.84 (0.52-1.04) mg/dL Est GFR (CKD-EPI)AfAm 78 (>60 ml/min/1.73 sqM) Est GFR (CKD-EPI)NonAf 67 (>60 ml/min/1.73 sqM) Glucose 107 H (74-99) mg/dL Calcium 8.9 (8.4-10.2) mg/dL Total Bilirubin 0.5 (0.2-1.3) mg/dL AST 22 (14-36) U/L ALT 15 (4-34) U/L Alkaline Phosphatase 76 (38-126) U/L Total Protein 6.9 (6.3-8.2) g/dL Albumin 3.8 (3.5-5.0) g/dL Amylase 48 (30-110) U/L Lipase 35 (23-300) U/L Disposition Clinical Impression: Diverticulitis Narrative: Please return to the emergency department if symptoms worsen or do not improve. Complete full dose of antibiotics as prescribed. Take fluconazole as needed for yeast infection Disposition: HOME SELF-CARE Condition: Good Prescriptions: Amoxic-Pot Clav 875-125Mg [Augmentin 875-125] 1 tab PO Q12HR #20 tab Fluconazole 150 mg PO ONCE #1 tab Is patient prescribed a controlled substance at d/c from ED?: No Referrals: Lewis Mendoza MD [Primary Care Provider] - 1-2 days Time of Disposition: 15:00
[2023-07-11 10:55] VITALS: TEMP 97.9
--- NOTE | 2023-07-11 11:15 | XR ---
EXAMINATION TYPE: XR KUB DATE OF EXAM: 07/11/2023 COMPARISON: None INDICATION: Constipation TECHNIQUE: Single view abdomen upright view FINDINGS: There is a normal bowel gas pattern. Psoas margins are normal. No organomegaly is present. No significant fecal retention is evident. IMPRESSION: 1. Unremarkable Abdomen
[2023-07-11] MEDS: ONDANSETRON 4 MG/2 ML VIAL IVP STA (12:07)
[2023-07-11 12:31] LABS: Basophils % (A) 0 %; Eosinophils # (A) 0.1 k/uL (0-0.7); Eosinophils % (A) 1 %; HCT 45.9 % (34.0-46.0); HGB 14.5 gm/dL (11.4-16.0); Lymphocytes # (A) 2.4 k/uL (1.0-4.8); Lymphocytes % (A) 19 %; MCH 29.9 pg (25.0-35.0); MCHC 31.6 g/dL (31.0-37.0); MCV 94.5 fL (80.0-100.0); Mean Platelet Volume 9.8; Monocytes # (A) 0.5 k/uL (0-1.0); Monocytes % (A) 4 %; Neutrophils # (A) 9.5 k/uL (1.3-7.7); Neutrophils % (A) 75 %; Platelet Count 189 k/uL (150-450); RBC 4.85 m/uL (3.80-5.40); RDW 14.5 % (11.5-15.5); WBC 12.7 k/uL (3.8-10.6)
[2023-07-11 12:33] LABS: Partial Thromboplastin Time 26.4 sec (22.0-30.0)
[2023-07-11 12:46] LABS: ALT 15 U/L (4-34); AST 22 U/L (14-36); African American GFR (CKD) 78 (>60 ml/min/1.73 sqM); Albumin 3.8 g/dL (3.5-5.0); Alkaline Phosphatase 76 U/L (38-126); Amylase 48 U/L (30-110); Anion Gap 8 mmol/L; Blood Urea Nitrogen 28 mg/dL (7-17); Calcium 8.9 mg/dL (8.4-10.2); Carbon Dioxide 27 mmol/L (22-30); Chloride 104 mmol/L (98-107); Glucose 107 mg/dL (74-99); Lipase 35 U/L (23-300); Non-African American GFR(CKD) 67 (>60 ml/min/1.73 sqM); Potassium 4.4 mmol/L (3.5-5.1); Sodium 139 mmol/L (137-145); Total Bilirubin 0.5 mg/dL (0.2-1.3); Total Protein 6.9 g/dL (6.3-8.2)
[2023-07-11 14:01] VITALS: RESP 18
--- NOTE | 2023-07-11 14:31 | CT ---
EXAMINATION TYPE: CT abdomen pelvis w con CT DLP: 1751 mGycm, Automated exposure control for dose reduction was used. DATE OF EXAM: 07/11/2023 1:30 PM COMPARISON: CT abdomen pelvis 01/10/2021 CLINICAL INDICATION:Female, 77 years old with history of abdominal pain, constipation; abdominal pain , Constipation TECHNIQUE: Axial CT abdomen pelvis w con; Sagittal and coronal reformats were created on a separate workstation. Contrast used:100 ml mL of Isovue 300 with IV Contrast, (none if empty) Oral contrast used: without Oral Contrast (none if empty) FINDINGS: LOWER CHEST: Unremarkable ABDOMEN LIVER: Unremarkable. Elevation of the right hemidiaphragm by the liver GALLBLADDER AND BILE DUCTS: Unremarkable. PANCREAS: Unremarkable. SPLEEN: Unremarkable. ADRENAL GLANDS: Unremarkable. KIDNEYS AND URETERS: No evidence of hydronephrosis or renal calculus. The ureters are unremarkable. PELVIS BLADDER: Unremarkable REPRODUCTIVE: Unremarkable. ABDOMEN & PELVIS STOMACH AND BOWEL: Stomach and duodenum are unremarkable. Scattered diverticula are noted throughout the colon. Mild sigmoid colon wall thickening and fat haziness suggesting mild diverticulitis may be present. No evidence of bowel obstruction. PERITONEUM/RETROPERITONEUM: No evidence of pneumoperitoneum or free fluid. VASCULATURE: Aortoiliac bypass graft reidentified. MUSCULOSKELETAL: No acute osseous abnormalities. Artificial right hip. LYMPH NODES: No gross evidence for lymphadenopathy. SOFT TISSUE/ABDOMINAL WALL: Unremarkable IMPRESSION: 1. Mild sigmoid colon wall thickening and fat haziness suggesting mild diverticulitis may be present .
[2023-07-11 15:52] VITALS: BP 127/74; PULSE 80
== END 2023-07-11 15:22 | disposition home or self-care (01) ==
LOC: EC 10:11
DX: K57.32 Diverticulitis of large intestine without perforation or abscess without bleeding (principal); Z87.891 Personal history of nicotine dependence; Z88.8 Allergy status to other drugs, medicaments and biological substances
CPT/HCPCS: 99284; 96374; 36415; 80053; 82150; 83690; 85025; 85610; 85730; 74018; 74177; J2405; Q9967

== ENCOUNTER → 2024-04-23 | Outpatient (CLI) | payer MEDICARE, BC ==
--- NOTE | 2024-04-23 16:20 | US ---
EXAMINATION TYPE: US kidneys/renal and bladder DATE OF EXAM: 04/23/2024 COMPARISON: CT abdomen and pelvis July 11, 2023 CLINICAL INDICATION: Female, 78 years old with history of R94.4 ABNORMAL RESULTS OF KIDNEY FUNCTION S TUDIES; abn renal labs, no symptoms TECHNIQUE: Grayscale imaging of the bilateral kidneys and urinary bladder: FINDINGS: EXAM MEASUREMENTS: Right Kidney: 7.6 x 3.8 x 4.5 cm Left Kidney: 10.1 x 3.7 x 5.1 cm Right Kidney: small in size with thinning cortex Left Kidney: thinning cortex Bladder: wnl Bilateral Jets seen: Yes There is no evidence for hydronephrosis at this point in time. Cortical thinning is present bilateral ly. No nephrolithiasis is seen. No masses are identified. The urinary bladder is adequately disten ded. IMPRESSION: Evidence of chronic medical renal disease. No hydronephrosis is seen bilaterally. [facility], Workstation: [employer], 04/23/2024 4:18 PM
== END | disposition home or self-care (01) ==
LOC: RADUSWWP 15:44
PROVIDERS: ATTEND Family Medicine
DX: N28.89 Other specified disorders of kidney and ureter (principal); R94.4 Abnormal results of kidney function studies
CPT/HCPCS: 76770

== ENCOUNTER 2024-06-10 10:11 | Emergency (ER) | payer MEDICARE, BC ==
[2024-06-10 10:16] VITALS: TEMP 97.6
[2024-06-10] MEDS ORDERED: HEPARIN SODIUM 1,000 UN/ML (10ML VL) IV PRN (11:04)
[2024-06-10 11:14] LABS: Basophils % (A) 0 %; Eosinophils # (A) 0.2 k/uL (0-0.7); Eosinophils % (A) 3 %; HCT 40.4 % (34.0-46.0); Lymphocytes # (A) 2.6 k/uL (1.0-4.8); Lymphocytes % (A) 26 %; MCH 30.2 pg (25.0-35.0); MCHC 32.3 g/dL (31.0-37.0); MCV 93.6 fL (80.0-100.0); Mean Platelet Volume 9.4; Monocytes # (A) 0.6 k/uL (0-1.0); Monocytes % (A) 6 %; Neutrophils # (A) 6.2 k/uL (1.3-7.7); Neutrophils % (A) 63 %; Platelet Count 178 k/uL (150-450); RBC 4.32 m/uL (3.80-5.40); RDW 14.4 % (11.5-15.5); WBC 9.8 k/uL (3.8-10.6)
[2024-06-10] MEDS: HYDROmorphone 1 MG/ML 1 ML SYRINGE IVP STA (11:20)
[2024-06-10] MEDS: HEPARIN SODIUM 1,000 UN/ML (10ML VL) IV ONE (11:25)
[2024-06-10 11:26] LABS: INR 1.1 (<1.2); Partial Thromboplastin Time 22.6 sec (22.0-30.0); Prothrombin Time 11.5 sec (10.0-12.5)
[2024-06-10] MEDS: HEPARIN SOD,PORK IN 0.45% NACL 25,000 UNIT in 0.45% NACL 1 250ML.BAG IV SCH (11:27)
[2024-06-10 11:32] LABS: Basophils % (A) 0 %; Eosinophils # (A) 0.2 k/uL (0-0.7); Eosinophils % (A) 3 %; HCT 41.4 % (34.0-46.0); HGB 12.7 gm/dL (11.4-16.0); Hypochromasia Slight; Lymphocytes # (A) 2.4 k/uL (1.0-4.8); Lymphocytes % (A) 26 %; MCH 29.2 pg (25.0-35.0); MCHC 30.7 g/dL (31.0-37.0); MCV 95.1 fL (80.0-100.0); Mean Platelet Volume 9.1; Monocytes # (A) 0.5 k/uL (0-1.0); Monocytes % (A) 5 %; Neutrophils # (A) 5.9 k/uL (1.3-7.7); Neutrophils % (A) 64 %; Platelet Count 184 k/uL (150-450); RBC 4.35 m/uL (3.80-5.40); RDW 14.3 % (11.5-15.5); WBC 9.2 k/uL (3.8-10.6)
[2024-06-10 11:34] VITALS: RESP 20
[2024-06-10 11:45] LABS: ALT 12 U/L (4-34); AST 18 U/L (14-36); African American GFR (CKD) 77 (>60 ml/min/1.73 sqM); Albumin 3.7 g/dL (3.5-5.0); Alkaline Phosphatase 59 U/L (38-126); Anion Gap 5 mmol/L; Blood Urea Nitrogen 20 mg/dL (7-17); Calcium 8.8 mg/dL (8.4-10.2); Carbon Dioxide 29 mmol/L (22-30); Chloride 103 mmol/L (98-107); Glucose 85 mg/dL (74-99); Magnesium 2.1 mg/dL (1.6-2.3); Non-African American GFR(CKD) 67 (>60 ml/min/1.73 sqM); Potassium 4.7 mmol/L (3.5-5.1); Sodium 137 mmol/L (137-145); Total Bilirubin 0.5 mg/dL (0.2-1.3); Total Protein 6.5 g/dL (6.3-8.2)
[2024-06-10 12:35] LABS: Partial Thromboplastin Time 24.1 sec (22.0-30.0); Prothrombin Time 11.2 sec (10.0-12.5)
--- NOTE | 2024-06-10 12:45 | P.GSCN ---
History of Present Illness Consult date: 06/10/24 Reason for Consult: Right lower extremity pain, right popliteal artery occlusion Requesting physician: Rico Bernard History of present illness: Is a pleasant 78-year-old female with multiple comorbidities including si gnificant history of peripheral arterial disease status post lower extremity stents, bilateral femorofemoral bypass and aortic by Heard bypass as well as coronary artery disease status post stenting, atrial fibrillation on Xarelto, permanent pacemaker, hypertension and former smoker. Patient has been following Dr. Muro for multiple years her peripheral revascularization has been all done by Dr. Muro she states that her last aortic bifemoral was about 14 years ago or more. She has follow-up with Dr. Muro for yearly ultrasounds. Apparently she had acute onset pain in her right lower extremity it started on after her colonoscopy but by Sunday night she had quite a bit of pain which she felt that she likely had an occlusion. She called Dr. Muro's office Sunday and went in for arterial Doppler that showed a popliteal artery occlusion of the right lower extremity with aortic bifemoral patent graft. Pain goes to from her groin down. Most of her discomfort feels like a tight band around her right groin. She denies any shortness of breath or chest pain. No abdominal pain, nausea or vomiting. She is able to move her right lower extremity and has been able to walk. Review of Systems A 14 point review systems was completed all pertinent positives and negatives as stated in the HPI. Past Medical History Past Medical History: Atrial Fibrillation, Coronary Artery Disease (CAD), Chest Pain / Angina, Hypertension Additional Past Medical History / Comment(s): extensive cardiac history, A-fib, SEEN IN ER FOR BLOOD IN STOOL R/T HEMORRHOIDS History of Any Multi-Drug Resistant Organisms: None Reported Past Surgical History: Adenoidectomy, Heart Catheterization, Heart Catheterization With Stent, Joint Replacement, Orthopedic Surgery, Pacemaker, Tonsillectomy Additional Past Surgical History / Comment(s): stents in lower extremities, RT KNEE PARTIAL REPLACEMENT, RT RACHID, COLONOSCOPY, BILAT CATARACTS REMOVED WITH LENS IMPLANTS, FEM FEM CROSS OVER X 2, STENT IN LT ARM, BILAT GROIN STENTS, HEART STENTS X 3, BILAT CTR, Past Anesthesia/Blood Transfusion Reactions: No Reported Reaction Date of Last Stent Placement:: 2008 Past Psychological History: No Psychological Hx Reported Smoking Status: Former smoker Past Alcohol Use History: None Reported Past Drug Use History: None Reported - Past Family History Mother Family Medical History: Chest Pain / Angina, Deep Vein Thrombosis (DVT), My ocardial Infarction ([place]), Pulmonary Embolus Father Family Medical History: CVA/TIA Medications and Allergies Home Medications Medication Instructions Recorded Confirmed Type Cholecalciferol [Vitamin D3 (25 25 mcg PO HS 12/05/20 06/10/24 History Mcg = 1000 Iu)] Rivaroxaban [Xarelto] 20 mg PO HS 12/05/20 06/10/24 History Venlafaxine HCl ER [Effexor XR] 150 mg PO DAILY 12/05/20 06/10/24 History Losartan [Cozaar] 25 mg PO DAILY 07/09/21 06/10/24 History HYDROcodone/APAP 10-325MG [[place] 1 tab PO Q6HR PRN 07/11/23 06/10/24 History 10-325] Metoprolol Tartrate [Lopressor] 100 mg PO BID 07/11/23 06/10/24 History Vit C/E/Zn/Coppr/Lutein/Zeaxan 1 cap PO BID 07/11/23 06/10/24 History [Preservision Areds 2 Softgel] dilTIAZem HCL [dilTIAZem HCL 24Hr 240 mg PO DAILY 07/11/23 06/10/24 History ER (Xr)] Cyanocobalamin (Vitamin B-12) 1,000 mcg PO DAILY 06/10/24 06/10/24 History [Vitamin B-12] Allergies Allergy/AdvReac Type Severity Reaction Status Date / Time meclizine [From Antivert] Allergy Anaphylaxis Verified 06/10/24 12:23 diazepam [From Valium] AdvReac Hallucinati Verified 06/10/24 12:23 ons/angry Surgical - Exam Vital Signs Temp Pulse Resp BP Pulse Ox 97.6 F 72 18 141/81 97 06/10/24 10:12 06/10/24 10:12 06/10/24 10:12 06/10/24 10:12 06/10/24 10:12 General appearance: The patient is alert, oriented, appears in no acute distress. HET: Head is normocephalic and atraumatic. Pupils are equal and reactive. Neck: Supple. Heart: Regular. Lungs: Equal expansion, normal respiratory effort. Abdomen: Soft, nontender, nondistended. Extremities: Normal skin color and turgor. Palpable femoral pulses. Nonpalpable right PT or DP pulse. Calf is tender to palpation. Warm to the touch. Sensorimotor intact. Neurological: Alert and oriented. Results - Labs 06/10/24 11:16 06/10/24 10:45 Assessment and Plan Assessment: 1. Right lower extremity pain, popliteal artery occlusion per arterial duplex 2. History of peripheral arterial disease with history of aortic bifemoral, bilateral femorofemoral bypass and lower extremity stents 3. History of coronary artery disease status post stents follows with Dr. Metzger 4. Atrial fibrillation 5. Permanent pacemaker 6. Former smoker Plan: 1. Keep n.p.o. 2. Start IV heparin infusion per protocol 3. CBC, CMP, type and screen ordered 4. CT abdomen thoracic with rundown ordered 5. Hold Xarelto 6. Further recommendations forthcoming per vascular surgeon 7. Consult to cardiology for cardiac clearance for possible lower extremity revascularization 8. Rest of medical management per primary medical team Thank you for this consultation, we will continue to follow. The impression and plan of care has been dictated as directed. Dr. Mac I performed a history and examination of this patient, discussed the same with the dictator. I agree with the dictator's note ,documented as a scribe. Any additional findings or plans will be noted.
--- NOTE | 2024-06-10 13:33 | ED ---
Extremity Problem HPI - General Chief complaint: Extremity Problem,Nontraumatic Stated complaint: R leg pain Time Seen by Provider: 06/10/24 10:18 Source: patient, RN notes reviewed Mode of arrival: ambulatory Limitations: no limitations - History of Present Illness Initial comments: 78-year-old female presents emergency department from vascular office for evaluation of possible lower extremity occlusion. Patient's had prior bypass. Patient states that she had arterial duplex yesterday showing some acute abnormality patient follow-up with Dr. Mac today sent earlier for CT. Patient states that she does have some discomfort, states it "feels cold he cannot find a strong pulse. - Related Data Home Medications Medication Instructions Recorded Confirmed Cholecalciferol [Vitamin D3 (25 25 mcg PO HS 12/05/20 06/10/24 Mcg = 1000 Iu)] Rivaroxaban [Xarelto] 20 mg PO HS 12/05/20 06/10/24 Venlafaxine HCl ER [Effexor XR] 150 mg PO DAILY 12/05/20 06/10/24 Losartan [Cozaar] 25 mg PO DAILY 07/09/21 06/10/24 HYDROcodone/APAP 10-325MG [[place] 1 tab PO Q6HR PRN 07/11/23 06/10/24 10-325] Metoprolol Tartrate [Lopressor] 100 mg PO BID 07/11/23 06/10/24 Vit C/E/Zn/Coppr/Lutein/Zeaxan 1 cap PO BID 07/11/23 06/10/24 [Preservision Areds 2 Softgel] dilTIAZem HCL [dilTIAZem HCL 24Hr 240 mg PO DAILY 07/11/23 06/10/24 ER (Xr)] Cyanocobalamin (Vitamin B-12) 1,000 mcg PO DAILY 06/10/24 06/10/24 [Vitamin B-12] Allergies Allergy/AdvReac Type Severity Reaction Status Date / Time meclizine [From Antivert] Allergy Anaphylaxis Verified 06/10/24 12:23 diazepam [From Valium] AdvReac Hallucinati Verified 06/10/24 12:23 ons/angry Review of Systems ROS Statement: Those systems with pertinent positive or pertinent negative responses have been documented in the HPI. ROS Other: All systems not noted in ROS Statement are negative. Past Medical History Past Medical History: Atrial Fibrillation, Coronary Artery Disease (CAD), Chest Pain / Angina, Hypertension Additional Past Medical History / Comment(s): extensive cardiac history, A-fib, SEEN IN ER FOR BLOOD IN STOOL R/T HEMORRHOIDS History of Any Multi-Drug Resistant Organisms: None Reported Past Surgical History: Adenoidectomy, Heart Catheterization, Heart Catheterization With Stent, Joint Replacement, Orthopedic Surgery, Pacemaker, Tonsillectomy Additional Past Surgical History / Comment(s): stents in lower extremities, RT KNEE PARTIAL REPLACEMENT, RT RACHID, COLONOSCOPY, BILAT CATARACTS REMOVED WITH LENS IMPLANTS, FEM FEM CROSS OVER X 2, STENT IN LT ARM, BILAT GROIN STENTS, H EART STENTS X 3, BILAT CTR, Past Anesthesia/Blood Transfusion Reactions: No Reported Reaction Date of Last Stent Placement:: 2008 Past Psychological History: No Psychological Hx Reported Smoking Status: Former smoker Past Alcohol Use History: None Reported Past Drug Use History: None Reported - Past Family History Mother Family Medical History: Chest Pain / Angina, Deep Vein Thrombosis (DVT), Myocardial Infarction (PR), Pulmonary Embolus Father Family Medical History: CVA/TIA General Exam Limitations: no limitations General appearance: alert, in no apparent distress Head exam: Present: atraumatic, normocephalic, normal inspection Eye exam: Present: normal appearance, PERRL, EOMI. Absent: scleral icterus, conjunctival injection, periorbital swelling Respiratory exam: Present: normal lung sounds bilaterally. Absent: respiratory distress, wheezes, rales, rhonchi, stridor Cardiovascular Exam: Present: regular rate, normal rhythm, normal heart sounds. Absent: systolic murmur, diastolic murmur, rubs, gallop, clicks Extremities exam: Present: other (Right lower extremity cool to touch, no palpable pulse) Neurological exam: Present: alert, oriented X3, CN II-XII intact Course Vital Signs 06/10/24 06/10/24 06/10/24 10:12 11:32 13:09 Temperature 97.6 F Pulse Rate 72 56 L 56 L Respiratory 18 20 20 Rate Blood Pressure 141/81 131/63 126/98 O2 Sat by Pulse 97 96 95 Oximetry Medical Decision Making - Medical Decision Making Was pt. sent in by a medical professional or institution (, PA, [employer], urgent care, hospital, or intermediate...) When possible be specific @ -Vascular Did you speak to anyone other than the patient for history (EMS, parent, family, police, friend...)? What history was obtained from this source @ -No Did you review nursing and triage notes (agree or disagree)? Why? @ -I reviewed and agree with nursing and triage notes Were old charts reviewed (outside hosp., previous admission, EMS record, old EKG, old radiological studies, urgent care reports/EKG's, intermediate records)? Report findings @ -No old charts were reviewed Differential Diagnosis (chest pain, altered mental status, abdominal pain women, abdominal pain men, vaginal bleeding, weakness, fever, dyspnea, syncope, headache, dizziness, GI bleed, back pain, seizure, CVA, palpatations, mental health, musculoskeletal)? @ -Arterial occlusion, stent occlusion, graft occlusion, peripheral arterial disease EKG interpreted by me (3pts min.). @ -As above X-rays interpreted by me (1pt min.). @ -None done CT interpreted by me (1pt min.). @ -CT angio abdominal to lower extremity runoff showing occlusion with reconstitution below U/S interpreted by me (1pt. min.). @ -None done What testing was considered but not performed or refused? (CT, X-rays, U/S, labs)? Why? @ -None What meds were considered but not given or refused? Why? @ -None Did you discuss the management of the patient with other professionals (professionals i.e. , PA, [employer], lab, RT, psych nurse, director of social services, digital librarian, teacher, development officer, case management director)? Give summary @ -[Vascular surgeon reviewed CT and discussed with patient about outpatient bypass. Was smoking cessation discussed for >3mins.? @ -No Was critical care preformed (if so, how long)? @ -No Were there social determinants of health that impacted care today? How? (Homele ssness, low income, unemployed, alcoholism, drug addiction, transportation, low edu. Level, literacy, decrease access to med. care, snf, rehab)? @ -No Was there de-escalation of care discussed even if they declined (Discuss DNR or withdrawal of care, Hospice)? DNR status @ -No What co-morbidities impacted this encounter? (DM, HTN, Smoking, COPD, CAD, Cancer, CVA, ARF, Chemo, Hep., AIDS, mental health diagnosis, sleep apnea, morbid obesity)? @ -None Was patient admitted / discharged? Hospital course, mention meds given and route, prescriptions, significant lab abnormalities, going to OR and other pertinent info. @ -[Discharge patient was eval by vascular surgeon after CT was obtained patient will follow-up in office outpatient and she will continue anticoagulants and analgesics. Undiagnosed new problem with uncertain prognosis? @ -No Drug Therapy requiring intensive monitoring for toxicity (Heparin, Nitro, Insulin, Cardizem)? @ -No Were any procedures done? @ -No Diagnosis/symptom? @ -Peripheral arterial disease Acute, or Chronic, or Acute on Chronic? @ -Acute Uncomplicated (without systemic symptoms) or Complicated (systemic symptoms)? @ -Complicated Side effects of treatment? @ -No Exacerbation, Progression, or Severe Exacerbation? @ -No Poses a threat to life or bodily function? How? (Chest pain, [place], PR, pneumonia, PE, COPD, DKA, ARF, appy, cholecystitis, CVA, Diverticulitis, Homicidal, Suicidal, threat to staff... and all critical care pts) @ -No - Lab Data Result diagrams: 06/10/24 11:16 06/10/24 10:45 Lab Results 06/10/24 06/10/24 06/10/24 Range/Units 10:45 10:45 10:45 WBC 9.8 (3.8-10.6) k/uL RBC 4.32 (3.80-5.40) m/uL Hgb 13.0 (11.4-16.0) gm/dL Hct 40.4 (34.0-46.0) % MCV 93.6 (80.0-100.0) fL MCH 30.2 (25.0-35.0) pg MCHC 32.3 (31.0-37.0) g/dL RDW 14.4 (11.5-15.5) % Plt Count 178 (150-450) k/uL MPV 9.4 Neutrophils % 63 % Lymphocytes % 26 % Monocytes % 6 % Eosinophils % 3 % Basophils % 0 % Neutrophils # 6.2 (1.3-7.7) k/uL Lymphocytes # 2.6 (1.0-4.8) k/uL Monocytes # 0.6 (0-1.0) k/uL Eosinophils # 0.2 (0-0.7) k/uL Basophils # 0.0 (0-0.2) k/uL Hypochromasia PT 11.5 (10.0-12.5) sec INR 1.1 (<1.2) APTT 22.6 (22.0-30.0) sec Sodium 137 (137-145) mmol/L Potassium 4.7 (3.5-5.1) mmol/L Chloride 103 (98-107) mmol/L Carbon Dioxide 29 (22-30) mmol/L Anion Gap 5 mmol/L BUN 20 H (7-17) mg/dL Creatinine 0.84 (0.52-1.04) mg/dL Est GFR (CKD-EPI)AfAm 77 (>60 ml/min/1.73 sqM) Est GFR (CKD-EPI)NonAf 67 (>60 ml/min/1.73 sqM) Glucose 85 (74-99) mg/dL Calcium 8.8 (8.4-10.2) mg/dL Magnesium 2.1 (1.6-2.3) mg/dL Total Bilirubin 0.5 (0.2-1.3) mg/dL AST 18 (14-36) U/L ALT 12 (4-34) U/L Alkaline Phosphatase 59 (38-126) U/L Total Protein 6.5 (6.3-8.2) g/dL Albumin 3.7 (3.5-5.0) g/dL 06/10/24 06/10/24 Range/Units 11:16 11:16 WBC 9.2 (3.8-10.6) k/uL RBC 4.35 (3.80-5.40) m/uL Hgb 12.7 (11.4-16.0) gm/dL Hct 41.4 (34.0-46.0) % MCV 95.1 (80.0-100.0) fL MCH 29.2 (25.0-35.0) pg MCHC 30.7 L (31.0-37.0) g/dL RDW 14.3 (11.5-15.5) % Plt Count 184 (150-450) k/uL MPV 9.1 Neutrophils % 64 % Lymphocytes % 26 % Monocytes % 5 % Eosinophils % 3 % Basophils % 0 % Neutrophils # 5.9 (1.3-7.7) k/uL Lymphocytes # 2.4 (1.0-4.8) k/uL Monocytes # 0.5 (0-1.0) k/uL Eosinophils # 0.2 (0-0.7) k/uL Basophils # 0.0 (0-0.2) k/uL Hypochromasia Slight PT 11.2 (10.0-12.5) sec INR 1.0 (<1.2) APTT 24.1 (22.0-30.0) sec Sodium (137-145) mmol/L Potassium (3.5-5.1) mmol/L Chloride (98-107) mmol/L Carbon Dioxide (22-30) mmol/L Anion Gap mmol/L BUN (7-17) mg/dL Creatinine (0.52-1.04) mg/dL Est GFR (CKD-EPI)AfAm (>60 ml/min/1.73 sqM) Est GFR (CKD-EPI)NonAf (>60 ml/min/1.73 sqM) Glucose (74-99) mg/dL Calcium (8.4-10.2) mg/dL Magnesium (1.6-2.3) mg/dL Total Bilirubin (0.2-1.3) mg/dL AST (14-36) U/L ALT (4-34) U/L Alkaline Phosphatase (38-126) U/L Total Protein (6.3-8.2) g/dL Albumin (3.5-5.0) g/dL Disposition Clinical Impression: PAD (peripheral artery disease), Leg pain Disposition: HOME SELF-CARE Condition: Stable Instructions (If sedation given, give patient instructions): Peripheral Artery Disease (ED) Additional Instructions: Please return to the Emergency Department if symptoms worsen or any other concerns. Is patient prescribed a controlled substance at d/c from ED?: No Referrals: Lewis Mendoza MD [Primary Care Provider] - 1-2 days Caleb Mac DO [STAFF PHYSICIAN] - 1-2 days Time of Disposition: 13:32
--- NOTE | 2024-06-10 13:38 | CT ---
CTA abdomen with runoff. HISTORY: Right leg pain. COMPARISON: None. TECHNIQUE: Multiple axial images were obtained through the abdomen, pelvis and lower extremities befo re and after nonionic IV contrast. The exam was performed according to the department CTA protocol. 3 -D post processing was performed FINDINGS: Inflow CTA: There are occluded stents in the [place] common iliac arteries. There is a widely patent aortobifemora l bypass graft and there is no significant stenosis. There is moderate atherosclerotic calcification of the abdominal aorta without evidence of aneurysm or stenosis. Outflow CTA: The common femoral anastomoses are widely patent. There are no outflow aneurysms. On the left, there is no significant stenosis of the common, profunda femoral, superficial femoral o r popliteal arteries. On the right , there is no significant stenosis of the superficial femoral, and profunda femoral or common femoral arteries. The popliteal artery is patent to just below the knee where it is occluded. The trifurcation vessels are reconstituted via small collateral vessels. Runoff CTA: On the right, there is single vessel runoff via the anterior tibial artery. The peroneal and posteri or tibial artery are occluded proximally within the calf. On the left, there is two-vessel runoff via the anterior and peroneal arteries. The posterior tibial artery occludes proximally. Nonvascular findings: Visualized lung bases are clear. The gallbladder and biliary tree are unremarkable. There is no focal mass or organomegaly involving the liver, pancreas, spleen and adrenal glands. There is mild left renal atrophy but no solid renal mass or hydronephrosis. There is no retroperitone al adenopathy. The bowel loops normal in caliber and there is no dilatation, inflammation or obstruction. There is a small ventral hernia containing seen in a nondilated nonstrangulated loop of colon. There is no pelvic mass or adenopathy. There is moderate diverticulosis of the sigmoid colon but no d iverticulitis. There is a right hip prosthesis. There is no focal osseous abnormality. IMPRESSION: 1. Patent aortobifemoral bypass graft. There is no significant inflow stenosis bilaterally. 2. Occluded distal right popliteal artery resulting in severe outflow stenosis. 3. No significant outflow stenosis on the left.. 4. single-vessel runoff on the right and 2 vessel runoff on the left as described above [facility], , 06/10/2024 1:36 PM
[2024-06-10 14:22] VITALS: BP 129/62; PULSE 62
== END 2024-06-10 14:29 | disposition home or self-care (01) ==
LOC: EC 10:11
DX: I73.9 Peripheral vascular disease, unspecified (principal); M79.604 Pain in right leg; Z87.891 Personal history of nicotine dependence; Z88.8 Allergy status to other drugs, medicaments and biological substances
CPT/HCPCS: 36415; 80053; 83735; 85025; 85610; 85730; 75635; 99284; 96365; 96366 ×2; 96375; J1644 ×2; J1171; Q9967

== ENCOUNTER → 2024-07-10 | Outpatient (CLI) | payer MEDICARE, BC ==
[2024-07-10 11:30] LABS: INR 1.1 (<1.2); Partial Thromboplastin Time 25.6 sec (22.0-30.0); Prothrombin Time 12.3 sec (10.0-12.5)
[2024-07-10 14:45] LABS: Basophils # (A) 0.06 X 10*3/uL (0.00-0.10); Basophils % (A) 0.7 %; Eosinophils # (A) 0.34 X 10*3/uL (0.04-0.35); Eosinophils % (A) 3.7 %; HCT 46.8 % (37.2-46.3); Lymphocytes # (A) 2.96 X 10*3/uL (0.90-5.00); Lymphocytes % (A) 32.3 %; MCH 29.8 pg (27.0-32.0); MCHC 32.1 g/dL (32.0-37.0); MCV 92.9 FL (80.0-97.0); Mean Platelet Volume 12.4 FL (9.5-12.2); Monocytes # (A) 0.78 X 10*3/uL (0.20-1.00); Monocytes % (A) 8.5 %; NRBC Per 100 WBC 0 X 10*3/uL (0.00-0.01); Neutrophils # (A) 4.99 X 10*3/uL (1.80-7.70); Neutrophils % (A) 54.5 %; Platelet Count 217 X 10*3/uL (140-440); RBC 5.04 X 10*6/uL (4.10-5.20); RDW 14.9 % (11.5-14.5); WBC 9.16 X 10*3/uL (4.50-10.00)
== END | disposition home or self-care (01) ==
LOC: LABPAT 10:26
PROVIDERS: ATTEND Surgery
DX: Z01.812 Encounter for preprocedural laboratory examination (principal); I70.213 Atherosclerosis of native arteries of extremities with intermittent claudication, bilateral legs
CPT/HCPCS: 36415; 82565; 84520; 85025; 85610; 85730; 86850; 86900; 86901

== ENCOUNTER 2024-07-14 05:32 | Inpatient (IN) | payer MEDICARE, BC ==
[2024-07-09 17:12] VITALS: BMI 39.4
[2024-07-14] MEDS: LACTATED RINGERS 1,000 ML IV SCH (07:05)
[2024-07-14] MEDS: DEXAMETHASONE SOD PHOSPHATE 4 MG/ML 1 ML VIAL IV ONE (07:07)
[2024-07-14] MEDS: IV FLUID CONTINUATION 1,000 ML IV ONE ×2 (07:07→07:08)
[2024-07-14] MEDS: ONDANSETRON 4 MG/2 ML VIAL IVP ONE (07:07)
[2024-07-14] MEDS: MIDAZOLAM 2 MG/2 ML VIAL IV ONE (07:11)
[2024-07-14] MEDS ORDERED: PROPOFOL 10 MG/ML 20 ML VIAL IV ONE (07:25)
[2024-07-14] MEDS ORDERED: SUCCINYLCHOLINE CHLORIDE 200 MG/10 ML VIAL IV ONE (07:25)
[2024-07-14] MEDS ORDERED: NEOSTIGMINE 1 MG/ML 10 ML VIAL ONE (07:25)
[2024-07-14] MEDS ORDERED: PHENYLEPHRINE 10 MG/ML VIAL ONE (07:25)
[2024-07-14] MEDS ORDERED: GLYCOPYRROLATE 0.2 MG/ML 2 ML VIAL ONE (07:25)
[2024-07-14] MEDS ORDERED: fentaNYL (PF) 50 MCG/ML 2 ML AMP ONE (07:25)
[2024-07-14] MEDS ORDERED: ROCURONIUM 10 MG/ML (5 ML VIAL) IV ONE (07:25)
[2024-07-14] MEDS ORDERED: LIDOCAINE 1% INJ 10MG/ML (20 ML MDV) ONE (07:25)
[2024-07-14] MEDS ORDERED: HEPARIN SODIUM,PORCINE 10,000 UNIT/ML 1 ML VIAL ONE (07:25)
[2024-07-14] MEDS ORDERED: PHENYLEPHRINE-0.9% NACL SYG 1,000 MCG/10 ML SYRINGE ONE (07:25)
[2024-07-14] MEDS: ceFAZolin 4 GM in SODIUM CHLORIDE 0.9% 1,000 ML IRRIGATION ONE (08:00)
[2024-07-14] MEDS: HEPARIN SODIUM,PORCINE 10,000 UNIT in SODIUM CHLORIDE 0.9% 1,000 ML IRRIGATION ONE (08:00)
--- NOTE | 2024-07-14 10:11 | P.OP ---
Date of Procedure: 07/14/24 Preoperative Diagnosis: Right lower extremity disabling claudication Drew classification 3 Right popliteal artery occlusion with reconstitution at the anterior tibial artery Postoperative Diagnosis: Right lower extremity disabling claudication Drew classification 3 Right tibial peroneal, popliteal artery thrombosis and occlusive disease Procedure(s) Performed: Right distal popliteal, tibioperoneal trunk thrombectomy/endarterectomy and patch angioplasty Anesthesia: AMANDA Surgeon: Caleb Mac Estimated Blood Loss (ml): 20 Pathology: other (Popliteal plaque and thrombus) Condition: stable Disposition: PACU Indications for Procedure: 78-year-old female with history of preoperative disease, previous aortobiiliac bypass presented to the office secondary to disabling claudication Praful classification 3 and was found to have popliteal artery occlusion seen on CT angiogram as well as arterial Doppler. She presents today for distal femoral to tibial artery bypass. She states she is still unable to walk more than 50 to 100 feet without significant pain in bilateral lower extremities now worse on the left since she states she has been utilizing her left leg more because her right leg has been hurting so much. Operative Findings: Popliteal artery thrombosis with calcific occlusive disease Description of Procedure: After written and informed consent was obtained with the patient and all risk benefits and complications were described the patient was brought to the operative suite and laid in a supine position. The area of the right groin to toes where was prepped and draped in usual sterile fashion after appropriate anesthetic was performed per the anesthesiologist. A timeout was performed normal fashion antibiotics were administered prior to incision. Due to her significant disease behind the knee and in the tibial vessels with one-vessel runoff on CTA decision was made to attempt to get outflow control prior to inflow for the bypass. A medial incision was then created just below the knee with a 10 blade scalpel and dissection was carried down to the tibioperoneal trunk with electrocautery. The tibial peroneal trunk was encountered as well as the distal popliteal artery. Meticulous dissection was then carried around the proximal aspect of the distal popliteal artery as well as the anterior tibial and peroneal artery. Circumferential dissection was then carried around these vessels and controlled with Vesseloops. Of note the popliteal artery demonstrated a pulse which sharply occluded just before the tibioperoneal trunk and bifurcation. The patient was administered heparin and followed with ACT's. Proximal and distal control was clamped and arteriotomy was created with 11 blade scalpel at the distal popliteal extending into the tibioperoneal trunk. Large amount of thrombus was encountered as well as plaque. Due to this open thrombectomy was chosen to be performed and a #3 Jame was placed proximally into the SFA and thrombus was removed demonstrating a brisk pulsatile flow to the popliteal artery. Distal control was released revealing no flow from the peroneal vessel as well as from the anterior tibial artery. Attempt to place the Jame catheter distally was performed without any success and the peroneal vessel with difficulty placing into the anterior tibial. Endarterectomy was then performed extending towards the anterior tibial artery with good brisk backbleeding noted. Due to the fact that there was inflow patch angioplasty was then decided to be performed. A bovine pericardial patch was then sutured with 6-0 Prolene suture in normal fashion. Prior to last sutures being placed control was released revealing good pulsatile blood flow and backbleeding from the anterior tibial artery and popliteal artery. Final sutures were placed and pulsatile flow was noted at the patch site extending into the anterior tibial artery. Good distal flow was noted at the dorsalis pedis as well with good capillary refill. The area was copiously irrigated with antibiotic solution. Hemostasis was noted and the incision was then closed in a multilayer fashion. Skin was then cleansed and dressings were placed. The patient taught the proced ure well and had a multiphasic DP signal at the conclusion of the procedure.
[2024-07-14] MEDS ORDERED: HYDROcodone/APAP 5-325MG 1 EACH TAB PO PRN (10:39)
[2024-07-14] MEDS: HYDROmorphone 0.5 MG/0.5 ML SYRINGE IVP PRN (10:42)
[2024-07-14] MEDS: PREGABALIN 50 MG CAP PO SCH (16:32)
[2024-07-14] MEDS: METOPROLOL TARTRATE 50 MG TAB PO SCH (19:58)
[2024-07-14] MEDS: RIVAROXABAN 15 MG TAB PO SCH (19:58)
[2024-07-14] MEDS: CHOLECALCIFEROL 25 MCG (1000 IU) TABLET PO SCH (19:58)
[2024-07-14] MEDS: VIT A,C & E-LUTEIN-MINERALS 1 EACH TAB PO SCH (19:58)
[2024-07-15 01:54] VITALS: RESP 18
--- NOTE | 2024-07-15 08:29 | P.CONS ---
History of Present Illness - Reason for Consult Consult date: 07/15/24 - History of Present Illness This is a 78-year-old female who underwent a right distal popliteal, tibipperoneal trunk thrombectomy/endarterectomy and patch angioplasty with Dr. Mac yesterday. Patient is seen this morning laying in bed resting comfortably. She reports her right leg does feel somewhat better, but does still have some discomfort. Prior to surgery she was unable to walk more than 50 to 200 feet without significant pain in the bilateral extremities. Patient has a history of atrial fibrillation, hypertension, CAD, and osteoarthritis. Her vital signs are stable. She is tolerating her diet. Review of Systems Constitutional: Denies chills, Denies fever Cardiovascular: Denies chest pain, Denies dyspnea on exertion Respiratory: Denies cough, Denies dyspnea Gastrointestinal: Denies nausea, Denies vomiting Musculoskeletal: Denies arm numbness/tingling, Denies leg numbness/tingling Neurological: Denies headaches, Denies weakness Past Medical History Past Medical History: Atrial Fibrillation, Coronary Artery Disease (CAD), Chest Pain / Angina, Hypertension, Osteoarthritis (OA) Additional Past Medical History / Comment(s): lower extremity pain, extensive cardiovascular hx, diverticulitis, macular degeneration. History of Any Multi-Drug Resistant Organisms: None Reported Past Surgical History: Adenoidectomy, Heart Catheterization, Heart Catheterization With Stent, Joint Replacement, Orthopedic Surgery, Pacemaker, Tonsillectomy, Tubal Ligation Additional Past Surgical History / Comment(s): stents in lower extremities, R KNEE PARTIAL REPLACEMENT, R RACHID, COLONOSCOPY, B/L CATARACTS REMOVED W/ LENS IMPLANTS, FEM FEM CROSS OVER X 2, STENT IN L ARM, B/L GROIN STENTS, HEART STENTS X 3, BILAT CTR; pt states she currently has a "tube" that goes from her heart down to the arteries in both legs. Past Anesthesia/Blood Transfusion Reactions: No Reported Reaction Date of Last Stent Placement:: 2008 Type of Cardiac Device: Permanent Pacemaker Device Placement Date:: Pacemaker 2020 Smoking Status: Former smoker - Past Family History Mother Family Medical History: Deep Vein Thrombosis (DVT), Myocardial Infarction ([place]), Pulmonary Embolus Additional Family Medical History / Comment(s): passed from PE Father Family Medical History: CVA/TIA Additional Family Medical History / Comment(s): passed from CVA Sister(s) Family Medical History: Cancer Additional Family Medical History / Comment(s): Twin sister, basal cell carcinoma. Passed from cancer. Medications and Allergies Home Medications Medication Instructions Recorded Confirmed Type Cholecalciferol [Vitamin D3 (25 25 mcg PO HS 12/05/20 07/14/24 History Mcg = 1000 Iu)] Rivaroxaban [Xarelto] 20 mg PO HS 12/05/20 07/14/24 History Venlafaxine HCl ER [Effexor XR] 150 mg PO QAM 12/05/20 07/14/24 History Losartan [Cozaar] 25 mg PO DAILY 07/09/21 07/14/24 History HYDROcodone/APAP 10-325MG [[place] 1 tab PO BID PRN 07/11/23 07/14/24 History 10-325] Metoprolol Tartrate [Lopressor] 100 mg PO BID 07/11/23 07/14/24 History Vit C/E/Zn/Coppr/Lutein/Zeaxan 1 cap PO BID 07/11/23 07/14/24 History [Preservision Areds 2 Softgel] dilTIAZem HCL [dilTIAZem HCL 24Hr 240 mg PO DAILY 07/11/23 07/14/24 History ER (Xr)] Cyanocobalamin (Vitamin B-12) 1,000 mcg PO DAILY 06/10/24 07/14/24 History [Vitamin B-12] Pregabalin [Lyrica] 50 mg PO TID 07/09/24 07/14/24 History Aspirin 81 mg PO DAILY tab 07/15/24 Rx Allergies Allergy/AdvReac Type Severity Reaction Status Date / Time meclizine [From Antivert] Allergy Anaphylaxis Verified 07/14/24 06:17 diazepam [From Valium] AdvReac agitation/a Verified 07/14/24 06:17 ngry Physical Exam Vitals: Vital Signs Temp Pulse Resp BP BP Pulse Ox 07/15/24 03:29 97 18 118/58 96 07/15/24 01:52 18 07/14/24 22:56 84 16 97/55 94 L 07/14/24 20:00 18 07/14/24 19:43 98.2 F 94 17 138/69 94 L 07/14/24 16:20 17 07/14/24 14:45 98.2 F 59 L 17 141/81 97 03/31/25 14:01 95 16 106/72 98 07/14/24 13:30 98 16 101/74 98 07/14/24 13:01 87 16 94/65 98 07/14/24 12:30 105 H 16 116/59 98 07/14/24 12:00 96 16 107/61 99 07/14/24 11:46 92 16 99/57 97 07/14/24 11:31 82 16 98/63 97 07/14/24 11:15 105 H 16 96/62 97 07/14/24 11:00 98 16 107/68 97 07/14/24 10:46 107 H 16 130/56 97 07/14/24 10:30 109 H 16 131/61 97 07/14/24 10:15 97.2 F L 109 H 12 135/93 97 Intake and Output 07/14/24 07/15/24 07/15/24 22:59 06:59 14:59 Other: Voiding Method Bedside Commode Bedside Commode # Voids 1 Weight 97.7 kg - Constitutional General appearance: cooperative, no acute distress - EENT Eyes: PERRLA - Neck Neck: no lymphadenopathy, normal ROM, no rigidity - Respiratory Respiratory: bilateral: diminished - Cardiovascular Heart sounds: normal: S1, S2 - Gastrointestinal General gastrointestinal: soft, no tenderness - Integumentary Integumentary: normal, normal turgor - Musculoskeletal Musculoskeletal: strength equal bilaterally - Psychiatric Psychiatric: A&O x's 3, appropriate affect, intact judgment & insight Assessment and Plan (1) CAD (coronary artery disease) Current Visit: No Status: Acute Code(s): I25.10 - ATHSCL HEART DISEASE OF [place] CORONARY ARTERY W/O ANG PCTRS SNOMED Code(s): 11462109 (2) Hypertension Current Visit: No Status: Acute Code(s): I10 - ESSENTIAL (PRIMARY) HYPERTENSION SNOMED Code(s): 34328477 (3) PAD (peripheral artery disease) Current Visit: No Status: Acute Code(s): I73.9 - PERIPHERAL VASCULAR DISEASE, UNSPECIFIED SNOMED Code(s): 460829582 (4) History of atrial fibrillation Current Visit: Yes Status: Acute Code(s): Z86.79 - PERSONAL HISTORY OF OTHER DISEASES OF THE CIRCULATORY SYSTEM SNOMED Code(s): 365401386 (5) History of claudication Current Visit: Yes Status: Acute Code(s): Z86.79 - PERSONAL HISTORY OF OTHER DISEASES OF THE CIRCULATORY SYSTEM SNOMED Code(s): 437302637 Plan: Recommend continuing home medications. Continue to follow surgeon's postop instructions. Patient may be discharged from our standpoint when cleared by surgeon. Patient seen and evaluated by nurse practitioner, physician in agreement with plan.
[2024-07-15 08:40] VITALS: PULSE 65; TEMP 97.4
[2024-07-15 08:41] VITALS: BP 102/79
[2024-07-15] MEDS: DILTIAZEM CD 240 MG CAP.ER.24H PO SCH (08:49)
[2024-07-15] MEDS: ASPIRIN 81 MG PO SCH (08:49)
[2024-07-15] MEDS: LOSARTAN 25 MG TAB PO SCH (08:49)
[2024-07-15] MEDS: CYANOCOBALAMIN 500 MCG TAB PO SCH (08:49)
[2024-07-15] MEDS: VENLAFAXINE HCL ER 150 MG CAP PO SCH (08:54)
--- NOTE | 2024-07-15 09:56 | P.DS ---
Providers Date of admission: 07/14/24 05:32 Expected date of discharge: 07/15/24 Attending physician: Caleb Mac DO Consults: 07/14/24 13:11 Consult Physician Routine Consulting Provider: Lewis Mendoza Consult Reason/Comments: medical management Do you want consulting provider notified?: Yes Primary care physician: Lewis Mendoza Hospital Course: 78-year-old female with history of peripheral arterial disease with previous aortobiiliac bypass with disabling claudication [place] classification 3 and popliteal arterial occlusion seen on CT angiogram presented for elective distal femoral to tibial artery bypass however, during her procedure she was found to have a right tibial peroneal, popliteal artery thrombosis and occlusive disease. Patient is postop day #1 for right distal popliteal, tibioperoneal trunk thrombectomy/endarterectomy and patch angioplasty. She has been up and ambulating in her room. She is tolerating a regular diet. She is voiding without any difficulty. Blood pressures have been a little soft running anywhere from 90s/50s to 141/81. Otherwise patient has been afebrile, heart rate oxygen level and respiratory rate have been stable. Blood pressures discussed with PCP Dr. Mendoza's nurse practitioner and they would like patient to continue with home blood pressure medications with a follow-up in 2 to 3 days in their office. They state that her blood pressures are at her baseline. Patient denies any shortness of breath, chest pain, abdominal pain, nausea or vomiting. No dizziness. Does report significant improvement in claudication pain down the right lower extremity. Exam General appearance: The patient is alert, oriented, appears in no acute distress. Morbid obesity HET: Head is normocephalic and atraumatic. Pupils are equal and reactive. Neck: Supple. Heart: Regular. Lungs: Equal expansion, normal respiratory effort. Abdomen: Soft, nontender, nondistended. Extremities: Normal skin color and turgor. Right lower extremity surgical site clean dry and intact. Multiphasic DP Doppler signal. Skin: Right groin with redness, excoriation and bleeding. Neurological: No focal deficits. Strength and sensation are grossly intact. Assessment 1. Postop day #1 for right distal popliteal, tibioperoneal trunk thrombectomy/endarterectomy and patch angioplasty 2. Right tibial peroneal, popliteal artery thrombosis and occlusive disease 3. Right lower extremity disabling claudication, [place] classification 3 4. History of aortobiliac bypass 5. History of atrial fibrillation 6. History of hypertension 7. Coronary artery disease 8. Obesity Plan 1. Encourage ambulation 2. Consult to Dr. Mendoza for medical management 3. Resume home cardiac medications as recommended by patient's PCP Dr. Mendoza. Follow-up with them in 2 to 3 days. 4. Resume rest of home medications. Discharge instructions reviewed with patient, she verbalized understanding 5. Plan for discharge today The impression and plan of care has been dictated as directed. I performed a history and examination of this patient, discussed the same with the dictator. I agree with the dictator's note ,documented as a scribe. Any additional findings or plans will be noted. Procedures: Right common femoral, superficial femoral and profundus femoris artery endarterectomy and patch angioplasty Patient Condition at Discharge: Stable Plan - Discharge Summary Discharge Rx Participant: No New Discharge Prescriptions: New Aspirin 81 mg PO DAILY tab Continue Venlafaxine HCl ER [Effexor XR] 150 mg PO QAM Rivaroxaban [Xarelto] 20 mg PO HS Metoprolol Tartrate [Lopressor] 100 mg PO BID HYDROcodone/APAP 10-325MG [[place] 10-325] 1 tab PO BID PRN PRN Reason: Pain Vit C/E/Zn/Coppr/Lutein/Zeaxan [Preservision Areds 2 Softgel] 1 cap PO BID Pregabalin [Lyrica] 50 mg PO TID Cholecalciferol [Vitamin D3 (25 Mcg = 1000 Iu)] 25 mcg PO HS Losartan [Cozaar] 25 mg PO DAILY dilTIAZem HCL [dilTIAZem HCL 24Hr ER (Xr)] 240 mg PO DAILY Cyanocobalamin (Vitamin B-12) [Vitamin B-12] 1,000 mcg PO DAILY Discharge Medication List Cholecalciferol [Vitamin D3 (25 Mcg = 1000 Iu)] 25 mcg PO HS 12/05/20 [History] Rivaroxaban [Xarelto] 20 mg PO HS 12/05/20 [History] Venlafaxine HCl ER [Effexor XR] 150 mg PO QAM 12/05/20 [History] Losartan [Cozaar] 25 mg PO DAILY 07/09/21 [History] HYDROcodone/APAP 10-325MG [[place] 10-325] 1 tab PO BID PRN 07/11/23 [History] Metoprolol Tartrate [Lopressor] 100 mg PO BID 07/11/23 [History] Vit C/E/Zn/Coppr/Lutein/Zeaxan [Preservision Areds 2 Softgel] 1 cap PO BID 07/11/23 [History] dilTIAZem HCL [dilTIAZem HCL 24Hr ER (Xr)] 240 mg PO DAILY 07/11/23 [History] Cyanocobalamin (Vitamin B-12) [Vitamin B-12] 1,000 mcg PO DAILY 06/10/24 [History] Pregabalin [Lyrica] 50 mg PO TID 07/09/24 [History] Aspirin 81 mg PO DAILY tab 07/15/24 [Rx] Follow up Appointment(s)/Referral(s): Caleb Mac DO [STAFF PHYSICIAN] - 2 Weeks Lewis Mendoza MD [Primary Care Provider] - 3 Days Patient Instructions/Handouts: Mechanical Thrombectomy (DC) Activity/Diet/Wound Care/Special Instructions: No driving for seven days. Avoid heavy lifting greater than 10 lbs , pushing, pulling, straining, flights of stairs for three days. ok to shower tomorrow but no baths, pools, soaking in tubs for seven days to avoid risk of infection. signs of infection ie: fever, rash, drainage from puncture site, swelling contact doctor or return to ER immediately. Heavy bleeding from puncture site apply firm direct pressure and return to ER. Do not attempt to drive self. low sodium/low fat diet Discharge Disposition: HOME SELF-CARE
--- NOTE | 2024-07-16 11:13 | P.ANPRN ---
Procedure Note - Anesthesia - Invasive Line Right Arterial Line Time Out Performed: Yes Date of Procedure: 07/14/24 Time of Procedure: 07:15 Location of Patient: PreOp Preparation: Sterile Prep, Sterile Dressing Arterial Line Location: Briachial Ultrasound Used: No Purpose - Visualization and Identification of Vasculature: No Image Stored and Saved: No Narrative: Invasive line placement per sterile protocol utilized.
== END 2024-07-15 10:49 | disposition home or self-care (01) | DRG 271 ==
LOC: 2ORMAIN 05:32 → 3SCARD 14:05
PROVIDERS: ADMIT Surgery; ATTEND Surgery
PROC: 04CT3ZZ Extirpation of Matter from Right Peroneal Artery, Percutaneous Approach (ICD-10-PCS; 2024-07-14)
PROC: 04U Lower Arteries, Supplement (ICD-10-PCS; 2024-07-14)
PROC: 03HY32Z Insertion of Monitoring Device into Upper Artery, Percutaneous Approach (ICD-10-PCS; 2024-07-14)
PROC: B41F1ZZ Fluoroscopy of Right Lower Extremity Arteries using Low Osmolar Contrast (ICD-10-PCS; 2024-07-14)
PROC: 04CM3ZZ Extirpation of Matter from Right Popliteal Artery, Percutaneous Approach (ICD-10-PCS; principal; 2024-07-14 07:30)
DX: I70.211 Atherosclerosis of native arteries of extremities with intermittent claudication, right leg (principal); I74.3 Embolism and thrombosis of arteries of the lower extremities; E66.01 Morbid (severe) obesity due to excess calories; I10 Essential (primary) hypertension; I48.91 Unspecified atrial fibrillation; I25.10 Atherosclerotic heart disease of native coronary artery without angina pectoris; K64.9 Unspecified hemorrhoids; Z79.01 Long term (current) use of anticoagulants; Z79.82 Long term (current) use of aspirin; Z79.899 Other long term (current) drug therapy; Z82.49 Family history of ischemic heart disease and other diseases of the circulatory system; Z95.5 Presence of coronary angioplasty implant and graft; Z95.0 Presence of cardiac pacemaker; Z96.1 Presence of intraocular lens; Z98.51 Tubal ligation status; Z98.42 Cataract extraction status, left eye; Z98.41 Cataract extraction status, right eye; Z87.891 Personal history of nicotine dependence; Z68.39 Body mass index [BMI] 39.0-39.9, adult
CPT/HCPCS: 88304

== ENCOUNTER 2024-07-19 15:00 | Inpatient (IN) | payer MEDICARE, BC ==
[2024-07-19] MEDS ORDERED: RX INFO: IV CONTRAST WAS GIVEN 1 EACH MISC MISCELLANE PRN (15:30)
--- NOTE | 2024-07-19 15:39 | ED ---
Extremity Problem HPI - General Source: patient, RN notes reviewed Mode of arrival: wheelchair Limitations: no limitations <Rico Bernard - Last Filed: 07/19/24 15:37> - General Source: patient, RN notes reviewed, old records reviewed Mode of arrival: wheelchair Limitations: no limitations - History of Present Illness MD Complaint: extremity pain, extremity swelling -: days(s) Location: right, lower extremity -: Yes myalgia, Yes arthralgia Radiation: proximal, distal Severity scale (1-10): 7 Quality: aching, sharp Consistency: constant Improves with: nothing Worsens with: weight bearing, walking Associated Symptoms: denies other symptoms <Anibal Abbasi - Last Filed: 07/21/24 17:28> - General Chief complaint: Extremity Problem,Nontraumatic Stated complaint: R leg post op swelling Time Seen by Provider: 07/19/24 15:16 - History of Present Illness Initial comments: 78-year-old female presents emergency department with chief complaint of right leg pain and swelling. Patient states that she had vascular surgery by Dr. Mac on 07/14/2024 for arterial occlusion. Patient states that she has had multiple clots in the past. Patient has not noted blood thinners. Patient states she noticed increasing pain, swelling to her right leg denies any chest pain or shortness of breath. She states she has an incision in her right calf, right groin region. (Rico Bernard) This is a 78 female to ER for severe right pain right leg pain and swelling with recent right lower extremity surgery, patient has been on Eliquis in the past not currently (Anibal Abbasi) - Related Data Home Medications Medication Instructions Recorded Confirmed Cholecalciferol [Vitamin D3 (25 25 mcg PO HS 12/05/20 07/19/24 Mcg = 1000 Iu)] Rivaroxaban [Xarelto] 20 mg PO W/SUPPER 12/05/20 07/19/24 Venlafaxine HCl ER [Effexor XR] 150 mg PO DAILY 12/05/20 07/19/24 HYDROcodone/APAP 10-325MG [[place] 1 tab PO Q6H PRN 07/11/23 07/19/24 10-325] Metoprolol Tartrate [Lopressor] 100 mg PO BID 07/11/23 07/19/24 Cyanocobalamin (Vitamin B-12) 1,000 mcg PO DAILY 06/10/24 07/19/24 [Vitamin B-12] Pregabalin [Lyrica] 50 mg PO TID 07/09/24 07/19/24 Calcium Carbonate [Calcium] 600 mg PO HS 07/19/24 07/19/24 Clotrimazole/Betameth Cream 1 applic TOPICAL BID PRN 07/19/24 07/19/24 [Lotrisone] dilTIAZem HCL [Cardizem CD] 240 mg PO DAILY 07/19/24 07/19/24 Previous Rx's Medication Instructions Recorded Aspirin 81 mg PO DAILY tab 07/15/24 Allergies Allergy/AdvReac Type Severity Reaction Status Date / Time meclizine [From Antivert] Allergy Anaphylaxis Verified 07/19/24 18:35 diazepam [From Valium] AdvReac agitation/a Verified 07/19/24 18:35 ngry Review of Systems ROS Other: All systems not noted in ROS Statement are negative. <Rico Bernard - Last Filed: 07/19/24 15:37> ROS Other: All systems not noted in ROS Statement are negative. <Anibal Abbasi - Last Filed: 07/21/24 17:28> ROS Statement: Those systems with pertinent positive or pertinent negative responses have been documented in the HPI. Past Medical History Past Medical History: Atrial Fibrillation, Coronary Artery Disease (CAD), Chest Pain / Angina, Hypertension, Osteoarthritis (OA) Additional Past Medical History / Comment(s): lower extremity pain, extensive cardiovascular hx, diverticulitis, macular degeneration. History of Any Multi-Drug Resistant Organisms: None Reported Past Surgical History: Adenoidectomy, Heart Catheterization, Heart Catheterization With Stent, Joint Replacement, Orthopedic Surgery, Pacemaker, Tonsillectomy, Tubal Ligation Additional Past Surgical History / Comment(s): stents in lower extremities, R KNEE PARTIAL REPLACEMENT, R RACHID, COLONOSCOPY, B/L CATARACTS REMOVED W/ LENS IMPLANTS, FEM FEM CROSS OVER X 2, STENT IN L ARM, B/L GROIN STENTS, HEART STENTS X 3, BILAT CTR; pt states she currently has a "tube" that goes from her heart down to the arteries in both legs. Past Anesthesia/Blood Transfusion Reactions: No Reported Reaction Date of Last Stent Placement:: 2008 Type of Cardiac Device: Permanent Pacemaker Device Placement Date:: Pacemaker 2020 Past Psychological History: No Psychological Hx Reported Smoking Status: Former smoker Past Alcohol Use History: None Reported Past Drug Use History: None Reported - Past Family History Mother Family Medical History: Deep Vein Thrombosis (DVT), Myocardial Infarction (OR), Pulmonary Embolus Additional Family Medical History / Comment(s): passed from PE Father Family Medical History: CVA/TIA Additional Family Medical History / Comment(s): passed from CVA Sister(s) Family Medical History: Cancer Additional Family Medical History / Comment(s): Twin sister, basal cell carcinoma. Passed from cancer. <ArianRico rice M - Last Filed: 07/19/24 15:37> General Exam Limitations: no limitations General appearance: alert, in no apparent distress Head exam: Present: atraumatic, normocephalic, normal inspection Neck exam: Present: normal inspection, full ROM. Absent: tenderness, meningismus, lymphadenopathy Respiratory exam: Present: normal lung sounds bilaterally. Absent: respiratory distress, wheezes, rales, rhonchi, stridor Extremities exam: Present: other (Right leg there is moderate swelling compared to the left, equal color pulses, with Doppler, small posterior calf incision, right groin) Neurological exam: Present: alert, oriented X3 <ArianRico rice - Last Filed: 07/19/24 15:37> General appearance: alert, in no apparent distress Head exam: Present: atraumatic, normocephalic, normal inspection Eye exam: Present: normal appearance, PERRL, EOMI. Absent: scleral icterus, conjunctival injection, periorbital swelling ENT exam: Present: normal exam, mucous membranes moist Neck exam: Present: normal inspection. Absent: tenderness, meningismus, lymphadenopathy Respiratory exam: Present: normal lung sounds bilaterally. Absent: respiratory distress, wheezes, rales, rhonchi, stridor Cardiovascular Exam: Present: regular rate, normal rhythm, normal heart sounds. Absent: systolic murmur, diastolic murmur, rubs, gallop, clicks GI/Abdominal exam: Present: soft, normal bowel sounds. Absent: distended, tenderness, guarding, rebound, rigid Extremities exam: Present: normal inspection, full ROM, normal capillary refill. Absent: tenderness, pedal edema, joint swelling, calf tenderness Back exam: Present: normal inspection Neurological exam: Present: alert, oriented X3, CN II-XII intact Psychiatric exam: Present: normal affect, normal mood Skin exam: Present: warm, dry, intact, normal color. Absent: rash <Anibal Abbasi - Last Filed: 07/21/24 17:28> Course <Anibal Abbasi - Last Filed: 07/21/24 17:28> Vital Signs 07/19/24 07/19/24 07/19/24 15:01 17:52 19:44 Temperature 98.3 F 98.5 F 97.9 F Pulse Rate 69 105 H 112 H Pulse Rate [ Pulse Oximetery ] Respiratory 20 18 20 Rate Blood Pressure 159/99 126/88 141/95 Blood Pressure [Left Arm] O2 Sat by Pulse 93 L 98 98 Oximetry 07/19/24 20:00 Temperature 98.4 F Pulse Rate Pulse Rate [ 67 Pulse Oximetery ] Respiratory Rate Blood Pressure Blood Pressure 137/73 [Left Arm] O2 Sat by Pulse 97 Oximetry - Reevaluation(s) Reevaluation #1: 07/19/24 19:34 Medical records reviewed (Anibal Abbasi) Reevaluation #2: 07/19/24 19:36 Patient has adequate pain control (Anibal Abbasi) Reevaluation #3: 07/19/24 19:36 Patient informed of results and questions answered (Anibal Abbasi) - Consultations Consultation #1: Spoke with Dr. Blayne paulson who believes patient needs to be admitted secondary to thrombosis of surgical site (Anibal Abbasi) Consultation #2: Spoke with [facility] who agrees to admit this patient (Anibal Abbasi) Medical Decision Making - Lab Data Result diagrams: 07/21/24 05:28 07/21/24 05:28 - Radiology Data Radiology results: report reviewed (CT angio right lower extremity does show diminished flow reocclusion of prior procedure), image reviewed <Anibal Abbasi - Last Filed: 07/21/24 17:28> - Medical Decision Making 78 female will be admitted for postsurgical pain swelling and possible thrombosis, patient placed on anticoagulation to see vascular surgery (Anibal Abbasi) - Lab Data Lab Results 07/19/24 07/19/24 07/19/24 Range/Units 15:47 15:47 15:47 WBC 11.5 H (3.8-10.6) k/uL RBC 4.57 (3.80-5.40) m/uL Hgb 13.4 (11.4-16.0) gm/dL Hct 42.2 (34.0-46.0) % MCV 92.3 (80.0-100.0) fL MCH 29.3 (25.0-35.0) pg MCHC 31.8 (31.0-37.0) g/dL RDW 14.6 (11.5-15.5) % Plt Count 230 (150-450) k/uL MPV 10.1 Neutrophils % 68 % Lymphocytes % 22 % Monocytes % 5 % Eosinophils % 2 % Basophils % 1 % Neutrophils # 7.9 H (1.3-7.7) k/uL Lymphocytes # 2.6 (1.0-4.8) k/uL Monocytes # 0.6 (0-1.0) k/uL Eosinophils # 0.2 (0-0.7) k/uL Basophils # 0.1 (0-0.2) k/uL PT 11.7 (10.0-12.5) sec INR 1.1 (<1.2) APTT 22.5 (22.0-30.0) sec Sodium 137 (137-145) mmol/L Potassium 5.0 (3.5-5.1) mmol/L Chloride 104 (98-107) mmol/L Carbon Dioxide 28 (22-30) mmol/L Anion Gap 5 mmol/L BUN 26 H (7-17) mg/dL Creatinine 0.83 (0.52-1.04) mg/dL Est GFR (CKD-EPI)AfAm 79 (>60 ml/min/1.73 sqM) Est GFR (CKD-EPI)NonAf 68 (>60 ml/min/1.73 sqM) Glucose 92 (74-99) mg/dL Calcium 8.9 (8.4-10.2) mg/dL Total Bilirubin 0.8 (0.2-1.3) mg/dL AST 30 (14-36) U/L ALT 13 (4-34) U/L Alkaline Phosphatase 40 (38-126) U/L Total Protein 6.6 (6.3-8.2) g/dL Albumin 3.5 (3.5-5.0) g/dL Disposition <Rico Bernard - Last Filed: 07/19/24 15:37> Is patient prescribed a controlled substance at d/c from ED?: No Time of Disposition: 18:00 <Anibal Abbasi - Last Filed: 07/21/24 17:28> Clinical Impression: PAD (peripheral artery disease), Thrombosis of right lower extremity Disposition: ADMITTED IP TO THIS HOSP Condition: Fair
[2024-07-19] MEDS: HYDROmorphone 0.5 MG/0.5 ML SYRINGE IVP STA (15:47)
[2024-07-19 15:58] LABS: Basophils # (A) 0.1 k/uL (0-0.2); Basophils % (A) 1 %; Eosinophils # (A) 0.2 k/uL (0-0.7); Eosinophils % (A) 2 %; HCT 42.2 % (34.0-46.0); HGB 13.4 gm/dL (11.4-16.0); Lymphocytes # (A) 2.6 k/uL (1.0-4.8); Lymphocytes % (A) 22 %; MCH 29.3 pg (25.0-35.0); MCHC 31.8 g/dL (31.0-37.0); MCV 92.3 fL (80.0-100.0); Mean Platelet Volume 10.1; Monocytes # (A) 0.6 k/uL (0-1.0); Monocytes % (A) 5 %; Neutrophils # (A) 7.9 k/uL (1.3-7.7); Neutrophils % (A) 68 %; Platelet Count 230 k/uL (150-450); RBC 4.57 m/uL (3.80-5.40); RDW 14.6 % (11.5-15.5); WBC 11.5 k/uL (3.8-10.6)
[2024-07-19 16:08] LABS: ALT 13 U/L (4-34); AST 30 U/L (14-36); African American GFR (CKD) 79 (>60 ml/min/1.73 sqM); Albumin 3.5 g/dL (3.5-5.0); Alkaline Phosphatase 40 U/L (38-126); Anion Gap 5 mmol/L; Blood Urea Nitrogen 26 mg/dL (7-17); Calcium 8.9 mg/dL (8.4-10.2); Carbon Dioxide 28 mmol/L (22-30); Chloride 104 mmol/L (98-107); Glucose 92 mg/dL (74-99); INR 1.1 (<1.2); Non-African American GFR(CKD) 68 (>60 ml/min/1.73 sqM); Partial Thromboplastin Time 22.5 sec (22.0-30.0); Prothrombin Time 11.7 sec (10.0-12.5); Sodium 137 mmol/L (137-145); Total Bilirubin 0.8 mg/dL (0.2-1.3); Total Protein 6.6 g/dL (6.3-8.2)
--- NOTE | 2024-07-19 17:03 | US ---
EXAMINATION TYPE: US venous doppler duplex LE RT DATE OF EXAM: 07/19/2024 4:48 PM COMPARISON: NONE CLINICAL INDICATION: Female, 78 years old with history of pain; edema, Pain TECHNIQUE: The lower extremity deep venous system is examined utilizing real time linear array sonog ritu with graded compression, color doppler sonography, and spectral doppler. SIDE PERFORMED: Right FINDINGS: VESSELS IMAGED: Common Femoral Vein Deep Femoral Vein Greater Saphenous Vein * Femoral Vein Popliteal Vein Small Saphenous Vein * Proximal Calf Veins (* superficial vessels) Right Leg: Negative for DVT, Color Doppler imaging shows patency of the vessels. Spectral waveforms are within normal limits. . IMPRESSION: No ultrasound evidence for deep venous thrombosis. [facility], , 07/19/2024 5:01 PM
[2024-07-19] MEDS: SODIUM CHLORIDE 0.9% 500 ML 500 ML IV ONE (17:10)
--- NOTE | 2024-07-19 18:03 | CT ---
EXAMINATION TYPE: CT angio lower extremity RT DATE OF EXAM: 07/19/2024 5:15 PM COMPARISON: None available. CLINICAL INDICATION: Female, 78 years old with history of pain, recent surgery; PHH, Right leg pain a nd tenderness, recent surgery. TECHNIQUE: Axial images were obtained of the CT angio lower extremity RT, Additional coronal and sagi ttal reformatted images and soft tissue and bone window were obtained for review. 3-D reconstruction was created on a separate workstation. Contrast used:80 mL of Isovue 370 with IV Contrast, (None if empty) CT DLP: 1350.8 mGycm, Automated exposure control for dose reduction was used. FINDINGS: Aortobiiliac stent graft placement with completely occluded right common iliac stent graft and recons titution at the level of the external/internal iliac bifurcation. Complete occlusion of the [place] ft common iliac artery with reconstitution of the left external and internal iliac arteries. Bypass g rafts appear patent. Right superficial femoral artery is grossly patent. There is complete occlusion of the right popliteal artery and tibial peroneal trunk. There is some reconstitution of the anterior tibial artery and patency of the visualized portion of the dorsalis pedis artery. There is very dimi nutive flow within the right posterior tibial artery and complete occlusion of the peroneal artery. N o significant vascular flow seen within the posterior tibialis artery in the foot. Soft tissue gas and edema related to recent surgery of hemiarthroplasty in the right knee. Streak art ifact severely limits evaluation of the popliteal region. Tricompartmental right knee degenerative os teoarthritic changes. Right hip arthroplasty noted. Colonic diverticulosis partially visualized. IMPRESSION: Recent postsurgical changes related to right knee hemiarthroplasty with acute and/or chronic complete occlusion of the right popliteal artery and right tibioperoneal trunk. There is reconstitution of th e anterior tibial artery due to suspected collateral flow with some flow visualized in the dorsalis p ketan artery in the right foot. However, the left posterior tibial and peroneal arteries appear comple tely occluded without flow in the posterior tibialis artery in the right foot. No evidence of contras t extravasation to suggest active bleeding or vascular injury. Recommend correlation with any recent prior outside imaging in addition to vascular surgery consultation for further evaluation as clinical ly warranted. [facility], , 07/19/2024 6:01 PM
[2024-07-19] MEDS ORDERED: HYDROmorphone 1 MG/ML 1 ML SYRINGE IVP PRN (18:12)
[2024-07-19] MEDS ORDERED: HEPARIN SODIUM 1,000 UN/ML (10ML VL) IV PRN (18:12)
[2024-07-19] MEDS ORDERED: ONDANSETRON 4 MG/2 ML VIAL IVP PRN (18:13)
[2024-07-19] MEDS ORDERED: NALOXONE 0.4 MG/ML 1 ML VIAL IV PRN (18:13)
[2024-07-19] MEDS: HYDROmorphone 1 MG/ML 1 ML SYRINGE IVP STA (19:16)
[2024-07-19] MEDS: SODIUM CHLORIDE 0.9% 1,000 ML IV SCH (19:16)
[2024-07-19] MEDS: HEPARIN SODIUM 1,000 UN/ML (10ML VL) IV ONE (19:32)
[2024-07-19] MEDS: HEPARIN SOD,PORK IN 0.45% NACL 25,000 UNIT in 0.45% NACL 1 250ML.BAG IV SCH (19:32)
[2024-07-20] MEDS: HYDROmorphone 2 MG/ML 1 ML SYRINGE IVP PRN (02:20)
[2024-07-20] MEDS: METOPROLOL TARTRATE 50 MG TAB PO SCH (03:37)
[2024-07-20] MEDS: ASPIRIN 81 MG PO SCH (07:35)
[2024-07-20] MEDS: CYANOCOBALAMIN 500 MCG TAB PO SCH (07:35)
[2024-07-20] MEDS: VENLAFAXINE HCL ER 150 MG CAP PO SCH (07:35)
[2024-07-20] MEDS: PREGABALIN 50 MG CAP PO SCH (07:35)
[2024-07-20] MEDS: DILTIAZEM CD 240 MG CAP.ER.24H PO SCH (08:34)
[2024-07-20 10:56] LABS: Basophils % (A) 0 %; Eosinophils # (A) 0.3 k/uL (0-0.7); Eosinophils % (A) 3 %; HCT 39.3 % (34.0-46.0); Lymphocytes # (A) 1.8 k/uL (1.0-4.8); Lymphocytes % (A) 20 %; MCH 28.9 pg (25.0-35.0); MCHC 30.6 g/dL (31.0-37.0); MCV 94.3 fL (80.0-100.0); Mean Platelet Volume 10.2; Monocytes # (A) 0.6 k/uL (0-1.0); Monocytes % (A) 6 %; Neutrophils # (A) 6.2 k/uL (1.3-7.7); Neutrophils % (A) 68 %; Platelet Count 197 k/uL (150-450); RBC 4.17 m/uL (3.80-5.40); RDW 14.7 % (11.5-15.5); WBC 9.1 k/uL (3.8-10.6)
--- NOTE | 2024-07-20 12:01 | P.GSCN ---
History of Present Illness Consult date: 07/20/24 History of present illness: 78-year-old female presents status post Right distal popliteal, tibioperoneal trunk thrombectomy/endarterectomy and patch angioplasty performed on 07/14/2024. She states that she began having some lower extremity swelling and became nervous because of this. She regularly takes Xarelto at home and states that the last dose was on Sunday evening. CT of the right lower extremity performed with finding of complete occlusion of the right popliteal artery and right tibioperoneal trunk with distal reconstitution. Secondary to this, patient has been started on heparin drip. She states that she was not having any issues with bowel function and denies any constipation. In the hospital, patient did have 1 bowel movement that appeared to have bright red blood. She states she does have a history of hemorrhoids. Current hemoglobin is 12.0. Review of Systems All systems: negative Past Medical History Past Medical History: Atrial Fibrillation, Coronary Artery Disease (CAD), Chest Pain / Angina, Hypertension, Osteoarthritis (OA) Additional Past Medical History / Comment(s): lower extremity pain, extensive cardiovascular hx, diverticulitis, macular degeneration. History of Any Multi-Drug Resistant Organisms: None Reported Past Surgical History: Adenoidectomy, Heart Catheterization, Heart Catheterization With Stent, Joint Replacement, Orthopedic Surgery, Pacemaker, Tonsillectomy, Tubal Ligation Additional Past Surgical History / Comment(s): stents in lower extremities, R KNEE PARTIAL REPLACEMENT, R RACHID, COLONOSCOPY, B/L CATARACTS REMOVED W/ LENS I MPLANTS, FEM FEM CROSS OVER X 2, STENT IN L ARM, B/L GROIN STENTS, HEART STENTS X 3, BILAT CTR; pt states she currently has a "tube" that goes from her heart down to the arteries in both legs. Past Anesthesia/Blood Transfusion Reactions: No Reported Reaction Date of Last Stent Placement:: 2008 Type of Cardiac Device: Permanent Pacemaker Device Placement Date:: Pacemaker 2020 Past Psychological History: No Psychological Hx Reported Smoking Status: Former smoker Past Alcohol Use History: None Reported Additional Past Alcohol Use History / Comment(s): QUIT SMOKING 24 YEARS AGO Past Drug Use History: None Reported - Past Family History Mother Family Medical History: Deep Vein Thrombosis (DVT), Myocardial Infarction ([place]), Pulmonary Embolus Additional Family Medical History / Comment(s): passed from PE Father Family Medical History: CVA/TIA Additional Family Medical History / Comment(s): passed from CVA Sister(s) Family Medical History: Cancer Additional Family Medical History / Comment(s): Twin sister, basal cell carcinoma. Passed from cancer. Medications and Allergies Home Medications Medication Instructions Recorded Confirmed Type Cholecalciferol [Vitamin D3 (25 25 mcg PO HS 12/05/20 07/19/24 History Mcg = 1000 Iu)] Rivaroxaban [Xarelto] 20 mg PO W/SUPPER 12/05/20 07/19/24 History Venlafaxine HCl ER [Effexor XR] 150 mg PO DAILY 12/05/20 07/19/24 History HYDROcodone/APAP 10-325MG [[place] 1 tab PO Q6H PRN 07/11/23 07/19/24 History 10-325] Metoprolol Tartrate [Lopressor] 100 mg PO BID 07/11/23 07/19/24 History Cyanocobalamin (Vitamin B-12) 1,000 mcg PO DAILY 06/10/24 07/19/24 History [Vitamin B-12] Pregabalin [Lyrica] 50 mg PO TID 07/09/24 07/19/24 History Aspirin 81 mg PO DAILY tab 07/15/24 07/19/24 Rx Calcium Carbonate [Calcium] 600 mg PO HS 07/19/24 07/19/24 History Clotrimazole/Betameth Cream 1 applic TOPICAL BID PRN 07/19/24 07/19/24 History [Lotrisone] dilTIAZem HCL [Cardizem CD] 240 mg PO DAILY 07/19/24 07/19/24 History Allergies Allergy/AdvReac Type Severity Reaction Status Date / Time meclizine [From Antivert] Allergy Anaphylaxis Verified 07/19/24 18:35 diazepam [From Valium] AdvReac agitation/a Verified 07/19/24 18:35 ngry Surgical - Exam Osteopathic Statement: *. No significant issues noted on an osteopathic structural exam other than those noted in the History and Physical/Consult. Vital Signs Temp Pulse Resp BP Pulse Ox 98.3 F 69 20 159/99 93 L 07/19/24 15:01 07/19/24 15:01 07/19/24 15:01 07/19/24 15:01 07/19/24 15:01 - General well nourished, no distress - Eyes normal ocular movement - ENT no hearing loss - Neck trachea midline - Respiratory normal respiratory effort - Abdomen Soft, nontender, nondistended, no rebound, no guarding - Psychiatric oriented to time, oriented to person, oriented to place Results - Labs 07/20/24 10:36 07/19/24 15:47 Abnormal Lab Results - Last 24 Hours (Table) 07/19/24 07/19/24 07/20/24 Range/Units 15:47 15:47 01:20 WBC 11.5 H (3.8-10.6) k/uL MCHC (31.0-37.0) g/dL Neutrophils # 7.9 H (1.3-7.7) k/uL APTT 46.4 H (22.0-30.0) sec BUN 26 H (7-17) mg/dL 07/20/24 07/20/24 Range/Units 06:12 10:36 WBC (3.8-10.6) k/uL MCHC 30.6 L (31.0-37.0) g/dL Neutrophils # (1.3-7.7) k/uL APTT 43.8 H (22.0-30.0) sec BUN (7-17) mg/dL Diabetes panel 07/19/24 Range/Units 15:47 Sodium 137 (137-145) mmol/L Potassium 5.0 (3.5-5.1) mmol/L Chloride 104 (98-107) mmol/L Carbon Dioxide 28 (22-30) mmol/L BUN 26 H (7-17) mg/dL Creatinine 0.83 (0.52-1.04) mg/dL Glucose 92 (74-99) mg/dL Calcium 8.9 (8.4-10.2) mg/dL AST 30 (14-36) U/L ALT 13 (4-34) U/L Alkaline Phosphatase 40 (38-126) U/L Total Protein 6.6 (6.3-8.2) g/dL Albumin 3.5 (3.5-5.0) g/dL Calcium panel 07/19/24 Range/Units 15:47 Calcium 8.9 (8.4-10.2) mg/dL Albumin 3.5 (3.5-5.0) g/dL Pituitary panel 07/19/24 Range/Units 15:47 Sodium 137 (137-145) mmol/L Potassium 5.0 (3.5-5.1) mmol/L Chloride 104 (98-107) mmol/L Carbon Dioxide 28 (22-30) mmol/L BUN 26 H (7-17) mg/dL Creatinine 0.83 (0.52-1.04) mg/dL Glucose 92 (74-99) mg/dL Calcium 8.9 (8.4-10.2) mg/dL Adrenal panel 07/19/24 Range/Units 15:47 Sodium 137 (137-145) mmol/L Potassium 5.0 (3.5-5.1) mmol/L Chloride 104 (98-107) mmol/L Carbon Dioxide 28 (22-30) mmol/L BUN 26 H (7-17) mg/dL Creatinine 0.83 (0.52-1.04) mg/dL Glucose 92 (74-99) mg/dL Calcium 8.9 (8.4-10.2) mg/dL Total Bilirubin 0.8 (0.2-1.3) mg/dL AST 30 (14-36) U/L ALT 13 (4-34) U/L Alkaline Phosphatase 40 (38-126) U/L Total Protein 6.6 (6.3-8.2) g/dL Albumin 3.5 (3.5-5.0) g/dL Assessment and Plan Plan: 78-year-old female with concern of rectal bleeding x 1 episode. Currently, hemoglobin is 12.0. Patient is requiring anticoagulation with heparin drip secondary to occlusive disease of the right lower extremity. Will defer to vascular surgery on management. At this time, we will continue to follow for any further rectal bleeding. If any worsening of bleeding, I would recommend discontinuing any blood thinners. Patient states that she did have a colonoscopy about 2 months ago with no significant acute findings. No plan for any acute endoscopic intervention at this time, will continue to follow. Recommend patient is on bowel regimen.
[2024-07-20] MEDS: HYDROcodone/APAP 10-325MG 1 EACH TAB PO PRN (14:19)
--- NOTE | 2024-07-20 14:26 | P.GSCN ---
History of Present Illness Consult date: 07/20/24 Reason for Consult: right popliteal artery thrombosis History of present illness: 78-year-old female with history of aortobifemoral bypass, previous lower extremity angiograms and recent right distal popliteal, tibioperoneal trunk thrombectomy/endarterectomy and patch angioplasty performed on 07/14/2024 presented to the ER due to pain and swelling in the right leg. She states that she began having some lower extremity swelling and severe pain again which she was unable to talk. She regularly takes Xarelto at home and states that she did not miss any doses. CT of the right lower extremity performed with finding of complete occlusion of the right popliteal artery and right tibioperoneal trunk with distal reconstitution. Patient was admitted and started on heparin drip which she states some improvement of the pain. Since being admitted she has a bout of bloody bowel movement and heparin was stopped this morning. Per surgery patient ok to have blood thinner and will continue to monitor. Review of Systems All systems: negative (what is mentioned in the PMH or HPI) Past Medical History Past Medical History: Atrial Fibrillation, Coronary Artery Disease (CAD), Chest Pain / Angina, Hypertension, Osteoarthritis (OA) Additional Past Medical History / Comment(s): lower extremity pain, extensive cardiovascular hx, diverticulitis, macular degeneration. History of Any Multi-Drug Resistant Organisms: None Reported Past Surgical History: Adenoidectomy, Heart Catheterization, Heart Catheterization With Stent, Joint Replacement, Orthopedic Surgery, Pacemaker, Tonsillectomy, Tubal Ligation Additional Past Surgical History / Comment(s): stents in lower extremities, R KNEE PARTIAL REPLACEMENT, R RACHID, COLONOSCOPY, B/L CATARACTS REMOVED W/ LENS IMPLANTS, FEM FEM CROSS OVER X 2, STENT IN L ARM, B/L GROIN STENTS, HEART STENTS X 3, BILAT CTR; pt states she currently has a "tube" that goes from her heart down to the arteries in both legs. Past Anesthesia/Blood Transfusion Reactions: No Reported Reaction Date of Last Stent Placement:: 2008 Type of Cardiac Device: Permanent Pacemaker Device Placement Date:: Pacemaker 2020 Past Psychological History: No Psychological Hx Reported Smoking Status: Former smoker Past Alcohol Use History: None Reported Additional Past Alcohol Use History / Comment(s): QUIT SMOKING 24 YEARS AGO Past Drug Use History: None Reported - Past Family History Mother Family Medical History: Deep Vein Thrombosis (DVT), Myocardial Infarction ([place]), Pulmonary Embolus Additional Family Medical History / Comment(s): passed from PE Father Family Medical History: CVA/TIA Additional Family Medical History / Comment(s): passed from CVA Sister(s) Family Medical History: Cancer Additional Family Medical History / Comment(s): Twin sister, basal cell carcinoma. Passed from cancer. Medications and Allergies Home Medications Medication Instructions Recorded Confirmed Type Cholecalciferol [Vitamin D3 (25 25 mcg PO HS 12/05/20 07/19/24 History Mcg = 1000 Iu)] Rivaroxaban [Xarelto] 20 mg PO W/SUPPER 12/05/20 07/19/24 History Venlafaxine HCl ER [Effexor XR] 150 mg PO DAILY 12/05/20 07/19/24 History HYDROcodone/APAP 10-325MG [[place] 1 tab PO Q6H PRN 07/11/23 07/19/24 History 10-325] Metoprolol Tartrate [Lopressor] 100 mg PO BID 07/11/23 07/19/24 History Cyanocobalamin (Vitamin B-12) 1,000 mcg PO DAILY 06/10/24 07/19/24 History [Vitamin B-12] Pregabalin [Lyrica] 50 mg PO TID 07/09/24 07/19/24 History Aspirin 81 mg PO DAILY tab 07/15/24 07/19/24 Rx Calcium Carbonate [Calcium] 600 mg PO HS 07/19/24 07/19/24 History Clotrimazole/Betameth Cream 1 applic TOPICAL BID PRN 07/19/24 07/19/24 History [Lotrisone] dilTIAZem HCL [Cardizem CD] 240 mg PO DAILY 07/19/24 07/19/24 History Allergies Allergy/AdvReac Type Severity Reaction Status Date / Time meclizine [From Antivert] Allergy Anaphylaxis Verified 07/19/24 18:35 diazepam [From Valium] AdvReac agitation/a Verified 07/19/24 18:35 ngry Surgical - Exam Vital Signs Temp Pulse Resp BP Pulse Ox 98.3 F 69 20 159/99 93 L 07/19/24 15:01 07/19/24 15:01 07/19/24 15:01 07/19/24 15:01 07/19/24 15:01 Patient Seen Date: 07/20/24 Patient Seen Time: 13:50 slowed capillary refill tenderness at the incision site on the right monophasic DP and PT signal patient able to move foot without pain. - General well developed, well nourished, no distress - Eyes PERRL, normal ocular movement Results CTA lower extremity demonstrates occlusion of the right popliteal artery with reconstitution at the tibial arteries.l - Labs 07/20/24 10:36 07/19/24 15:47 Abnormal Lab Results - Last 24 Hours (Table) 07/19/24 07/19/24 07/20/24 Range/Units 15:47 15:47 01:20 WBC 11.5 H (3.8-10.6) k/uL MCHC (31.0-37.0) g/dL Neutrophils # 7.9 H (1.3-7.7) k/uL APTT 46.4 H (22.0-30.0) sec BUN 26 H (7-17) mg/dL 07/20/24 07/20/24 Range/Units 06:12 10:36 WBC (3.8-10.6) k/uL MCHC 30.6 L (31.0-37.0) g/dL Neutrophils # (1.3-7.7) k/uL APTT 43.8 H (22.0-30.0) sec BUN (7-17) mg/dL Diabetes panel 07/19/24 Range/Units 15:47 Sodium 137 (137-145) mmol/L Potassium 5.0 (3.5-5.1) mmol/L Chloride 104 (98-107) mmol/L Carbon Dioxide 28 (22-30) mmol/L BUN 26 H (7-17) mg/dL Creatinine 0.83 (0.52-1.04) mg/dL Glucose 92 (74-99) mg/dL Calcium 8.9 (8.4-10.2) mg/dL AST 30 (14-36) U/L ALT 13 (4-34) U/L Alkaline Phosphatase 40 (38-126) U/L Total Protein 6.6 (6.3-8.2) g/dL Albumin 3.5 (3.5-5.0) g/dL Calcium panel 07/19/24 Range/Units 15:47 Calcium 8.9 (8.4-10.2) mg/dL Albumin 3.5 (3.5-5.0) g/dL Pituitary panel 07/19/24 Range/Units 15:47 Sodium 137 (137-145) mmol/L Potassium 5.0 (3.5-5.1) mmol/L Chloride 104 (98-107) mmol/L Carbon Dioxide 28 (22-30) mmol/L BUN 26 H (7-17) mg/dL Creatinine 0.83 (0.52-1.04) mg/dL Glucose 92 (74-99) mg/dL Calcium 8.9 (8.4-10.2) mg/dL Adrenal panel 07/19/24 Range/Units 15:47 Sodium 137 (137-145) mmol/L Potassium 5.0 (3.5-5.1) mmol/L Chloride 104 (98-107) mmol/L Carbon Dioxide 28 (22-30) mmol/L BUN 26 H (7-17) mg/dL Creatinine 0.83 (0.52-1.04) mg/dL Glucose 92 (74-99) mg/dL Calcium 8.9 (8.4-10.2) mg/dL Total Bilirubin 0.8 (0.2-1.3) mg/dL AST 30 (14-36) U/L ALT 13 (4-34) U/L Alkaline Phosphatase 40 (38-126) U/L Total Protein 6.6 (6.3-8.2) g/dL Albumin 3.5 (3.5-5.0) g/dL Assessment and Plan Assessment: Right lower extremity popliteal artery occlusive disease Recent right popliteal artery endarterectomy/thrombectomy with patch angioplasty Claudication [place] classification 3 Morbid Obesity Hemorrhoids Plan: Reviewed CTA in full detail which demonstrates occlusion of the previous patch angioplasty site. Patient states feeling as if she has been having more episodes of atrial fibrill ation Possibly embolic to the right lower extremity. Continue heparin drip. Discussed options including angiogram and percutaneous thrombectomy but patient recently ate and therefore unable to sedate and she does not want to do without sedation. Will schedule for angiogram Sunday in an antegrade approach due to previous aortobifemoral bypass.
[2024-07-20] MEDS ORDERED: RIVAROXABAN 20 MG TAB PO SCH (17:30)
[2024-07-20] MEDS: CALCIUM CARBONATE 500 MG CHEWABLE PO SCH (20:30)
[2024-07-20] MEDS: CHOLECALCIFEROL 25 MCG (1000 IU) TABLET PO SCH (20:31)
--- NOTE | 2024-07-20 21:29 | HP ---
HISTORY AND PHYSICAL CHIEF COMPLAINT: Pain and swelling of the right lower extremity. HISTORY OF PRESENT ILLNESS: This is a 78-year-old woman with a past medical history of multiple medical problems including history of atrial fibrillation, history of CAD stent, being followed by Dr. Mendoza in the outpatient setting, was noted to have lower extremity swelling and as well as groin pain. The patient is taking Xarelto at home and the patient came to [facility] and was found to have lower extremities CTA, which I reviewed personally showed postsurgical changes and as well as complete occlusion of the right popliteal artery, and right tibioperoneal trunk with reconstitution of collateral flow. The patient was started on IV heparin, but the patient subsequently had active bleeding and the patient is being closely monitored. There is no history of any fever, rigors, or chills. Hemoglobin is 12 at this time. PAST MEDICAL HISTORY: History of atrial fibrillation, history of hypertension, history of DJD, history of CAD stent. Rest of the history and rest of the chart are also noted. HOME MEDICATIONS: Reviewed include vitamin D3. Doses and rest of medications reviewed. ALLERGIES: Antivert. FAMILY HISTORY: History of DVT and myocardial infarction. SOCIAL HISTORY: Previous history of smoking. REVIEW OF SYSTEMS: Fourteen-point review of systems is negative except as mentioned earlier. PHYSICAL EXAMINATION: VITAL SIGNS: Pulse is 148, blood pressure 138/84, respirations 18. HEENT: Conjunctivae normal. NECK: No JVD. CARDIOVASCULAR: S1, S2. RESPIRATIONS: Breath sounds diminished at the bases. Scattered rhonchi. No crackles. ABDOMEN: Soft, nontender. LEGS: No edema. Pulses diminished on the right side. NERVOUS SYSTEM: No focal deficits. LABORATORY DATA: Reviewed. ASSESSMENT: 1. Right hip pain and as well as peripheral vascular disease. 2. CT angio shows on the right leg, acute on chronic complete occlusion of the right popliteal artery and right tibioperoneal trunk with distal reconstitution. 3. Gastrointestinal bleed for evaluation. 4. Increased WBC. 5. History of atrial fibrillation. 6. History of coronary artery disease stent. RECOMMENDATIONS AND DISCUSSION: This is a 78-year-old woman, who presented with multiple complex medical issues, we will monitor the patient closely. Continue the current medications and continue symptomatic treatment. Otherwise, I would recommend telemetry. Closely follow with Vascular Surgery. Surgical evaluation noted. The patient is on IV heparin. Guarded prognosis. Further recommendations to follow. Home medications will be continued. Discussed we will follow tomorrow. Prognosis guarded. MMODL / IJN: [id number] /
[2024-07-21] MEDS: HEPARIN SODIUM 1,000 UN/ML (10ML VL) IV PRN (06:55)
[2024-07-21 08:26] LABS: BUN/Creat Ratio 18.67 Ratio (12.00-20.00); Blood Urea Nitrogen 16.8 mg/dL (9.0-27.0); Calcium 8.9 mg/dL (8.7-10.3); Carbon Dioxide 28.5 mmol/L (21.6-31.8); Chloride 104 mmol/L (96-109); Glucose 108 mg/dL (70-110); Potassium 4.6 mmol/L (3.5-5.5); Sodium 139 mmol/L (135-145)
[2024-07-21 08:33] LABS: Basophils # (A) 0.04 X 10*3/uL (0.00-0.10); Basophils % (A) 0.4 %; Eosinophils # (A) 0.41 X 10*3/uL (0.04-0.35); Eosinophils % (A) 4.3 %; HCT 38.6 % (37.2-46.3); HGB 11.9 g/dL (12.0-15.0); Lymphocytes # (A) 2.01 X 10*3/uL (0.90-5.00); Lymphocytes % (A) 20.9 %; MCH 29.6 pg (27.0-32.0); MCHC 30.8 g/dL (32.0-37.0); Mean Platelet Volume 13.5 FL (9.5-12.2); Monocytes # (A) 0.83 X 10*3/uL (0.20-1.00); Monocytes % (A) 8.6 %; NRBC Per 100 WBC 0 X 10*3/uL (0.00-0.01); Neutrophils # (A) 6.28 X 10*3/uL (1.80-7.70); Neutrophils % (A) 65.4 %; Platelet Count 213 X 10*3/uL (140-440); RBC 4.02 X 10*6/uL (4.10-5.20); RDW 15.2 % (11.5-14.5); WBC 9.61 X 10*3/uL (4.50-10.00)
--- NOTE | 2024-07-21 08:51 | P.PN ---
Subjective Progress Note Date: 07/21/24 This is a 78-year-old female who underwent a right distal popliteal, tibioperoneal trunk thrombectomy/endarterectomy and patch angioplasty on 07/14/2024. Patient presented back to the ER due to pain and swelling in the right leg. The swelling and pain were making it difficult for her to walk. Patient does take Xarelto at home and had been regularly taking, not missing any doses. CTA of the right lower extremity showed complete occlusion of the right popliteal artery and right tibioperoneal trunk with distal reconstitution. Patient was started on a heparin drip. Patient did have a bloody bowel movement after the heparin was started. She was seen and evaluated by general surgeon who is recommending continue to monitor the situation. Patient's hemoglobin has been stable. She remains on a heparin drip. Patient seen this morning sitting on the side of bed eating breakfast. She reports she is feeling well overall. Plan is for an angiogram tomorrow with Dr. Mac. Objective - Vital Signs Vital signs: Vital Signs Temp 98.8 F 07/21/24 07:10 Pulse 67 07/21/24 07:10 Resp 17 07/21/24 07:10 BP 122/69 07/21/24 07:10 Pulse Ox 97 07/21/24 07:10 FiO2 Intake & Output 07/20/24 07/21/24 07/21/24 18:59 06:59 18:59 Intake Total 229.167 124.833 Balance 229.167 124.833 Intake: Intake, IV Titration 229.167 124.833 Amount Heparin Sod,Pork in 0.45% 229.167 124.833 NaCl 25,000 unit In 0.45 % NaCl 1 250ml.bag @ 10. 207 UNITS/KG/HR 10 mls/hr IV .Q24H [facility] Rx#: [id number] Other: Voiding Method Toilet # Voids 4 # Bowel Movements 1 - Constitutional General appearance: Present: cooperative, no acute distress - EENT Eyes: Present: PERRLA - Neck Neck: Present: normal ROM. Absent: lymphadenopathy, rigidity - Respiratory Respiratory: bilateral: diminished - Cardiovascular Heart sounds: normal: S1, S2 - Gastrointestinal General gastrointestinal: Present: soft. Absent: tenderness - Integumentary Integumentary: Present: normal, normal turgor - Psychiatric Psychiatric: Present: A&O x's 3, appropriate affect, intact judgment & insight - Labs CBC & Chem 7: 07/21/24 05:28 07/21/24 05:28 Labs: Abnormal Lab Results - Last 24 Hours (Table) 07/20/24 07/21/24 07/21/24 Range/Units 10:36 05:28 05:28 RBC 4.02 L (4.10-5.20) X 10*6/uL Hgb 11.9 L (12.0-15.0) g/dL MCHC 30.6 L 30.8 L (31.0-37.0) g/dL RDW 15.2 H (11.5-14.5) % MPV 13.5 H (9.5-12.2) [place] Eosinophils # 0.41 H (0.04-0.35) X 10*3/uL APTT 38.0 H (22.0-30.0) sec Assessment and Plan (1) PAD (peripheral artery disease) Current Visit: Yes Status: Acute Code(s): I73.9 - PERIPHERAL VASCULAR DISEA SE, UNSPECIFIED SNOMED Code(s): 757696263 (2) Thrombosis of right lower extremity Current Visit: Yes Status: Acute Code(s): OLJ3288 - SNOMED Code(s): 515153241 (3) CAD (coronary artery disease) Current Visit: No Status: Acute Code(s): I25.10 - ATHSCL HEART DISEASE OF [place] CORONARY ARTERY W/O ANG PCTRS SNOMED Code(s): 19467444 (4) History of atrial fibrillation Current Visit: No Status: Acute Code(s): Z86.79 - PERSONAL HISTORY OF OTHER DISEASES OF THE CIRCULATORY SYSTEM SNOMED Code(s): 226559049 (5) Hypertension Current Visit: No Status: Acute Code(s): I10 - ESSENTIAL (PRIMARY) HYPERTENSION SNOMED Code(s): 86506662 Plan: Check CBC and CMP in the morning. Await results of angiogram tomorrow morning. Patient seen and evaluated by nurse practitioner, physician in agreement with plan.
[2024-07-21] MEDS: DOCUSATE 100 MG CAP PO SCH (10:06)
--- NOTE | 2024-07-21 12:00 | P.PN ---
Subjective Progress Note Date: 07/21/24 Principal diagnosis: Right popliteal artery thrombosis Patient is seen and examined today as a follow-up. Currently lying in bed. States pain has improved since coming in. She is on a IV heparin drip. She has full range of motion of her right lower extremity. She has been up and ambulating to the bathroom. No reported further blood in stool. Hemoglobin is stable at 11.9. She denies any shortness of breath or chest pain. Objective - Vital Signs Vital signs: Vital Signs Temp 98.8 F 07/21/24 07:10 Pulse 67 07/21/24 07:10 Resp 17 07/21/24 07:10 BP 122/69 07/21/24 07:10 Pulse Ox 97 07/21/24 07:10 FiO2 Intake & Output 07/20/24 07/21/24 07/21/24 18:59 06:59 18:59 Intake Total 229.167 124.833 Balance 229.167 124.833 Intake: Intake, IV Titration 229.167 124.833 Amount Heparin Sod,Pork in 0.45% 229.167 124.833 NaCl 25,000 unit In 0.45 % NaCl 1 250ml.bag @ 10. 207 UNITS/KG/HR 10 mls/hr IV .Q24H [facility] Rx#: [id number] Other: Voiding Method Toilet # Voids 4 # Bowel Movements 1 - Exam General appearance: The patient is alert, oriented, appears in no acute distress. HET: Head is normocephalic and atraumatic. Pupils are equal and reactive. Neck: Supple. Heart: Regular. Lungs: Equal expansion, normal respiratory effort. Abdomen: Soft, nontender, nondistended. Extremities: Normal skin color and turgor. Right groin/pannus with excoriation. Right lower extremity surgical incision to medial aspect of Well-healed. Monophasic PT and DP Doppler signal. Neurological: No focal deficits. Strength and sensation are grossly intact. - Labs CBC & Chem 7: 07/21/24 05:28 07/21/24 05:28 Labs: Abnormal Lab Results - Last 24 Hours (Table) 07/20/24 07/21/24 07/21/24 Range/Units 10:36 05:28 05:28 RBC 4.02 L (4.10-5.20) X 10*6/uL Hgb 11.9 L (12.0-15.0) g/dL MCHC 30.6 L 30.8 L (31.0-37.0) g/dL RDW 15.2 H (11.5-14.5) % MPV 13.5 H (9.5-12.2) [place] Eosinophils # 0.41 H (0.04-0.35) X 10*3/uL APTT 38.0 H (22.0-30.0) sec Assessment and Plan Assessment: Right lower extremity popliteal artery occlusive disease Recent right popliteal artery endarterectomy/thrombectomy with patch angioplasty Claudication [place] classification 3 Morbid Obesity Hemorrhoids Plan: 1. Continue IV heparin drip 2. N.p.o. after midnight 3. Plan for right lower extremity angiogram tomorrow with possible intervention 4. Rest of medical management per primary medical team Thank you for this consultation, we will continue to follow. The impression and plan of care has been dictated as directed. I performed a history and examination of this patient, discussed the same with the dictator. I agree with the dictator's note ,documented as a scribe. Any additional findings or plans will be noted.
--- NOTE | 2024-07-21 13:12 | P.PN ---
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 Patient had 1 episode of bright red blood per rectum yesterday. Since then has had no further bleeding. She does remain on IV heparin for her vascular disease in that right leg. She is scheduled for angiogram and possible procedure tomorrow with vascular service. Hemoglobin stable at 11.9 vital stable. Patient denies any abdominal pain. Denies any rectal pain. PHYSICAL EXAM: VITAL SIGNS: Reviewed. GENERAL: Well-developed in no acute distress. ABDOMEN: Soft. Nondistended. Nontender. NEUROLOGIC: Alert and oriented. Cranial nerves II through XII grossly intact. ASSESSMENT: 1. Acute GI bleed with 1 episode of bright red blood per rectum. Currently no active bleeding. Hemoglobin stable. Last colonoscopy 2 months ago with no significant acute findings 2. History of hemorrhoids PLAN: - Will continue to monitor - Patient is requiring IV heparin for occlusive disease in the right lower extremity. Okay to continue at this point patient has had no further active bleeding. If patient starts to have active bleeding, would recommend to discontinue the blood thinners - No plans for endoscopy at this time Physician Branch Associate Teller note has been reviewed by physician. Signing provider agrees with the documented findings, assessment, and plan of care. Attestation Patient seen and examined at bedside on 07/21/2024. Currently, hemoglobin 11.9. Patient had 1 episode of bright red blood per rectum. No blood in her stool since that time. She is requiring anticoagulation secondary to occlusive disease in the right lower extremity. This is okay to continue as long as there are no further signs of active bleeding. Will continue to follow and make recommendation plans based on patient's clinical progress. Elana Calles, Objective - Vital Signs Vital signs: Vital Signs Temp 98.8 F 07/21/24 07:10 Pulse 67 07/21/24 07:10 Resp 17 07/21/24 07:10 BP 122/69 07/21/24 07:10 Pulse Ox 97 07/21/24 07:10 FiO2 Intake & Output 07/20/24 07/21/24 07/21/24 18:59 06:59 18:59 Intake Total 229.167 124.833 Balance 229.167 124.833 Intake: Intake, IV Titration 229.167 124.833 Amount Heparin Sod,Pork in 0.45% 229.167 124.833 NaCl 25,000 unit In 0.45 % NaCl 1 250ml.bag @ 10. 207 UNITS/KG/HR 10 mls/hr IV .Q24H [facility] Rx#: [id number] Other: Voiding Method Toilet # Voids 4 # Bowel Movements 1 - Labs CBC & Chem 7: 07/22/24 06:06 07/23/24 06:25 Labs: Abnormal Lab Results - Last 24 Hours (Table) 07/21/24 07/21/24 Range/Units 05:28 05:28 RBC 4.02 L (4.10-5.20) X 10*6/uL Hgb 11.9 L (12.0-15.0) g/dL MCHC 30.8 L (32.0-37.0) g/dL RDW 15.2 H (11.5-14.5) % MPV 13.5 H (9.5-12.2) FL Eosinophils # 0.41 H (0.04-0.35) X 10*3/uL APTT 38.0 H (22.0-30.0) sec
[2024-07-21] MEDS: CLOTRIMAZOLE/BETAMETH 1-0.05% CREAM 45 GM TUBE TOPICAL PRN (22:50)
--- NOTE | 2024-07-22 08:13 | P.PN ---
Subjective Progress Note Date: 07/22/24 This is a 78-year-old female who underwent a right distal popliteal, tibioperoneal trunk thrombectomy/endarterectomy and patch angioplasty on 07/14/2024. Patient presented back to the ER due to pain and swelling in the right leg. The swelling and pain were making it difficult for her to walk. Patient does take Xarelto at home and had been regularly taking, not missing any doses. CTA of the right lower extremity showed complete occlusion of the right popliteal artery and right tibioperoneal trunk with distal reconstitution. Patient was started on a heparin drip. Patient did have a bloody bowel movement after the heparin was started. She was seen and evaluated by general surgeon who is recommending continue to monitor the situation. Patient's hemoglobin has been stable. She remains on a heparin drip. Patient seen this morning sitting on the side of bed eating breakfast. She reports she is feeling well overall. Plan is for an angiogram tomorrow with Dr. Mac. 07/22/2024 Patient seen this morning resting in bed comfortably. She is scheduled for a right lower extremity angiogram today. She still remains on a heparin drip. No further signs of bleeding noted. Labs for today are not back at time of dictation. Objective - Vital Signs Vital signs: Vital Signs Temp 97.9 F 07/22/24 07:13 Pulse 63 07/22/24 07:13 Resp 15 07/22/24 07:13 BP 151/66 07/22/24 07:13 Pulse Ox 97 07/22/24 07:13 FiO2 Intake & Output 07/21/24 07/22/24 07/22/24 18:59 06:59 18:59 Intake Total 365.167 280 Balance 365.167 280 Intake: Intake, IV Titration 365.167 Amount Heparin Sod,Pork in 0.45% 125.167 NaCl 25,000 unit In 0.45 % NaCl 1 250ml.bag @ 10. 207 UNITS/KG/HR 10 mls/hr IV .Q24H [facility] Rx#: [id number] Sodium Chloride 0.9% 1, 240 000 ml @ 20 mls/hr IV . Q24H [facility] Rx#:[id number] Oral 280 Other: Voiding Method Toilet # Voids 3 - Constitutional General appearance: Present: cooperative, no acute distress - EENT Eyes: Present: PERRLA - Neck Neck: Present: normal ROM. Absent: lymphadenopathy, rigidity - Respiratory Respiratory: bilateral: diminished - Cardiovascular Heart sounds: normal: S1, S2 - Gastrointestinal General gastrointestinal: Present: soft. Absent: tenderness - Integumentary Integumentary: Present: normal, normal turgor - Psychiatric Psychiatric: Present: A&O x's 3, appropriate affect, intact judgment & insight - Labs CBC & Chem 7: 07/21/24 05:28 07/21/24 05:28 Labs: Abnormal Lab Results - Last 24 Hours (Table) 07/21/24 07/21/24 07/22/24 Range/Units 05:28 12:54 06:06 RBC 4.02 L (4.10-5.20) X 10*6/uL Hgb 11.9 L (12.0-15.0) g/dL MCHC 30.8 L (32.0-37.0) g/dL RDW 15.2 H (11.5-14.5) % MPV 13.5 H (9.5-12.2) FL Eosinophils # 0.41 H (0.04-0.35) X 10*3/uL APTT 51.8 H 46.3 H (22.0-30.0) sec Assessment and Plan (1) PAD (peripheral artery disease) Current Visit: Yes Status: Acute Code(s): I73.9 - PERIPHERAL VASCULAR DISEASE, UNSPECIFIED SNOMED Code(s): 385300182 (2) Thrombosis of right lower extremity Current Visit: Yes Status: Acute Code(s): POF7978 - SNOMED Code(s): 464961327 (3) CAD (coronary artery disease) Current Visit: No Status: Acute Code(s): I25.10 - ATHSCL HEART DISEASE OF [place] CORONARY ARTERY W/O ANG PCTRS SNOMED Code(s): 66432303 (4) History of atrial fibrillation Current Visit: No Status: Acute Code(s): Z86.79 - PERSONAL HISTORY OF OTHER DISEASES OF THE CIRCULATORY SYSTEM SNOMED Code(s): 425059793 (5) Hypertension Current Visit: No Status: Acute Code(s): I10 - ESSENTIAL (PRIMARY) HYPERTENSION SNOMED Code(s): 17007129 Plan: Await results of angiogram today. Patient seen and evaluated by nurse practitioner, physician in agreement with plan.
[2024-07-22 09:12] LABS: HCT 37.6 % (37.2-46.3); HGB 11.7 g/dL (12.0-15.0); MCH 29.8 pg (27.0-32.0); MCHC 31.1 g/dL (32.0-37.0); MCV 95.9 FL (80.0-97.0); Mean Platelet Volume 13.9 FL (9.5-12.2); NRBC Per 100 WBC 0 X 10*3/uL (0.00-0.01); Platelet Count 218 X 10*3/uL (140-440); RBC 3.92 X 10*6/uL (4.10-5.20); RDW 15.4 % (11.5-14.5); WBC 10.33 X 10*3/uL (4.50-10.00)
[2024-07-22 11:22] LABS: ALT 11 U/L (8-44); AST 16 U/L (13-35); Albumin 3.4 g/dL (3.8-4.9); Albumin/Globulin Ratio 1.31 Ratio (1.60-3.17); Alkaline Phosphatase 59 U/L (41-126); Blood Urea Nitrogen 14.4 mg/dL (9.0-27.0); Calcium 8.8 mg/dL (8.7-10.3); Carbon Dioxide 27.5 mmol/L (21.6-31.8); Chloride 104 mmol/L (96-109); Globulin 2.6 g/dL (1.6-3.3); Glucose 104 mg/dL (70-110); Potassium 4.9 mmol/L (3.5-5.5); Sodium 141 mmol/L (135-145); Total Bilirubin 0.2 mg/dL (0.3-1.2)
[2024-07-22] MEDS: LIDOCAINE 1% INJ 10MG/ML (20 ML MDV) SQ ONE (12:30)
[2024-07-22] MEDS: MIDAZOLAM 2 MG/2 ML VIAL IVP ONE (12:31)
[2024-07-22] MEDS: fentaNYL (PF) 50 MCG/ML 2 ML AMP IVP ONE (12:32)
[2024-07-22] MEDS: IV FLUID CONTINUATION 1,000 ML IV ONE (12:32)
[2024-07-22] MEDS: HEPARIN SODIUM 1,000 UN/ML (10ML VL) IV ONE (13:00)
[2024-07-22] MEDS: ALTEPLASE 2 MG VIAL (CATHFLO) MISCELLANE ONE ×2 (13:28→14:50)
[2024-07-22] MEDS: NITROGLYCERIN 1000MCG/10ML SYRINGE INTRAARTER ONE (13:28)
[2024-07-22] MEDS: IOPAMIDOL-370 100ML BTL INJ ONE (13:33)
[2024-07-22] MEDS ORDERED: NALOXONE 0.4 MG/ML 1 ML VIAL IVP PRN (13:45)
--- NOTE | 2024-07-22 13:57 | P.PN ---
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 Patient had 1 episode of bright red blood per rectum 2 days ago. Since then has had no further bleeding. She does remain on IV heparin for her vascular disease in that right leg. She is scheduled for an angiogram and thrombectomy of that leg today with vascular surgery. Patient did have a bowel movement but she reports that the stool is hard. She usually takes a Dulcolax at home. Hemoglobin stable at 11.7 PHYSICAL EXAM: VITAL SIGNS: Reviewed. GENERAL: Well-developed in no acute distress. ABDOMEN: Soft. Nondistended. Nontender. NEUROLOGIC: Alert and oriented. Cranial nerves II through XII grossly intact. ASSESSMENT: 1. Acute GI bleed with 1 episode of bright red blood per rectum. Currently no active bleeding. Hemoglobin stable. Last colonoscopy 2 months ago with no significant acute findings 2. History of hemorrhoids PLAN: - Will continue to monitor - Patient is requiring IV heparin for occlusive disease in the right lower extremity. Okay to continue at this point patient has had no further active bleeding. If patient starts to have active bleeding, would recommend to discontinue the blood thinners - No plans for endoscopy at this time - Oral Dulcolax added for constipation Physician Correctional Therapy Director note has been reviewed by physician. Signing provider agrees with the documented findings, assessment, and plan of care. Objective - Vital Signs Vital signs: Vital Signs Temp 97.9 F 07/22/24 07:13 Pulse 63 07/22/24 08:39 Resp 15 07/22/24 08:39 BP 151/66 07/22/24 07:13 Pulse Ox 97 07/22/24 07:13 FiO2 Intake & Output 07/21/24 07/22/24 07/22/24 18:59 06:59 18:59 Intake Total 365.167 280 300 Balance 365.167 280 300 Intake: IV 300 Intake, IV Titration 365.167 Amount Heparin Sod,Pork in 0.45% 125.167 NaCl 25,000 unit In 0.45 % NaCl 1 250ml.bag @ 10. 207 UNITS/KG/HR 10 mls/hr IV .Q24H [facility] Rx#: [id number] Sodium Chloride 0.9% 1, 240 000 ml @ 20 mls/hr IV . Q24H [facility] Rx#:[id number] Oral 280 Other: Voiding Method Toilet Toilet # Voids 3 - Labs CBC & Chem 7: 07/22/24 06:06 07/22/24 06:06 Labs: Abnormal Lab Results - Last 24 Hours (Table) 07/22/24 07/22/24 07/22/24 Range/Units 06:06 06:06 06:06 WBC 10.33 H (4.50-10.00) X 10*3/uL RBC 3.92 L (4.10-5.20) X 10*6/uL Hgb 11.7 L (12.0-15.0) g/dL MCHC 31.1 L (32.0-37.0) g/dL RDW 15.4 H (11.5-14.5) % MPV 13.9 H (9.5-12.2) FL APTT 46.3 H (22.0-30.0) sec Est GFR (CKD-EPI) 58 L (>=60) Total Bilirubin 0.2 L (0.3-1.2) mg/dL Total Protein 6.0 L (6.2-8.2) g/dL Albumin 3.4 L (3.8-4.9) g/dL Albumin/Globulin Ratio 1.31 L (1.60-3.17) Ratio Assessment and Plan Assessment: No bleeding Okay for anticoagulation Hemoglobin stable Time with Patient: Less than 30
--- NOTE | 2024-07-22 14:14 | IR ---
EXAMINATION TYPE: IR angio lower extremity RT DATE OF EXAM: 07/22/2024 CLINICAL INDICATION: Female, 78 years old with history of right leg pain, 9.5 min fluoro, 0.636Vcjy3, TECHNIQUE: Fluoroscopy. COMPARISON: None. FINDINGS: Fluoroscopic guidance was provided during right lower extremity angiogram procedure perfor med by Dr. Mac. A total of 9.5 minutes of fluoroscopic time was utilized during the procedure an d 291 spot images was acquired. TOTAL DAP = 0.255 Gycm2. IMPRESSION: As Above. [facility], , 07/22/2024 2:11 PM
[2024-07-22] MEDS: bisacodyL 5 MG TABLET.DR PO SCH (16:43)
[2024-07-22 23:18] VITALS: RESP 16
[2024-07-23 07:11] LABS: African American GFR (CKD) 79 (>60 ml/min/1.73 sqM); Non-African American GFR(CKD) 68 (>60 ml/min/1.73 sqM)
--- NOTE | 2024-07-23 08:26 | P.DS ---
Providers Date of admission: 07/19/24 18:13 Attending physician: Lewis Mendoza Consults: 07/19/24 18:13 Consult Physician Routine Consulting Provider: Caleb Mac Consult Reason/Comments: known Do you want consulting provider notified?: Yes 07/20/24 11:00 Consult Physician Routine Consulting Provider: Elana Calles Consult Reason/Comments: rectal bleeding Do you want consulting provider notified?: Yes Primary care physician: Lewis Mendoza Hospital Course: This discharge summary a 78-year-old white female essential admitted for postop thrombosis after having initial thrombectomy. Significant PAD and small caliber arterial disease is noted. The patient ended up having appropriate revision. We will continue current regimen of anticoagulation but I need to question whether Eliquis might be more beneficial. She will be discharged in stable condition to follow-up once cleared by vascular surgery see me in 7 days Patient Condition at Discharge: Fair Plan - Discharge Summary Discharge Rx Participant: No New Discharge Prescriptions: Continue Venlafaxine HCl ER [Effexor XR] 150 mg PO DAILY Rivaroxaban [Xarelto] 20 mg PO W/SUPPER Metoprolol Tartrate [Lopressor] 100 mg PO BID HYDROcodone/APAP 10-325MG [[place] 10-325] 1 tab PO Q6H PRN PRN Reason: Pain Pregabalin [Lyrica] 50 mg PO TID Cholecalciferol [Vitamin D3 (25 Mcg = 1000 Iu)] 25 mcg PO HS Cyanocobalamin (Vitamin B-12) [Vitamin B-12] 1,000 mcg PO DAILY Aspirin 81 mg PO DAILY tab dilTIAZem HCL [Cardizem CD] 240 mg PO DAILY Clotrimazole/Betameth Cream [Lotrisone] 1 applic TOPICAL BID PRN PRN Reason: Skin Irritation Calcium Carbonate [Calcium] 600 mg PO HS Discharge Medication List Cholecalciferol [Vitamin D3 (25 Mcg = 1000 Iu)] 25 mcg PO HS 12/05/20 [History] Rivaroxaban [Xarelto] 20 mg PO W/SUPPER 12/05/20 [History] Venlafaxine HCl ER [Effexor XR] 150 mg PO DAILY 12/05/20 [History] HYDROcodone/APAP 10-325MG [[place] 10-325] 1 tab PO Q6H PRN 07/11/23 [History] Metoprolol Tartrate [Lopressor] 100 mg PO BID 07/11/23 [History] Cyanocobalamin (Vitamin B-12) [Vitamin B-12] 1,000 mcg PO DAILY 06/10/24 [History] Pregabalin [Lyrica] 50 mg PO TID 07/09/24 [History] Aspirin 81 mg PO DAILY tab 07/15/24 [Rx] Calcium Carbonate [Calcium] 600 mg PO HS 07/19/24 [History] Clotrimazole/Betameth Cream [Lotrisone] 1 applic TOPICAL BID PRN 07/19/24 [History] dilTIAZem HCL [Cardizem CD] 240 mg PO DAILY 07/19/24 [History] Follow up Appointment(s)/Referral(s): Elana Calles DO [Doctor of Osteopathic Medicine] - As Needed Lewis Mendoza MD [Primary Care Provider] - 1 Week Discharge Disposition: HOME SELF-CARE
[2024-07-23 09:03] VITALS: BP 103/63; PULSE 85; TEMP 98.5
--- NOTE | 2024-07-23 10:12 | P.PN ---
Subjective Progress Note Date: 07/23/24 Principal diagnosis: Right popliteal artery thrombosis Patient seen and examined today as a follow-up. She is postop day #1 for right lower extremity percutaneous thrombectomy. She states that pain is improved. Leg and foot is warm. Sensorimotor intact. She has been up and ambulating in her room. Voiding without difficulty. No bleeding from right groin. Does have excoriation in the right groin and pannus area. Objective - Vital Signs Vital signs: Vital Signs Temp 98.5 F 07/23/24 09:00 Pulse 85 07/23/24 09:00 Resp 16 07/23/24 09:00 BP 103/63 07/23/24 09:00 Pulse Ox 97 07/23/24 09:00 FiO2 Intake & Output 07/22/24 07/23/24 07/23/24 18:59 06:59 18:59 Intake Total 730 236 Balance 730 236 Weight 97.2 kg Intake: IV 300 Intake, IV Titration 250 Amount Heparin Sod,Pork in 0.45% 250 NaCl 25,000 unit In 0.45 % NaCl 1 250ml.bag @ 10. 207 UNITS/KG/HR 10 mls/hr IV .Q24H [facility] Rx#: [id number] Oral 180 236 Other: Voiding Method Toilet Bedpan # Voids 1 4 # Bowel Movements 1 1 - Exam General appearance: The patient is alert, oriented, appears in no acute distress. HET: Head is normocephalic and atraumatic. Pupils are equal and reactive. Neck: Supple. Heart: Regular. Lungs: Equal expansion, normal respiratory effort. Abdomen: Soft, nontender, nondistended. Extremities: Normal skin color and turgor. Right groin/pannus with excoriation. Right lower extremity surgical incision to medial aspect of Well-healed. posi tive palpable right DP pulse, faint. DP and PT Doppler signal obtained. Neurological: No focal deficits. Strength and sensation are grossly intact. 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 Prescription coverage checked for Eliquis. Recommend discontinuing Xarelto and starting Eliquis 5 mg twice daily. Patient agreeable 2. Start Eliquis 5 mg twice daily, discontinue heparin drip 3. Encourage ambulation 4. Patient is cleared from vascular surgery for discharge. Discharge instructions reviewed with patient. Thank you for this consultation, we will sign off at this time. The impression and plan of care has been dictated as directed. Dr. Mac I performed a history and examination of this patient, discussed the same with the dictator. I agree with the dictator's note ,documented as a scribe. Any additional findings or plans will be noted.
[2024-07-23] MEDS: APIXABAN 5 MG TAB PO SCH (10:23)
--- NOTE | 2024-07-23 13:43 | P.PN ---
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 Patient had 1 episode of bright red blood per rectum 3 days ago. Since then has had no further bleeding. Patient had a hard BM. She is being discharged today. Status post vascular procedure yesterday. hgb 11.7 PHYSICAL EXAM: VITAL SIGNS: Reviewed. GENERAL: Well-developed in no acute distress. ABDOMEN: Soft. Nondistended. Nontender. NEUROLOGIC: Alert and oriented. Cranial nerves II through XII grossly intact. ASSESSMENT: 1. Acute GI bleed with 1 episode of bright red blood per rectum. Likely due to bleeding hemorrhoid. Currently no active bleeding. Hemoglobin stable. Last colonoscopy 2 months ago with no significant acute findings 2. History of hemorrhoids PLAN: -No active bleeding. Hemoglobin remained stable. -Okay for anticoagulation -No plans for endoscopy at this time -Continue a bowel regimen to avoid constipation Physician Chronic Specialist note has been reviewed by physician. Signing provider agrees with the documented findings, assessment, and plan of care. Objective - Vital Signs Vital signs: Vital Signs Temp 98.5 F 07/23/24 09:00 Pulse 85 07/23/24 09:00 Resp 16 07/23/24 09:00 BP 103/63 07/23/24 09:00 Pulse Ox 97 07/23/24 09:00 FiO2 Intake & Output 07/22/24 07/23/24 07/23/24 18:59 06:59 18:59 Intake Total 730 236 Balance 730 236 Weight 97.2 kg Intake: IV 300 Intake, IV Titration 250 Amount Heparin Sod,Pork in 0.45% 250 NaCl 25,000 unit In 0.45 % NaCl 1 250ml.bag @ 10. 207 UNITS/KG/HR 10 mls/hr IV .Q24H [facility] Rx#: [id number] Oral 180 236 Other: Voiding Method Toilet Bedpan # Voids 1 4 # Bowel Movements 1 1 - Labs CBC & Chem 7: 07/22/24 06:06 07/23/24 06:25 Labs: Abnormal Lab Results - Last 24 Hours (Table) 07/22/24 07/23/24 Range/Units 20:28 06:25 APTT 54.1 H 47.1 H (22.0-30.0) sec
--- NOTE | 2024-07-23 21:33 | P.OP ---
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% Procedure(s) Performed: Percutaneous antegrade access under ultrasound guidance of the right superficial femoral artery Right lower extremity selective angiogram second-order Percutaneous thrombectomy of the right distal popliteal, tibioperoneal trunk, anterior tibial artery Percutaneous transluminal balloon angioplasty of the distal popliteal, tibioperoneal trunk and anterior tibial artery Percutaneous closure of the right superficial femoral artery access with Vascade device Conscious sedation time 60 minutes Anesthesia: local Surgeon: Caleb Mac Estimated Blood Loss (ml): 200 Pathology: none sent Condition: stable Disposition: PACU Indications for Procedure: 78-year-old female with history of right lower extremity claudication [place] classification 3 presented originally to the hospital for right lower extremity bypass and underwent popliteal artery thrombectomy and endarterectomy with improvement of her inflow and therefore a patch angioplasty of the tibioperoneal trunk. She was discharged at that time and then returned due to acute onset of significant pain in her right lower extremity and inability to walk without discomfort. She was found to have thrombosis involving her surgical site at the distal popliteal and tibioperoneal trunk with reconstitution of the anterior tibial and distal tibial vessels. She was placed on heparin drip and taken to the [facility] today for percutaneous thrombectomy. Description of Procedure: After written and informed consent was obtained the patient all risks, benefits and complications were described patient is brought to the [facility] and laid sup ine position. The area of the right groin was prepped and draped in usual sterile fashion. Timeout was performed in normal fashion. Utilizing ultrasound the right femoral artery was accessed in an antegrade fashion and a 6 F sheath was placed. Selective angiogram was then obtained of the right lower extremity demonstrating short occlusion of the distal popliteal and tibioperoneal trunk with reconstitution of the anterior tibial artery and wisps of flow to the distal peroneal and posterior tibial artery. Patient was given heparin and followed with ACTs. Utilizing 035 Glidewire and quick cross catheter the lesion was crossed and selective angiogram distally was obtained demonstrating good intraluminal access. Once across a penumbra 6 Turkish catheter was then placed over the wire just above the thrombosis and multiple passes and thrombectomy was performed through this area extending into the anterior tibial artery. Large amount of thrombus was removed. Once completed angiogram was obtained demonstrating improvement of the thrombosed area with decreased flow noted through the tibioperoneal trunk and into the anterior tibial artery. An 014 wire was then exchanged with the 035 wire to allow for a smaller balloon and a 2.5 mm x 80 mm balloon was then placed across the anterior tibial artery. Balloon angioplasty was then performed with the 2.5 mm balloon as well as a 3 mm balloon. Final angiogram demonstrated brisk flow through this area without any residual thrombus with good one-vessel brisk runoff to the foot as well as flow through her other tibial vessels which was sparse. All guidewires and catheters were then removed the sheath was removed utilizing a Vascade closure device the access was closed. Pressure was placed for hemostasis. The patient tolerated the procedure well and had palpable DP pulse and was sent to recovery.
== END 2024-07-23 11:11 | disposition home or self-care (01) | DRG 271 ==
LOC: EC 15:00 → 4SSUR 18:13 → 3SCARD 07-22 12:33
PROVIDERS: ADMIT Family Medicine; ATTEND Family Medicine
PROC: 04CM3ZZ Extirpation of Matter from Right Popliteal Artery, Percutaneous Approach (ICD-10-PCS; principal; 2024-07-23)
PROC: 047P3ZZ Dilation of Right Anterior Tibial Artery, Percutaneous Approach (ICD-10-PCS; 2024-07-23)
PROC: 04U Lower Arteries, Supplement (ICD-10-PCS; 2024-07-23)
DX: I74.3 Embolism and thrombosis of arteries of the lower extremities (principal); I82.431 Acute embolism and thrombosis of right popliteal vein; E66.01 Morbid (severe) obesity due to excess calories; I10 Essential (primary) hypertension; I70.201 Unspecified atherosclerosis of native arteries of extremities, right leg; Z68.41 Body mass index [BMI] 40.0-44.9, adult; I48.91 Unspecified atrial fibrillation; K64.9 Unspecified hemorrhoids; Z95.5 Presence of coronary angioplasty implant and graft; Z95.0 Presence of cardiac pacemaker; Z87.891 Personal history of nicotine dependence; I25.10 Atherosclerotic heart disease of native coronary artery without angina pectoris; Z79.01 Long term (current) use of anticoagulants; I70.92 Chronic total occlusion of artery of the extremities; Z79.82 Long term (current) use of aspirin; Z79.899 Other long term (current) drug therapy; Z80.8 Family history of malignant neoplasm of other organs or systems; Z82.49 Family history of ischemic heart disease and other diseases of the circulatory system; Z98.42 Cataract extraction status, left eye; Z98.41 Cataract extraction status, right eye; Z88.8 Allergy status to other drugs, medicaments and biological substances; Z98.51 Tubal ligation status; Z96.1 Presence of intraocular lens
CPT/HCPCS: 36415; 37184; 37228; 75710; 80048; 80053; 82565; 85025; 85027; 85610; 85730; 96374; 96375; 96376; 99284